=== PATIENT | female | born 1940 | race Caucasian/White ===

== ENCOUNTER 2019-08-20 21:37 | Emergency (ER) | payer OTHER, MEDICARE ==
[2019-08-20 21:45] VITALS: RESP 18; TEMP 99.2
--- NOTE | 2019-08-20 21:56 | ED ---
Fall HPI - General Chief Complaint: Fall Stated Complaint: Fall - Head injury Time Seen by Provider: 08/20/19 21:50 Source: patient, EMS, RN notes reviewed, old records reviewed Mode of arrival: EMS Limitations: no limitations - History of Present Illness Initial Comments: This is an 79-year-old female to the ER status post fall showed a trip and fall with positive LOC prior to arrival. Patient is accepted in transfer secondary to a facility not having a CAT scan. Patient had sustained laceration. Patient states this point she has a mild headache but nothing significant. No nausea or vomiting not on blood thinners. 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 ROS Other: All systems not noted in ROS Statement are negative. Past Medical History Past Medical History: Hypertension, Renal Disease History of Any Multi-Drug Resistant Organisms: None Reported Past Surgical History: Bowel Resection Past Psychological History: No Psychological Hx Reported Smoking Status: Never smoker Past Alcohol Use History: None Reported Past Drug Use History: None Reported General Exam General appearance: alert, in no apparent distress Head exam: Present: normocephalic, normal inspection. Absent: atraumatic (Patient does have bandages to face laceration which is repaired) Eye exam: Present: normal appearance, PERRL, EOMI. Absent: scleral icterus, conjunctival injection, periorbital swelling ENT exam: Present: normal exam, mucous membranes moist Neck exam: Present: normal inspection. Absent: tenderness, meningismus, lymphadenopathy Respiratory exam: Present: normal lung sounds bilaterally. Absent: respiratory distress, wheezes, rales, rhonchi, stridor Cardiovascular Exam: Present: regular rate, normal rhythm, normal heart sounds. Absent: systolic murmur, diastolic murmur, rubs, gallop, clicks GI/Abdominal exam: Present: soft, normal bowel sounds. Absent: distended, tenderness, guarding, rebound, rigid Extremities exam: Present: normal inspection, full ROM, normal capillary refill. Absent: tenderness, pedal edema, joint swelling, calf tenderness Back exam: Present: normal inspection Neurological exam: Present: alert, oriented X3, CN II-XII intact Psychiatric exam: Present: normal affect, normal mood Skin exam: Present: warm, dry, intact, normal color. Absent: rash Course Vital Signs 08/20/19 21:41 Temperature 99.2 F Pulse Rate 76 Respiratory 18 Rate Blood Pressure 165/80 O2 Sat by Pulse 98 Oximetry - Reevaluation(s) Reevaluation #1: 08/20/19 22:03 Medical record transferring record is reviewed including prior lab tests Reevaluation #2: 08/20/19 22:33 Spoke with patient and family regarding findings here in computed tomography scan the transfer for definitive treatment - Consultations Consultation #1: spoke with Britni Bradshaw who is agreeable for transfer. Medical Decision Making - Medical Decision Making 79 female to the ED for evaluation patient closely for evaluation regards to fall patient has positive intraparenchymal hemorrhage. Patient accepted in transfer for CT scan due to the gall, patient will now be transferred for further evaluation management per neurosurgery - Radiology Data Radiology results: report reviewed (CT brain and C-spine and facial bones is negative for traumatic fracture but does have intraparenchymal hemorrhage), image reviewed Disposition Clinical Impression: Fall, Traumatic intraparenchymal hemorrhage Disposition: OTHER INSTITUTION NOT DEFINED Condition: Serious Is patient prescribed a controlled substance at d/c from ED?: No Referrals: Nonstaff,Physician [Primary Care Provider] - 1-2 days - Out of Hospital Transfer - Req. Specs Out of Hospital Transfer - Requested Specifics: Other Emergency Center ([facility]ni [facility]shaw)
[2019-08-20 22:31] LABS: Appearance,Urine Cloudy (Clear); Bacteria,Urine Many /hpf; Bilirubin,Urine Negative (Negative); Blood,Urine Small (Negative); Color,Urine Light Yellow; Glucose,Urine (UA) Negative (Negative); Ketones,Urine Negative (Negative); Leukocyte Esterase,Urine Large (Negative); Nitrite,Urine Negative (Negative); Protein,Urine 1+ (Negative); RBC,Urine 5 /hpf (0-5); Specific Gravity,Urine 1.008 (1.001-1.035); Squamous Epithelial Cell,Urine 1 /hpf (0-4); Urobilinogen,Urine <2.0 mg/dL (<2.0); WBC,Urine >182 /hpf (0-5)
--- NOTE | 2019-08-20 22:35 | CT ---
EXAMINATION TYPE: CT brain sheila rosen DATE OF EXAM: 08/20/2019 COMPARISON: None HISTORY: Fall with head injury. CT DLP: 1120.1 mGycm Automated exposure control for dose reduction was used. There are multiple areas of subarachnoid and parenchymal hemorrhage involving both frontal lobes and also the left temporal lobe. Areas measure up to 12 mm. There is no midline shift. Ventricles have no rmal size. The skull base is intact. Calvarium is intact. Cervical vertebra have normal alignment. Disc spaces are fairly normal. There is minor spurring of th e endplates. Facet joints are intact. There is hypertrophic mild multilevel facet arthropathy. IMPRESSION: Acute parenchymal and subarachnoid hemorrhage involving both frontal lobes and left temporal lobe. No mass effect. Negative CT scan cervical spine. Minor facet arthropathy. Exam was discussed with Dr. Berger at 10:30 PM.
--- NOTE | 2019-08-20 22:43 | CT ---
EXAMINATION TYPE: CT facial bones wo con DATE OF EXAM: 08/20/2019 COMPARISON: None HISTORY: Fall with head injury. CT DLP: 1120.1 mGycm Automated exposure control for dose reduction was used. Multiple axial sections were obtained from the bottom of the mandible to the top of the frontal sinus es without contrast. The mandibular ring is intact. Temporomandibular joints are intact. Zygomatic arches appear normal. S kull base is intact. Maxilla is intact. There is fairly normal aeration of the paranasal sinuses. The re is normal aeration of the mastoid sinuses. Nasal bone is intact. There is no evidence of orbital m ass. The globes are symmetric. I see no evidence of a fracture. There is no evidence of blowout fract ure. IMPRESSION: No evidence of a facial bone fracture. Normal paranasal sinuses.
[2019-08-20] MEDS ORDERED: cefTRIAXone IN SWFI 1,000 MG/10 ML SYRINGE IVP STA (22:49)
[2019-08-20] MEDS ORDERED: MORPHINE SULFATE 4 MG/ML SYRINGE IVP STA (22:49)
[2019-08-20] MEDS ORDERED: ONDANSETRON 4 MG/2 ML VIAL IVP STA (22:49)
[2019-08-20] MEDS ORDERED: ACETAMINOPHEN TAB 500 MG TAB PO STA (23:12)
[2019-08-20 23:45] VITALS: BP 161/72; PULSE 68
== END 2019-08-20 23:43 | disposition other institution (70) ==
LOC: EC 21:37
DX: S06.300A Unspecified focal traumatic brain injury without loss of consciousness, initial encounter (principal); I10 Essential (primary) hypertension; W01.198A Fall on same level from slipping, tripping and stumbling with subsequent striking against other object, initial encounter
CPT/HCPCS: 81001; 87086; 72125; 70486; 70450; 99285; 96374; 96375; J2405; J0696; 87077; 87186

== ENCOUNTER 2020-10-14 13:16 | Inpatient (IN) | payer MEDICARE, OTHER ==
--- NOTE | 2020-10-14 13:52 | ED ---
General Adult HPI - General Chief complaint: Abdominal Pain Stated complaint: ABD pain Time Seen by Provider: 10/14/20 13:29 Source: patient, family, RN notes reviewed, old records reviewed Mode of arrival: wheelchair Limitations: no limitations - History of Present Illness Initial comments: 80-year-old female history of chronic kidney disease presenting for evaluation of abdominal distention, bloating, lower extremity edema. Patient was seen at an outside hospital on June [address] which showed concern for liver cirrhosis and ascites. She has no previous history of liver disease. She denies fever. States her abdomen is distended with a mild amount of pain. This is been present for approximately one week. She does follow with nephrology regarding her chronic kidney disease and has a left upper extremity fistula but is not currently on hemodialysis. - Related Data Allergies Allergy/AdvReac Type Severity Reaction Status Date / Time No Known Allergies Allergy Verified 10/14/20 13:22 Review of Systems ROS Statement: Those systems with pertinent positive or pertinent negative responses have been documented in the HPI. ROS Other: All systems not noted in ROS Statement are negative. Past Medical History Past Medical History: Hypertension, Renal Disease History of Any Multi-Drug Resistant Organisms: None Reported Past Surgical History: Bowel Resection Past Psychological History: No Psychological Hx Reported Smoking Status: Never smoker Past Alcohol Use History: None Reported Past Drug Use History: None Reported General Exam Limitations: no limitations General appearance: alert, in no apparent distress Head exam: Present: atraumatic, normocephalic Eye exam: Present: normal appearance, PERRL ENT exam: Present: normal exam Neck exam: Present: normal inspection Respiratory exam: Present: rales. Absent: respiratory distress Cardiovascular Exam: Present: regular rate, normal rhythm GI/Abdominal exam: Present: distended, tenderness. Absent: guarding, rebound Extremities exam: Present: pedal edema Neurological exam: Present: alert, oriented X3, CN II-XII intact. Absent: motor sensory deficit Psychiatric exam: Present: normal affect, normal mood Skin exam: Present: warm, dry, intact. Absent: cyanosis, diaphoretic Course Vital Signs 10/14/20 10/14/20 13:17 14:22 Temperature 97.6 F Pulse Rate 62 70 Respiratory 18 18 Rate Blood Pressure 148/69 132/70 O2 Sat by Pulse 100 99 Oximetry - Reevaluation(s) Reevaluation #1: 10/14/20 15:[address] [facility] will be obtained Medical Decision Making - Medical Decision Making 80-year-old female presenting with abdominal distention, generalized abdominal pain. Patient was noted to have ascites and cirrhosis on CT performed to 5 days prior at outside hospital. These records will be obtained. She has a mild leukocytosis 11.4, hemoglobin stable at 12.2. She has an INR of 1.2, she is acidotic with chronic kidney disease and elevated creatinine. She has an albumin 2.7. She will be admitted, case has been discussed with Dr. Ding, gastroenterology will be placed on consult. - Lab Data Result diagrams: 10/14/20 14:04 10/14/20 14:04 Lab Results 10/14/20 10/14/20 10/14/20 Range/Units 14:04 14:04 14:04 WBC 11.4 H (3.8-10.6) k/uL RBC 3.79 L (3.80-5.40) m/uL Hgb 12.2 (11.4-16.0) gm/dL Hct 40.5 (34.0-46.0) % MCV 106.8 H (80.0-100.0) fL MCH 32.1 (25.0-35.0) pg MCHC 30.1 L (31.0-37.0) g/dL RDW 15.1 (11.5-15.5) % Plt Count 154 (150-450) k/uL MPV 7.6 Neutrophils % 77 % Lymphocytes % 12 % Monocytes % 9 % Eosinophils % 2 % Basophils % 0 % Neutrophils # 8.7 H (1.3-7.7) k/uL Lymphocytes # 1.3 (1.0-4.8) k/uL Monocytes # 1.0 (0-1.0) k/uL Eosinophils # 0.2 (0-0.7) k/uL Basophils # 0.0 (0-0.2) k/uL Hypochromasia Marked Macrocytosis Moderate PT 12.5 H (9.0-12.0) sec INR 1.2 H (<1.2) APTT 25.1 (22.0-30.0) sec Sodium (137-145) mmol/L Potassium (3.5-5.1) mmol/L Chloride (98-107) mmol/L Carbon Dioxide (22-30) mmol/L Anion Gap mmol/L BUN (7-17) mg/dL Creatinine (0.52-1.04) mg/dL Est GFR (CKD-EPI)AfAm (>60 ml/min/1.73 sqM) Est GFR (CKD-EPI)NonAf (>60 ml/min/1.73 sqM) Glucose (74-99) mg/dL Calcium (8.4-10.2) mg/dL Total Bilirubin (0.2-1.3) mg/dL AST (14-36) U/L ALT (4-34) U/L Alkaline Phosphatase (38-126) U/L Ammonia (<30) umol/L Total Protein (6.3-8.2) g/dL Albumin (3.5-5.0) g/dL Amylase (30-110) U/L Lipase (23-300) U/L Urine Color Yellow Urine Appearance Cloudy H (Clear) Urine pH 6.0 (5.0-8.0) Ur Specific [place] 1.013 (1.001-1.035) Urine Protein 1+ H (Negative) Urine Glucose (UA) Negative (Negative) Urine Ketones Negative (Negative) Urine Blood Trace H (Negative) Urine Nitrite Negative (Negative) Urine Bilirubin Negative (Negative) Urine Urobilinogen 2.0 (<2.0) mg/dL Ur Leukocyte Esterase Large H (Negative) Urine RBC 4 (0-5) /hpf Urine WBC 3 (0-5) /hpf Ur Squamous Epith Cells 7 H (0-4) /hpf Urine Bacteria Occasional H (None) /hpf Urine Mucus Rare H (None) /hpf 10/14/20 10/14/20 Range/Units 14:04 14:04 WBC (3.8-10.6) k/uL RBC (3.80-5.40) m/uL Hgb (11.4-16.0) gm/dL Hct (34.0-46.0) % MCV (80.0-100.0) fL MCH (25.0-35.0) pg MCHC (31.0-37.0) g/dL RDW (11.5-15.5) % Plt Count (150-450) k/uL MPV Neutrophils % % Lymphocytes % % Monocytes % % Eosinophils % % Basophils % % Neutrophils # (1.3-7.7) k/uL Lymphocytes # (1.0-4.8) k/uL Monocytes # (0-1.0) k/uL Eosinophils # (0-0.7) k/uL Basophils # (0-0.2) k/uL Hypochromasia Macrocytosis PT (9.0-12.0) sec INR (<1.2) APTT (22.0-30.0) sec Sodium 137 (137-145) mmol/L Potassium 4.1 (3.5-5.1) mmol/L Chloride 116 H (98-107) mmol/L Carbon Dioxide 12 L (22-30) mmol/L Anion Gap 9 mmol/L BUN 24 H (7-17) mg/dL Creatinine 2.81 H (0.52-1.04) mg/dL Est GFR (CKD-EPI)AfAm 17 (>60 ml/min/1.73 sqM) Est GFR (CKD-EPI)NonAf 15 (>60 ml/min/1.73 sqM) Glucose 113 H (74-99) mg/dL Calcium 7.7 L (8.4-10.2) mg/dL Total Bilirubin 0.5 (0.2-1.3) mg/dL AST 20 (14-36) U/L ALT 11 (4-34) U/L Alkaline Phosphatase 180 H (38-126) U/L Ammonia <9 (<30) umol/L Total Protein 6.3 (6.3-8.2) g/dL Albumin 2.7 L (3.5-5.0) g/dL Amylase 53 (30-110) U/L Lipase 112 (23-300) U/L Urine Color Urine Appearance (Clear) Urine pH (5.0-8.0) Ur Specific [place] (1.001-1.035) Urine Protein (Negative) Urine Glucose (UA) (Negative) Urine Ketones (Negative) Urine Blood (Negative) Urine Nitrite (Negative) Urine Bilirubin (Negative) Urine Urobilinogen (<2.0) mg/dL Ur Leukocyte Esterase (Negative) Urine RBC (0-5) /hpf Urine WBC (0-5) /hpf Ur Squamous Epith Cells (0-4) /hpf Urine Bacteria (None) /hpf Urine Mucus (None) /hpf Disposition Clinical Impression: Abdominal pain, Ascites Disposition: ADMITTED IP TO THIS HOSP Condition: Stable Is patient prescribed a controlled substance at d/c from ED?: No Referrals: Nonstaff,Physician [Primary Care Provider] - 1-2 days Decision to Admit Reason: Admit from EC Decision Date: 10/14/20 Decision Time: 15:30
[2020-10-14 14:37] LABS: Appearance,Urine Cloudy (Clear); Bacteria,Urine Occasional /hpf; Bilirubin,Urine Negative (Negative); Blood,Urine Trace (Negative); Color,Urine Yellow; Glucose,Urine (UA) Negative (Negative); Ketones,Urine Negative (Negative); Leukocyte Esterase,Urine Large (Negative); Mucus,Urine Rare /hpf; Nitrite,Urine Negative (Negative); Protein,Urine 1+ (Negative); RBC,Urine 4 /hpf (0-5); Specific Gravity,Urine 1.013 (1.001-1.035); Squamous Epithelial Cell,Urine 7 /hpf (0-4); WBC,Urine 3 /hpf (0-5)
[2020-10-14 14:38] LABS: Albumin 2.7 g/dL (3.5-5.0); Calcium 7.7 mg/dL (8.4-10.2); Total Bilirubin 0.5 mg/dL (0.2-1.3); Total Protein 6.3 g/dL (6.3-8.2)
[2020-10-14 14:40] LABS: Basophils % (A) 0 %; Eosinophils # (A) 0.2 k/uL (0-0.7); Eosinophils % (A) 2 %; HCT 40.5 % (34.0-46.0); HGB 12.2 gm/dL (11.4-16.0); Hypochromasia Marked; Lymphocytes # (A) 1.3 k/uL (1.0-4.8); Lymphocytes % (A) 12 %; MCH 32.1 pg (25.0-35.0); MCHC 30.1 g/dL (31.0-37.0); MCV 106.8 fL (80.0-100.0); Macrocytosis Moderate; Mean Platelet Volume 7.6; Monocytes % (A) 9 %; Neutrophils # (A) 8.7 k/uL (1.3-7.7); Neutrophils % (A) 77 %; Platelet Count 154 k/uL (150-450); RBC 3.79 m/uL (3.80-5.40); RDW 15.1 % (11.5-15.5); WBC 11.4 k/uL (3.8-10.6)
[2020-10-14 14:42] LABS: INR 1.2 (<1.2); Partial Thromboplastin Time 25.1 sec (22.0-30.0); Prothrombin Time 12.5 sec (9.0-12.0)
[2020-10-14 14:44] LABS: Potassium 4.1 mmol/L (3.5-5.1)
[2020-10-14] MEDS ORDERED: NALOXONE 0.4 MG/ML 1 ML VIAL IV PRN (15:25)
[2020-10-14] MEDS ORDERED: HYDROmorphone 0.5 MG/0.5 ML SYRINGE IVP PRN (15:25)
--- NOTE | 2020-10-14 16:54 | US ---
EXAMINATION TYPE: US gallbladder DATE OF EXAM: 10/14/2020 COMPARISON: NONE CLINICAL HISTORY: Abdominal pain, ascites. EXAM MEASUREMENTS: Liver Length: 16.6 cm Gallbladder Wall: 1.0 cm CBD: 0.7 cm Right Kidney: 10.5 x 3.6 x 4.0 cm Pancreas: Obscured by bowel gas Liver: Nodular contour. Limited visualization. Possible cystic area visualized left lobe measuring 1 .9 x 1.7 x 2.0 cm Gallbladder: Wall is thickened with some possible pericholecystic fluid. Echogenic foci visualized, possible stone Evidence for sonographic Hawley's sign: No CBD: dilated but within normal limits at this patient's age Right Kidney: Cyst visualized measuring 1.8 x 1.7 x 1.5 cm Large amount of ascites visualized in all 4 quadrants IMPRESSION: There are limitations to the exam. There is ascites. Findings consistent with cirrhosis. Abnormal gallbladder wall thickening could be related to ascites, difficult to exclude cholecystitis, probable gallstone. Indeterminate cystic focus noted within the liver.
--- NOTE | 2020-10-14 18:48 | P.HPIM ---
History of Present Illness H&P Date: 10/14/20 Chief Complaint: Worsening abdominal distention This is a 80-year-old female with past medical history noted below significant for stage IIIB chronic kidney disease who presented to the emergency room with worsening abdominal distention and discomfort. Patient said that her problems started several weeks ago and is being getting progressively worse. It is associated with decreased appetite and fullness sensation in her abdomen. She denies any fevers or chills. She said that she was evaluated several weeks ago at an outside hospital and a computed tomography scan of the abdomen was done showing evidence of liver cirrhosis and ascites. Patient denies any known his tory of liver cirrhosis. She was never a heavy drinker of alcohol. She denies any history of chronic hepatitis. She otherwise denies any specific concerns or complaints. She has been treated by her PCP for a UTI. Review of Systems Review of system: 14 points review of systems were obtained and were negative except to what were mentioned in the HPI. 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, cataracts, let arm fistula Past Psychological History: No Psychological Hx Reported Smoking Status: Never smoker Past Alcohol Use History: None Reported Past Drug Use History: None Reported Medications and Allergies Home Medications Medication Instructions Recorded Confirmed Type Allopurinol [Zyloprim] 200 mg PO DAILY 10/14/20 10/14/20 History Calcitriol [Rocaltrol] 0.25 mcg PO MOWEFR 10/14/20 10/14/20 History Carvedilol [Coreg] 12.5 mg PO BID@0800,1200 10/14/20 10/14/20 History Cephalexin [Keflex] 500 mg PO TID 10/14/20 10/14/20 History Cholecalciferol [Vitamin D3 (25 125 mcg PO DAILY 10/14/20 10/14/20 History Mcg = 1000 Iu)] Cyanocobalamin (Vitamin B-12) 2,500 mcg PO DAILY 10/14/20 10/14/20 History [Vitamin B-12] PARoxetine HCL [Paxil] 20 mg PO HS 10/14/20 10/14/20 History Potassium Chloride ER [K-Dur 20] 20 meq PO DAILY 10/14/20 10/14/20 History Sodium Bicarbonate Tab 650 mg PO TID 10/14/20 10/14/20 History Vit C/E/Zn/Coppr/Lutein/Zeaxan 1 cap PO BID 10/14/20 10/14/20 History [Preservision Areds 2 Softgel] Allergies Allergy/AdvReac Type Severity Reaction Status Date / Time No Known Allergies Allergy Verified 10/14/20 16:35 Physical Exam Vitals: Vital Signs Temp Pulse Pulse Resp BP BP Pulse Ox 10/14/20 17:46 97.5 F L 68 16 137/68 99 10/14/20 17:09 98.0 F 68 16 127/69 99 10/14/20 14:22 70 18 132/70 99 10/14/20 13:17 97.6 F 62 18 148/69 100 Intake and Output 10/14/20 10/14/20 10/14/20 06:59 14:59 22:59 Other: Weight 73.482 kg 73.482 kg General: The patient is awake and alert, in no distress Eye: there is normal conjunctiva bilaterally. Neck: The neck is supple, there is no JVD. Cardiovascular: Normal S1-S2, no S3-S4, no murmurs. Respiratory: Lungs clear to auscultation bilaterally Gastrointestinal: Abdomen is distended with evidence of large ascites and fluid shifting Musculoskeletal: There is n+1-2 pedal edema. Neurological:. Speech is normal. Skin: Skin is warm and dry Results CBC & Chem 7: 10/14/20 14:04 10/14/20 14:04 Labs: Abnormal Lab Results - Last 24 Hours (Table) 10/14/20 10/14/20 10/14/20 Range/Units 14:04 14:04 14:04 WBC 11.4 H (3.8-10.6) k/uL RBC 3.79 L (3.80-5.40) m/uL MCV 106.8 H (80.0-100.0) fL MCHC 30.1 L (31.0-37.0) g/dL Neutrophils # 8.7 H (1.3-7.7) k/uL PT 12.5 H (9.0-12.0) sec INR 1.2 H (<1.2) Chloride (98-107) mmol/L Carbon Dioxide (22-30) mmol/L BUN (7-17) mg/dL Creatinine (0.52-1.04) mg/dL Glucose (74-99) mg/dL Calcium (8.4-10.2) mg/dL Alkaline Phosphatase (38-126) U/L Albumin (3.5-5.0) g/dL Urine Appearance Cloudy H (Clear) Urine Protein 1+ H (Negative) Urine Blood Trace H (Negative) Ur Leukocyte Esterase Large H (Negative) Ur Squamous Epith Cells 7 H (0-4) /hpf Urine Bacteria Occasional H (None) /hpf Urine Mucus Rare H (None) /hpf 10/14/20 Range/Units 14:04 WBC (3.8-10.6) k/uL RBC (3.80-5.40) m/uL MCV (80.0-100.0) fL MCHC (31.0-37.0) g/dL Neutrophils # (1.3-7.7) k/uL PT (9.0-12.0) sec INR (<1.2) Chloride 116 H (98-107) mmol/L Carbon Dioxide 12 L (22-30) mmol/L BUN 24 H (7-17) mg/dL Creatinine 2.81 H (0.52-1.04) mg/dL Glucose 113 H (74-99) mg/dL Calcium 7.7 L (8.4-10.2) mg/dL Alkaline Phosphatase 180 H (38-126) U/L Albumin 2.7 L (3.5-5.0) g/dL Urine Appearance (Clear) Urine Protein (Negative) Urine Blood (Negative) Ur Leukocyte Esterase (Negative) Ur Squamous Epith Cells (0-4) /hpf Urine Bacteria (None) /hpf Urine Mucus (None) /hpf Thrombosis Risk Factor Assmnt - Choose All That Apply Each Risk Factor Represents 3 Points: Age 75 years or older Thrombosis Risk Factor Assessment Total Risk Factor Score: 3 Thrombosis Risk Factor Assessment Level: Moderate Risk Assessment and Plan Assessment: 1. Liver cirrhosis, exact etiology unclear. Patient denies significant alcohol use. I would obtain acute viral hepatitis panel. GI consulted for further e valuation. 2. Large ascites, IR consulted for paracentesis in the morning. May require albumin. I'll start patient on diuretics with Lasix 40 mg twice daily and spironolactone 50 mg daily 3. Stage IIIB chronic kidney disease, baseline creatinine unknown to me. We will continue to monitor closely 4. Essential hypertension: Blood pressure within acceptable range. Continue home dose of Coreg 5. DVT prophylaxis with subcu heparin
[2020-10-14] MEDS: PARoxetine 20 MG TAB PO SCH (20:11)
[2020-10-14] MEDS: SODIUM BICARBONATE TAB 650 MG TAB PO SCH (20:11)
[2020-10-14] MEDS ORDERED: MAG HYDROX/AL HYDROX/SIMETH 30 ML CUP PO PRN (22:04)
[2020-10-15 01:26] LABS: Hepatitis A Antibody IgM Non-Reactive (Non-Reactive); Hepatitis B Surface Antigen Non-Reactive (Non-Reactive); Hepatitis C IgG Antibody Non-Reactive (Non-Reactive)
[2020-10-15 07:43] LABS: African American GFR (CKD) 17 (>60 ml/min/1.73 sqM); Anion Gap 12 mmol/L; Blood Urea Nitrogen 24 mg/dL (7-17); Calcium 7.4 mg/dL (8.4-10.2); Chloride 115 mmol/L (98-107); Glucose 94 mg/dL (74-99); Magnesium 1.8 mg/dL (1.6-2.3); Non-African American GFR(CKD) 15 (>60 ml/min/1.73 sqM); Sodium 136 mmol/L (137-145)
[2020-10-15 07:45] LABS: Potassium 3.1 mmol/L (3.5-5.1)
[2020-10-15 07:52] LABS: Carbon Dioxide 9 mmol/L (22-30)
[2020-10-15] MEDS: carvediloL 12.5 MG TAB PO SCH ×2 (08:04→12:54)
[2020-10-15] MEDS: FUROSEMIDE 40 MG TAB PO SCH ×2 (08:04→16:26)
[2020-10-15] MEDS: SPIRONOLACTONE 25 MG TAB PO SCH (08:05)
[2020-10-15] MEDS: SODIUM BICARBONATE TAB 650 MG TAB PO SCH ×5 (08:05→20:31)
[2020-10-15] MEDS ORDERED: POTASSIUM CHLORIDE 20 MEQ in WATER FOR INJECTION 1 100ML.BAG IVPB STA (08:09)
[2020-10-15] MEDS ORDERED: POTASSIUM CHLORIDE ER 20 MEQ TAB.ER PO STA (08:09)
[2020-10-15 09:06] LABS: VBG PH 7.17 (7.31-7.41)
[2020-10-15] MEDS ORDERED: DEXTROSE 5% IN WATER 1,000 ML with SODIUM BICARB (1 MEQ/ML) 50 ML IV SCH (09:30)
[2020-10-15] MEDS: ALBUMIN HUMAN 25% 50 ML in EMPTY BAG 1 BAG IVPB SCH ×2 (12:00→12:21)
--- NOTE | 2020-10-15 12:30 | US ---
Ultrasound-guided paracentesis. DATE OF EXAM: 10/15/2020 CLINICAL HISTORY: Ascites The procedure was discussed with the patient. The risks, complications, benefits, and alternatives we re discussed and any questions were answered. Informed consent was obtained. The patient was placed s upine on the ultrasound table and prepped and draped in the usual sterile fashion. All elements of maximal barrier technique were utilized. Under ultrasound guidance, access into the right lower quadrant was obtained, via the paracentesis catheter system and direct ultrasound guidanc e. Approximately 5 liters of straw-colored fluid was removed. The patient was stable throughout the proc edure and remained stable upon discharge from Department of Radiology. IMPRESSION: Successful paracentesis under ultrasound guidance.
[2020-10-15] MEDS: DEXTROSE 5% IN WATER 1,000 ML with SODIUM BICARB (1 MEQ/ML) 150 ML IV SCH ×2 (12:54→23:56)
--- NOTE | 2020-10-15 14:09 | P.PN ---
Subjective Progress Note Date: 10/15/20 Patient is doing a lot better today. She had paracentesis this morning and is feeling a lot more comfortable. She said that this is a first day that she is able to eat and enjoys her food. Objective - Vital Signs Vital signs: Vital Signs Temp 98.5 F 10/15/20 11:52 Pulse 75 10/15/20 12:37 Resp 16 10/15/20 12:37 BP 103/51 10/15/20 12:37 Pulse Ox 100 10/15/20 11:21 Intake & Output 10/14/20 10/15/20 10/15/20 18:59 06:59 18:59 Intake Total 530 Balance 530 Weight 73.482 kg Intake: Intake, IV Titration 50 Amount cefTRIAXone 1 gm In 50 Sodium Chloride 0.9% 50 ml @ 100 mls/hr IVPB Q24HR [facility] Rx#:[id number] Oral 480 Other: # Voids 2 - Exam General: The patient is awake and alert, in no distress Eye: there is normal conjunctiva bilaterally. Neck: The neck is supple, there is no JVD. Cardiovascular: Normal S1-S2, no S3-S4, no murmurs. Respiratory: Lungs clear to auscultation bilaterally Gastrointestinal: Abdomen is soft, nontender Musculoskeletal: There is +3 pedal edema. Neurological:. Speech is normal. Skin: Skin is warm and dry - Labs CBC & Chem 7: 10/14/20 14:04 10/15/20 06:36 Labs: Abnormal Lab Results - Last 24 Hours (Table) 10/14/20 10/14/20 10/14/20 Range/Units 14:04 14:04 14:04 WBC 11.4 H (3.8-10.6) k/uL RBC 3.79 L (3.80-5.40) m/uL MCV 106.8 H (80.0-100.0) fL MCHC 30.1 L (31.0-37.0) g/dL Neutrophils # 8.7 H (1.3-7.7) k/uL PT 12.5 H (9.0-12.0) sec INR 1.2 H (<1.2) VBG pH (7.31-7.41) VBG pCO2 (37-51) mmHg VBG HCO3 (24-28) mmol/L Sodium (137-145) mmol/L Potassium (3.5-5.1) mmol/L Chloride (98-107) mmol/L Carbon Dioxide (22-30) mmol/L BUN (7-17) mg/dL Creatinine (0.52-1.04) mg/dL Glucose (74-99) mg/dL Calcium (8.4-10.2) mg/dL Alkaline Phosphatase (38-126) U/L Albumin (3.5-5.0) g/dL Urine Appearance Cloudy H (Clear) Urine Protein 1+ H (Negative) Urine Blood Trace H (Negative) Ur Leukocyte Esterase Large H (Negative) Ur Squamous Epith Cells 7 H (0-4) /hpf Urine Bacteria Occasional H (None) /hpf Urine Mucus Rare H (None) /hpf 10/14/20 10/15/20 10/15/20 Range/Units 14:04 06:36 08:45 WBC (3.8-10.6) k/uL RBC (3.80-5.40) m/uL MCV (80.0-100.0) fL MCHC (31.0-37.0) g/dL Neutrophils # (1.3-7.7) k/uL PT (9.0-12.0) sec INR (<1.2) VBG pH 7.17 L* (7.31-7.41) VBG pCO2 33 L (37-51) mmHg VBG HCO3 12 L (24-28) mmol/L Sodium 136 L (137-145) mmol/L Potassium 3.1 L (3.5-5.1) mmol/L Chloride 116 H 115 H (98-107) mmol/L Carbon Dioxide 12 L 9 L* (22-30) mmol/L BUN 24 H 24 H (7-17) mg/dL Creatinine 2.81 H 2.90 H (0.52-1.04) mg/dL Glucose 113 H (74-99) mg/dL Calcium 7.7 L 7.4 L (8.4-10.2) mg/dL Alkaline Phosphatase 180 H (38-126) U/L Albumin 2.7 L (3.5-5.0) g/dL Urine Appearance (Clear) Urine Protein (Negative) Urine Blood (Negative) Ur Leukocyte Esterase (Negative) Ur Squamous Epith Cells (0-4) /hpf Urine Bacteria (None) /hpf Urine Mucus (None) /hpf Assessment and Plan Assessment: 1. Liver cirrhosis, exact etiology unclear. Patient denies significant alcohol use. Viral hepatitis panel negative. GI consulted for further evaluation. 2. Large ascites, status post 5 L paracentesis. Patient will be given albumin today. No evidence of SBP. I started patient on diuretics with Lasix 40 mg twice daily and spironolactone 50 mg daily 3. Stage IIIB chronic kidney disease, baseline creatinine unknown to me. We will continue to monitor closely 4. Acute metabolic acidosis secondary to worsening kidney failure. Patient was started on bicarb drip. Nephrology consulted for further evaluation. 5. Complicated UTI, started on IV ceftriaxone awaiting urine culture. Check bladder scan to assess PVR 6. Essential hypertension: Blood pressure within acceptable range. Continue home dose of Coreg 7. DVT prophylaxis with subcu heparin 8. CODE STATUS: Patient is full code. Discussed with her and her daughter at bedside who is her DURABLE POWER OF PLANNING ASSISTANT
[2020-10-15] MEDS: VIT A,C & E-LUTEIN-MINERALS 1 EACH TAB PO SCH ×2 (14:42→20:31)
[2020-10-15 15:39] LABS: Appearance,BF Clear; Color,BF Yellow
[2020-10-15 15:40] LABS: Nucleated Cells, Body Fluid 138 /uL; RBC, Body Fluid 45 /uL
[2020-10-15 15:42] LABS: Mononuclear WBC,Body Fluid 39 %; Polynuclear WBC,Body Fluid 61 %; Total Cells Counted,Body Fluid 100
[2020-10-15 20:08] LABS: Protein, Total 5.5 g/dL (6.2-8.2)
--- NOTE | 2020-10-15 20:16 | CONS ---
CONSULTATION REASON FOR CONSULTATION: Renal failure. HISTORY OF PRESENT ILLNESS: The patient is an 80-year-old female with chronic kidney disease, NKF stage IV, currently with a left arm AV fistula, who follows with in [place]. The patient was admitted to the hospital with complaints of increased swelling and increased abdominal distention as well as weakness. She was being treated for a urinary tract infection as outpatient. The patient denies any previous history of kidney diseases. She was noted to have significant ascites and is status post paracentesis for about 4 L. During this time patient has had good urine output. Her blood pressure has been on the lower side, with systolic around 100 to 103 mmHg. Patient denies use of any nonsteroidal anti-inflammatory agents prior to admission. Patient admitted to significant diarrhea for 4 to 5 days prior to admission. Her CO2 was only 9, and she is currently maintained on a bicarb drip. PAST MEDICAL HISTORY: Significant for hypertension, CKD stage 4. PAST SURGICAL HISTORY: Hysterectomy, history of intestinal bypass in 1979, cataract surgery, left arm AV fistula. SOCIAL HISTORY: Negative for smoking, drug abuse or alcohol abuse. MEDICATIONS: Medications prior to admission included zyloprim, Rocaltrol, Coreg, Keflex, vitamin B12, Paxil, potassium, sodium bicarb. ALLERGIES: NONE. REVIEW OF SYSTEMS: As per HPI. Other systems negative. PHYSICAL EXAMINATION: Patient is comfortable, awake, not in any acute distress. Alert, oriented x3. Blood pressure is 106/59, heart rate 73 per minute. Patient is afebrile. EXAMINATION OF THE HEART: S1 and S2. EXAMINATION OF LUNGS: Bilateral breath sounds are heard. Decreased breath sounds at bases. ABDOMEN: Soft, non-tender, distended. Examination of lower extremities shows edema 2+ bilaterally. FIELD ARTILLERY SENIOR SERGEANT exam is grossly intact. LABS: Sodium 136, potassium 3.1, chloride 115. CO2 is 9, BUN 24, creatinine 2.9. C difficile toxin is negative. Hemoglobin was 12.2, platelet count 154,000, WBCs 11.4. UA shows 1+ protein, trace blood, leukocyte esterase. WBCs were only 3. ASSESSMENT: 1. Chronic kidney disease, stage 4. Renal function probably close to baseline. Patient has a left arm AV fistula. 2. Severe metabolic acidosis, non gap, associated with diarrhea and some degree of renal acidosis, maintained on sodium bicarb at home. I will switch the IV bicarb to allow a higher dose of sodium bicarb in the IV. 3. Hypokalemia associated with gastrointestinal fluid loss and diarrhea and decreased oral intake. 4. Ascites, status post paracentesis of about 5 liters. GI is on consult. No previous history of liver diseases or ETOH abuse. Awaiting pathology. 5. Bilateral lower extremity edema associated with underlying chronic kidney disease and hypoalbuminemia and chronic liver disease. PLAN: Change IV fluids to D5W with 150 mEq of sodium bicarb. May continue with the oral dose of Lasix for now. Check chest x-ray. Avoid hypotension. Agree with albumin post paracentesis. Continue with the oral sodium bicarb as well. Add parameters for Coreg. Thank you for this consultation. Will continue to follow the patient with you during her hospitalization. MMODL / IJN: [id number] /
[2020-10-15] MEDS: PARoxetine 20 MG TAB PO SCH (20:31)
[2020-10-15 20:37] LABS: % Iron Saturation 22.65 (12.00-45.00)
[2020-10-15 21:48] LABS: Alpha Fetoprotein, Tumor Mkr <2.5 ng/mL (0.0-7.9); Carcinoembryonic Antigen 20.9 ng/mL (0.0-4.9)
[2020-10-16 02:14] LABS: Total Protein, Body Fluid 2230 mg/dL
[2020-10-16 03:18] LABS: Albumin, Fluid Source Peritoneal Fluid; Glucose, BF Source Peritoneal Fluid; Glucose, Body Fluid 95 mg/dL; LDH, Body Fluid Source Peritoneal Fluid
[2020-10-16] MEDS: carvediloL 6.25 MG TAB PO SCH ×2 (08:25→11:10)
[2020-10-16] MEDS: FUROSEMIDE 40 MG TAB PO SCH ×2 (08:27→16:29)
[2020-10-16] MEDS: SODIUM BICARBONATE TAB 650 MG TAB PO SCH ×4 (08:28→20:07)
[2020-10-16] MEDS: SPIRONOLACTONE 25 MG TAB PO SCH (08:28)
[2020-10-16] MEDS: VIT A,C & E-LUTEIN-MINERALS 1 EACH TAB PO SCH ×2 (08:29→20:07)
--- NOTE | 2020-10-16 09:36 | P.CONS ---
History of Present Illness - Reason for Consult Consult date: 10/15/20 Ascites Requesting physician: Talita Ding - Chief Complaint Ascites - History of Present Illness 80-year-old female with medical history significant for hypertension and chronic kidney disease who presented to the hospital for increasing abdominal distention and fluid overload. Patient has been having increasing abdominal distention and swelling of her lower extremities occurring over the past few weeks. She reports associated decreased oral intake secondary to her abdominal distention. Ultrasound of the abdomen performed on presentation significant for findings consistent with cirrhosis with abnormal gallbladder wall thickening which may be related to a ascites with a large amount of ascitic fluid noted in all 4 quadrants of the abdomen. The patient is status post paracentesis with 5 L of ascitic fluid removed. Fluid studies consistent with portal hypertension and cirrhosis. Acute viral hepatitis panel was negative. Patient denies any h istory of underlying liver disease. She has been started on Lasix 40 mg twice daily and Aldactone 50 mg daily. Nephrology service has been consulted to see the patient. Review of Systems REVIEW OF SYSTEMS: CONSTITUTIONAL: Denies any fevers, chills, does report weight gain secondary to fluid overload. CARDIOVASCULAR: Denies any chest pain, palpitations high or low blood pressures RESPIRATORY: Denies any shortness of breath, hemoptysis or cough. GENITOURINARY: No dysuria or hematuria, known history of CKD. MUSCULOSKELETAL: No weakness reported. SKIN: Denies any new rashes or lesions, jaundice or pallor. PSYCHIATRIC: Denies any depression or anxiety. NEUROLOGY: Denies headache, denies any new focal deficits. EARS/NOSE/THROAT: No recent hearing change, congestion, nasal discharge or sore throat. EYES: No pain in eyes, discharge or change in vision. GASTROINTESTINAL: As per HPI. Past Medical History Past Medical History: Hypertension, Renal Disease History of Any Multi-Drug Resistant Organisms: None Reported Past Surgical History: Hysterectomy Additional Past Surgical History / Comment(s): intestinal bypass-1980, cataracts, let arm fistula Past Psychological History: No Psychological Hx Reported Smoking Status: Never smoker Past Alcohol Use History: None Reported Past Drug Use History: None Reported Additional History: Family History: Reviewed with the patient and non contributory to medical presentation. Medications and Allergies Home Medications Medication Instructions Recorded Confirmed Type Allopurinol [Zyloprim] 200 mg PO DAILY 10/14/20 10/14/20 History Calcitriol [Rocaltrol] 0.25 mcg PO MOWEFR 10/14/20 10/14/20 History Carvedilol [Coreg] 12.5 mg PO BID@0800,1200 10/14/20 10/14/20 History Cephalexin [Keflex] 500 mg PO TID 10/14/20 10/14/20 History Cholecalciferol [Vitamin D3 (25 125 mcg PO DAILY 10/14/20 10/14/20 History Mcg = 1000 Iu)] Cyanocobalamin (Vitamin B-12) 2,500 mcg PO DAILY 10/14/20 10/14/20 History [Vitamin B-12] PARoxetine HCL [Paxil] 20 mg PO HS 10/14/20 10/14/20 History Potassium Chloride ER [K-Dur 20] 20 meq PO DAILY 10/14/20 10/14/20 History Sodium Bicarbonate Tab 650 mg PO TID 10/14/20 10/14/20 History Vit C/E/Zn/Coppr/Lutein/Zeaxan 1 cap PO BID 10/14/20 10/14/20 History [Preservision Areds 2 Softgel] Allergies Allergy/AdvReac Type Severity Reaction Status Date / Time No Known Allergies Allergy Verified 10/14/20 16:35 Physical Exam Vitals: Vital Signs Temp Pulse Pulse Resp BP BP Pulse Ox 10/15/20 12:07 77 18 126/66 10/15/20 11:52 98.5 F 69 18 110/65 10/15/20 11:21 72 16 114/52 100 10/15/20 11:15 73 18 114/54 100 10/15/20 11:00 70 16 116/58 100 10/15/20 10:50 72 18 127/61 100 10/15/20 10:37 72 16 120/54 99 10/15/20 04:25 97.2 F L 84 18 121/70 96 10/14/20 20:00 98.6 F 85 18 148/72 98 10/14/20 17:46 97.5 F L 68 16 137/68 99 10/14/20 17:09 98.0 F 68 16 127/69 99 10/14/20 14:22 70 18 132/70 99 10/14/20 13:17 97.6 F 62 18 148/69 100 Intake and Output 02/10/15/20 10/15/20 22:59 06:59 14:59 Intake Total 240 290 Balance 240 290 Intake: Intake, IV Titration 50 Amount cefTRIAXone 1 gm In 50 Sodium Chloride 0.9% 50 ml @ 100 mls/hr IVPB Q24HR [facility] Rx#:[id number] Oral 240 240 Other: # Voids 2 Weight 73.482 kg On physical examination, patient appears comfortable in no apparent distress. HEAD: Normocephalic, atraumatic. EYES: No scleral icterus. No conjunctival injection. MOUTH: No lesions, tongue midline. NECK: Trachea midline, no gross abnormalities. CHEST: Clear to auscultation with no wheezing or rhonchi appreciated. HEART: S1-S2 appreciated. ABDOMEN: Soft, nontender to palpation and distended. Bowel sounds are positive. No organomegaly. No guarding or rigidity. EXTREMITIES: No pedal edema. SKIN: No rashes, no jaundice. NEUROLOGIC: Alert and oriented x3. No focal deficits. Results CBC & Chem 7: 10/14/20 14:04 10/15/20 06:36 Labs: Abnormal Lab Results - Last 24 Hours (Table) 10/14/20 10/14/20 10/14/20 Range/Units 14:04 14:04 14:04 WBC 11.4 H (3.8-10.6) k/uL RBC 3.79 L (3.80-5.40) m/uL MCV 106.8 H (80.0-100.0) fL MCHC 30.1 L (31.0-37.0) g/dL Neutrophils # 8.7 H (1.3-7.7) k/uL PT 12.5 H (9.0-12.0) sec INR 1.2 H (<1.2) VBG pH (7.31-7.41) VBG pCO2 (37-51) mmHg VBG HCO3 (24-28) mmol/L Sodium (137-145) mmol/L Potassium (3.5-5.1) mmol/L Chloride (98-107) mmol/L Carbon Dioxide (22-30) mmol/L BUN (7-17) mg/dL Creatinine (0.52-1.04) mg/dL Glucose (74-99) mg/dL Calcium (8.4-10.2) mg/dL Alkaline Phosphatase (38-126) U/L Albumin (3.5-5.0) g/dL Urine Appearance Cloudy H (Clear) Urine Protein 1+ H (Negative) Urine Blood Trace H (Negative) Ur Leukocyte Esterase Large H (Negative) Ur Squamous Epith Cells 7 H (0-4) /hpf Urine Bacteria Occasional H (None) /hpf Urine Mucus Rare H (None) /hpf 10/14/20 10/15/20 10/15/20 Range/Units 14:04 06:36 08:45 WBC (3.8-10.6) k/uL RBC (3.80-5.40) m/uL MCV (80.0-100.0) fL MCHC (31.0-37.0) g/dL Neutrophils # (1.3-7.7) k/uL PT (9.0-12.0) sec INR (<1.2) VBG pH 7.17 L* (7.31-7.41) VBG pCO2 33 L (37-51) mmHg VBG HCO3 12 L (24-28) mmol/L Sodium 136 L (137-145) mmol/L Potassium 3.1 L (3.5-5.1) mmol/L Chloride 116 H 115 H (98-107) mmol/L Carbon Dioxide 12 L 9 L* (22-30) mmol/L BUN 24 H 24 H (7-17) mg/dL Creatinine 2.81 H 2.90 H (0.52-1.04) mg/dL Glucose 113 H (74-99) mg/dL Calcium 7.7 L 7.4 L (8.4-10.2) mg/dL Alkaline Phosphatase 180 H (38-126) U/L Albumin 2.7 L (3.5-5.0) g/dL Urine Appearance (Clear) Urine Protein (Negative) Urine Blood (Negative) Ur Leukocyte Esterase (Negative) Ur Squamous Epith Cells (0-4) /hpf Urine Bacteria (None) /hpf Urine Mucus (None) /hpf US - abdomen: report reviewed (Ultrasound of the abdomen performed on presentation significant for findings consistent with cirrhosis with abnormal gallbladder wall thickening which may be related to a ascites with a large amount of ascitic fluid noted in all 4 quadrants of the abdomen.) Assessment and Plan (1) Cryptogenic cirrhosis of liver Narrative/Plan: 80-year-old female presenting to the hospital due to concerns over abdominal distention and fluid overload. She has a known history of chronic kidney disease and has previous fistula placement. She denies any known history of liver disease but was recently told of possible cirrhosis on visit to the emergency department. On current presentation the patient has had 5 L of ascitic fluid removed with SAAG of 1.2 and ascitic protein less than 2.5 consistent with portal hypertension and likely cryptogenic cirrhosis from fatty liver disease. Current Visit: Yes Status: Acute Code(s): K74.69 - OTHER CIRRHOSIS OF LIVER SNOMED Code(s): 61169880 (2) Abdominal pain Current Visit: Yes Status: Acute Code(s): R10.9 - UNSPECIFIED ABDOMINAL PAIN SNOMED Code(s): 43341793 (3) Ascites Current Visit: Yes Status: Acute Code(s): R18.8 - OTHER ASCITES SNOMED Code(s): 811703423 Plan: Supportive care Okay for sodium restricted diet, extensive discussion with the patient regarding need for sodium restriction for control of fluid overload Lasix 40 mg twice daily initiated by the primary team and Aldactone 50 mg initiated, nephrology service has been consulted for further management given the patient's underlying chronic kidney disease Continue aggressive electrolyte replacement AFP ordered Albumin given after paracentesis Case discussed with the patient and her daughter at length Thank you for allowing us to participate in the care of the patient we will continue to follow
--- NOTE | 2020-10-16 09:44 | P.PN ---
Subjective Progress Note Date: 10/16/20 Principal diagnosis: New Onset ascites Patient is seen and examined lying in bed. She states abdominal pain and distention have improved status post paracentesis. Liver serologies ordered, CEA with mild elevation of 20.9. AFP <2. Hepatitis panel negative 3 for A, B, and C. Today's labs are still pending. Patient denies abdominal pain, nausea, or vomiting. States she has eating small amounts of food. States she still has decreased appetite. Objective - Vital Signs Vital signs: Vital Signs Temp 97.4 F L 10/16/20 08:44 Pulse 64 10/16/20 08:44 Resp 18 10/16/20 08:44 BP 122/58 10/16/20 08:44 Pulse Ox 99 10/16/20 08:44 Intake & Output 10/15/20 10/16/20 10/16/20 18:59 06:59 18:59 Intake Total 490 Output Total 300 300 Balance 190 -300 Intake: Intake, IV Titration 250 Amount Albumin Human 25% 50 ml 100 In Empty Bag 1 bag @ 200 mls/hr IVPB Q15M [facility] Rx#: [id number] Potassium Chloride 20 meq 100 In Water For Injection 1 100ml.bag @ 50 mls/hr IVPB ONCE [facility] Rx#: [id number] cefTRIAXone 1 gm In 50 Sodium Chloride 0.9% 50 ml @ 100 mls/hr IVPB Q24HR [facility] Rx#:[id number] Oral 240 Output: Urine 300 300 Other: Voiding Method Toilet # Voids 250 # Bowel Movements 1 - Exam General appearance: The patient is alert, oriented, appears in no acute distress. HET: Head is normocephalic and atraumatic. Conjunctiva pink. Sclera anicteric. Neck: Supple without lymphadenopathy. Abdomen: Soft, nontender, nondistended with bowel sounds. No guarding or rigidity. Extremities: Normal skin color and turgor. No pedal edema Skin: No rashes, no jaundice Neurological: No focal deficits. Alert and oriented 3. - Labs CBC & Chem 7: 10/14/20 14:04 10/16/20 04:23 Labs: Abnormal Lab Results - Last 24 Hours (Table) 10/15/20 10/15/20 Range/Units 06:36 06:36 Iron 41 L (50-170) ug/dL TIBC 181 L (228-460) ug/dL Total Protein (PEP) 5.5 L (6.2-8.2) g/dL Carcinoembryonic Ag 20.9 H (0.0-4.9) ng/mL Microbiology - Last 24 Hours (Table) 10/15/20 10:50 Gram Stain - Preliminary Peritoneal Fluid Body Fluid Culture - Preliminary 10/15/20 10:50 Anaerobic Culture - Preliminary Peritoneal Fluid Assessment and Plan (1) Cryptogenic cirrhosis of liver Narrative/Plan: 80-year-old female presenting to the hospital due to concerns over abdominal distention and fluid overload. She has a known history of chronic kidney disease and has previous fistula placement. She denies any known history of liver disease but was recently told of possible cirrhosis on visit to the emergency department. On current presentation the patient has had 5 L of ascitic fluid removed with SAAG of 1.2 and ascitic protein less than 2.5 consistent with portal hypertension and likely cryptogenic cirrhosis from fatty liver disease. Current Visit: Yes Status: Acute Code(s): K74.69 - OTHER CIRRHOSIS OF LIVER SNOMED Code(s): 41241344 (2) Abdominal pain Current Visit: Yes Status: Acute Code(s): R10.9 - UNSPECIFIED ABDOMINAL PAIN SNOMED Code(s): 31390596 (3) Ascites Current Visit: Yes Status: Acute Code(s): R18.8 - OTHER ASCITES SNOMED Code(s): 089665556 Plan: Supportive care Okay for sodium restricted diet, extensive discussion with the patient regarding need for sodium restriction for control of fluid overload Lasix 40 mg twice daily initiated by the primary team and Aldactone 50 mg initiated, nephrology service has been consulted for further management given the patient's underlying chronic kidney disease Continue aggressive electrolyte replacement AFP ordered and WNL Albumin given after paracentesis Case discussed with the patient and her daughter at length Patient may be discharged home from a gastroenterology standpoint, close outpatient follow-up within 1-2 weeks. Thank you for allowing us to participate in the care of the patient we will sign off at this time I agree with the dictator's note, documented as a scribe by Veronica Ghosh.
[2020-10-16 10:49] LABS: African American GFR (CKD) 17.5 (60.0-200.0); Anion Gap 7.3 mmol/L (4.00-12.00); BUN/Creat Ratio 9.64 Ratio (12.00-20.00); Calcium 7.2 mg/dL (8.7-10.3); Carbon Dioxide 17.7 mmol/L (21.6-31.8); Magnesium 1.5 mg/dL (1.5-2.4); Non-African American GFR(CKD) 15.1 (60.0-200.0); Potassium 3.5 mmol/L (3.5-5.5)
[2020-10-16 11:22] LABS: Liver/Kidney Microsome Antibod 1.1 UNITS (<=20)
[2020-10-16] MEDS ORDERED: POTASSIUM CHLORIDE ER 20 MEQ TAB.ER PO STA (12:17)
--- NOTE | 2020-10-16 12:24 | P.PN ---
Subjective Progress Note Date: 10/16/20 Patient is feeling well today. She does not have any complaints this morning. Lower extremity edema is improving. Objective - Vital Signs Vital signs: Vital Signs Temp 97.4 F L 10/16/20 08:44 Pulse 64 10/16/20 10:13 Resp 18 10/16/20 10:13 BP 122/58 10/16/20 08:44 Pulse Ox 99 10/16/20 08:44 Intake & Output 10/15/20 10/16/20 10/16/20 18:59 06:59 18:59 Intake Total 490 Output Total 300 300 Balance 190 -300 Intake: Intake, IV Titration 250 Amount Albumin Human 25% 50 ml 100 In Empty Bag 1 bag @ 200 mls/hr IVPB Q15M [facility] Rx#: [id number] Potassium Chloride 20 meq 100 In Water For Injection 1 100ml.bag @ 50 mls/hr IVPB ONCE [facility] Rx#: [id number] cefTRIAXone 1 gm In 50 Sodium Chloride 0.9% 50 ml @ 100 mls/hr IVPB Q24HR [facility] Rx#:[id number] Oral 240 Output: Urine 300 300 Other: Voiding Method Toilet Toilet # Voids 250 # Bowel Movements 1 - Exam General: The patient is awake and alert, in no distress Eye: there is normal conjunctiva bilaterally. Neck: The neck is supple, there is no JVD. Cardiovascular: Normal S1-S2, no S3-S4, no murmurs. Respiratory: Lungs clear to auscultation bilaterally Gastrointestinal: Abdomen is soft, nontender Musculoskeletal: There is +1 pedal edema. Neurological:. Speech is normal. Skin: Skin is warm and dry - Labs CBC & Chem 7: 10/14/20 14:04 10/16/20 04:23 Labs: Abnormal Lab Results - Last 24 Hours (Table) 10/15/20 10/15/20 10/16/20 Range/Units 06:36 06:36 04:23 Chloride 114 H (96-109) mmol/L Carbon Dioxide 17.7 L (21.6-31.8) mmol/L Creatinine 2.8 H (0.6-1.5) mg/dL Est GFR (CKD-EPI)AfAm 17.5 L (60.0-200.0) Est GFR (CKD-EPI)NonAf 15.1 L (60.0-200.0) BUN/Creatinine Ratio 9.64 L (12.00-20.00) Ratio Glucose 132 H (70-110) mg/dL Calcium 7.2 L (8.7-10.3) mg/dL Iron 41 L (50-170) ug/dL TIBC 181 L (228-460) ug/dL Total Protein (PEP) 5.5 L (6.2-8.2) g/dL Carcinoembryonic Ag 20.9 H (0.0-4.9) ng/mL Microbiology - Last 24 Hours (Table) 10/15/20 10:50 Gram Stain - Preliminary Peritoneal Fluid Body Fluid Culture - Preliminary 10/15/20 10:50 Anaerobic Culture - Preliminary Peritoneal Fluid Assessment and Plan Assessment: This is a 80-year-old female with past medical history noted below who presented to the emergency room with worsening abdominal distention and discomfort. Patient was evaluated in the ER and admitted to the hospital for further management of her medical problems noted below. 1. Liver cirrhosis, exact etiology unclear. May be secondary to GEORGES. Patient denies significant alcohol use. Viral hepatitis panel negative. GI consulted for further evaluation. 2. Large ascites, status post 5 L paracentesis. No evidence of SBP. Patient was given albumin after the procedure. I started patient on diuretics with Lasix 40 mg twice daily and spironolactone 50 mg daily 3. Stage IIIB chronic kidney disease, creatinine appears to be around baseline. She was seen and evaluated by nephrology, appreciate recommendations. 4. Acute metabolic acidosis secondary to worsening kidney failure. Patient was started on bicarb drip for 24 hours. We will discontinue today and continue sodium bicarbonate orally 4 times a day. 5. Complicated UTI, started on IV ceftriaxone awaiting urine culture. Bladder scan showed no significant residuals 6. Essential hypertension: Blood pressure within acceptable range. Home dose of Coreg decreased to avoid hypotension 7. DVT prophylaxis with subcu heparin 8. CODE STATUS: Patient is full code. Discussed with her and her daughter at bedside who is her DURABLE POWER OF HOME SUPERVISOR
[2020-10-16] MEDS: DEXTROSE 5% IN WATER 1,000 ML with SODIUM BICARB (1 MEQ/ML) 150 ML IV SCH (12:37)
[2020-10-16] MEDS: MAGNESIUM SULFATE-D5W PMX 1 GM in DEXTROSE/WATER 1 100ML.BAG IVPB SCH ×2 (13:11→14:47)
[2020-10-16 13:41] LABS: Albumin 2.34 g/dL (3.80-4.90)
--- NOTE | 2020-10-16 13:55 | PN ---
PROGRESS NOTE Patient is seen for followup for chronic kidney disease. She has underlying CKD stage 4. Patient was admitted to the hospital with diarrhea, severe metabolic acidosis and is currently maintained on a bicarb drip. She was found to have ascites and underlying chronic liver disease which is being worked up. PHYSICAL EXAMINATION: On examination today, patient is comfortable. She does not have any diarrhea. Overall she is feeling better. Blood pressure was 122/58, heart rate 64 per minute. She is afebrile. EXAMINATION OF THE HEART: S1, S2. EXAMINATION OF LUNGS: Bilateral breath sounds are heard. Abdomen is soft, nontender. Examination of lower extremities shows edema in the left lower extremity. No edema right lower extremity. MULTINEEDLE SHIRRER exam grossly intact. LABS: Labs show sodium 139, potassium 3.5, chloride 114, CO2 is 17, BUN 27, creatinine 2.8 mg/dL. ASSESSMENT: 1. 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 Currently at baseline. Patient has a left arm AV fistula. 2. Severe metabolic acidosis associated with diarrhea and underlying renal failure, maintained on IV bicarb, currently improved. 3. Ascites, status post paracentesis, being followed by GI for possible underlying chronic liver disease which is being worked up. 4. Generalized debility. PLAN: Continue with the IV bicarb for one more day. Check venous Dopplers of lower extremities as patient has edema mostly in the left leg and she does not have significant edema in the right leg. MMODL / IJN: [id number] /
--- NOTE | 2020-10-16 16:12 | CDI ---
Documentation Clarification Form Date: 10/16/2020 03:50:25 PM From: Tiffanie Angel RN, CCDS Admit Date: 10/14/2020 03:25:00 PM Patient Name: Radha Conn Visit Number: [id number] Discharge Date: ATTENTION: The Clinical Documentation Specialists (CDI) and [facility] Coding Staff appreciate your assistance in clarifying documentation. Please respond to the clarification below the line at the bottom and electronically sign. The CDI & [facility] Coding staff will review the response and follow-up if needed. Please note: Queries are made part of the Legal Health Record. If you have any questions, please contact the author of this message via ITS. Dr. Talita Ding Conflicting documentation has been found in the medical record: 10/14 H/P and subsequent progress notes: stage IIIB chronic kidney disease, baseline creatinine unknown to me. 10/15 Nephrology consult and subsequent progress notes. Chronic kidney disease, stage 4. renal function probably close to baseline Patient has a left arm AV fistula. History/Risk Factors: Renal Disease, hypertension Clinical Indicators:80-year-old female present to ED on 10/14 with complaints of abdominal pain. CT showed concern for liver cirrhosis and ascites. She has chronic kidney disease with left upper extremity fistula but not currently on hemodialysis. 10/14 Vital signs on admission: 148/69 62 18 97.6 10/14 Labs BUN 24, CR 2.81, GFR 15 Treatment: Avoid hypotension Sodium bicarb PO 650 MG PO QID In your opinion, what is the most clinically appropriate diagnosis for this patient? Stage IIIB Chronic Kidney disease Chronic Kidney disease Stage 4 Other explanation of clinical findings Unable to determine (no explanation for clinical findings) (Last Revision: November 2017) MTDD
--- NOTE | 2020-10-16 16:37 | US ---
EXAMINATION TYPE: US venous doppler duplex LE BI DATE OF EXAM: 10/16/2020 1:03 PM COMPARISON: NONE CLINICAL HISTORY: 80-year-old female with leg swelling, no history of DVT. SIDE PERFORMED: Bilateral TECHNIQUE: The lower extremity deep venous system is examined utilizing real time linear array sonog amy with graded compression, doppler sonography and color-flow sonography. FINDINGS: VESSELS IMAGED: Common Femoral Vein Deep Femoral Vein Greater Saphenous Vein * Femoral Vein Popliteal Vein Small Saphenous Vein * Proximal Calf Veins (* superficial vessels) Right Leg: Negative for DVT Left Leg: Negative for DVT IMPRESSION: No evidence for DVT within the bilateral lower extremities imaged from the groin to the upper calves.
[2020-10-16 17:45] LABS: Hepatitis B Core IgM Non-Reactive (Non-Reactive)
[2020-10-16] MEDS: PARoxetine 20 MG TAB PO SCH (20:07)
[2020-10-17 07:41] VITALS: BP 111/67; PULSE 84; RESP 15; TEMP 98
[2020-10-17] MEDS: carvediloL 6.25 MG TAB PO SCH (08:20)
[2020-10-17] MEDS: VIT A,C & E-LUTEIN-MINERALS 1 EACH TAB PO SCH (08:21)
[2020-10-17] MEDS: SPIRONOLACTONE 25 MG TAB PO SCH (08:21)
[2020-10-17] MEDS: FUROSEMIDE 40 MG TAB PO SCH (08:21)
[2020-10-17] MEDS: SODIUM BICARBONATE TAB 650 MG TAB PO SCH (08:22)
[2020-10-17 10:00] LABS: African American GFR (CKD) 16.1 (60.0-200.0); Anion Gap 7.7 mmol/L (4.00-12.00); Calcium 7.7 mg/dL (8.7-10.3); Carbon Dioxide 17.3 mmol/L (21.6-31.8); Magnesium 2.3 mg/dL (1.5-2.4); Non-African American GFR(CKD) 13.9 (60.0-200.0); Potassium 3.5 mmol/L (3.5-5.5)
--- NOTE | 2020-10-17 10:46 | P.DS ---
Providers Date of admission: 10/14/20 15:25 Expected date of discharge: 10/17/20 Attending physician: Talita Ding Consults: 10/15/20 08:35 Consult Physician Routine Consulting Provider: Ju Sharpe Consult Reason/Comments: CKD, ascites Do you want consulting provider notified?: Yes 10/15/20 09:31 Consult Physician Routine Consulting Provider: Ju Sharpe Consult Reason/Comments: Kidney failure with metabolic acidosis Do you want consulting provider notified?: Yes Primary care physician: Physician Nonstaff Hospital Course: This is a 80-year-old female with past medical history noted below who presented to the emergency room with worsening abdominal distention and discomfort. Patient was evaluated in the ER and admitted to the hospital for further management of her medical problems noted below. 1. Liver cirrhosis, exact etiology unclear. May be secondary to GEORGES. Patient denies significant alcohol use. Viral hepatitis panel negative. GI consulted for further evaluation. Follow-up in the office as directed in 2 weeks. 2. Large ascites, status post 5 L paracentesis. No evidence of SBP. Patient was given albumin after the procedure. I started patient on diuretics with Lasix 40 mg twice daily and spironolactone 50 mg daily. Counseled regarding low sodium diet. 3. Stage IV chronic kidney disease, creatinine appears to be around baseline. She was seen and evaluated by nephrology, patient has a left arm fistula. Follow-up with nephrology outpatient as directed. 4. Acute metabolic acidosis secondary to worsening kidney failure. Patient was started on bicarb drip for 24 hours. Acidosis improved. Increase home dose of sodium bicarbonate to 4 times a day. Adjust medications doses for kidney function 5. Complicated UTI, finished IV ceftriaxone course in the hospital.. Bladder scan showed no significant residuals 6. Essential hypertension: Blood pressure within acceptable range. Home dose of Coreg decreased to avoid hypotension Patient will be discharged home. She declined home health care services. Her overall prognosis is guarded. Patient Condition at Discharge: Stable Plan - Discharge Summary New Discharge Prescriptions: New Spironolactone [Aldactone] 50 mg PO DAILY #30 tab carvediloL [Coreg] 6.25 mg PO BID@0800,1200 #60 tab Furosemide [Lasix] 40 mg PO BID@0900,1600 #60 tab Sodium Bicarbonate Tab 650 mg PO QID #120 tab Allopurinol [Zyloprim] 100 mg PO DAILY #30 tab Continue Vit C/E/Zn/Coppr/Lutein/Zeaxan [Preservision Areds 2 Softgel] 1 cap PO BID Cyanocobalamin (Vitamin B-12) [Vitamin B-12] 2,500 mcg PO DAILY PARoxetine HCL [Paxil] 20 mg PO HS Cholecalciferol [Vitamin D3 (25 Mcg = 1000 Iu)] 125 mcg PO DAILY Calcitriol [Rocaltrol] 0.25 mcg PO MOWEFR Discontinued Cephalexin [Keflex] 500 mg PO TID Potassium Chloride ER [K-Dur 20] 20 meq PO DAILY Carvedilol [Coreg] 12.5 mg PO BID@0800,1200 Sodium Bicarbonate Tab 650 mg PO TID Allopurinol [Zyloprim] 200 mg PO DAILY Discharge Medication List Calcitriol [Rocaltrol] 0.25 mcg PO MOWEFR 10/14/20 [History] Cholecalciferol [Vitamin D3 (25 Mcg = 1000 Iu)] 125 mcg PO DAILY 10/14/20 [History] Cyanocobalamin (Vitamin B-12) [Vitamin B-12] 2,500 mcg PO DAILY 10/14/20 [H istory] PARoxetine HCL [Paxil] 20 mg PO HS 10/14/20 [History] Vit C/E/Zn/Coppr/Lutein/Zeaxan [Preservision Areds 2 Softgel] 1 cap PO BID 10/14/20 [History] Allopurinol [Zyloprim] 100 mg PO DAILY #30 tab 10/17/20 [Rx] Furosemide [Lasix] 40 mg PO BID@0900,1600 #60 tab 10/17/20 [Rx] Sodium Bicarbonate Tab 650 mg PO QID #120 tab 10/17/20 [Rx] Spironolactone [Aldactone] 50 mg PO DAILY #30 tab 10/17/20 [Rx] carvediloL [Coreg] 6.25 mg PO BID@0800,1200 #60 tab 10/17/20 [Rx] Follow up Appointment(s)/Referral(s): Ignacia Espino PAC [REFERRING] - 1 Week Kaye Quiroz MD [STAFF PHYSICIAN] - 2 Weeks Patient Instructions/Handouts: Cirrhosis (DC), Chronic Kidney Disease (DC), Ascites (DC) Discharge Disposition: HOME SELF-CARE
--- NOTE | 2020-10-17 15:45 | PN ---
PROGRESS NOTE Patient is seen for followup for chronic kidney disease. This morning she is comfortable. No significant complaints. Overall she states she is feeling better and patient is being discharged. PHYSICAL EXAMINATION: On examination today, blood pressure was 111/67, heart rate 84 per minute. She is afebrile. EXAMINATION OF THE HEART: S1, S2. EXAMINATION OF THE LUNGS: Bilateral breath sounds are heard. Abdomen is soft, nontender. Examination of lower extremities shows edema 2+ bilaterally. OIL AND GAS SUPERINTENDENT exam grossly intact. LABS: Labs show sodium 140, potassium 3.5, BUN 30, creatinine 3.0. CO2 is 17.3. ASSESSMENT: 1. Chronic kidney disease NKF stage 4 currently with left arm AV fistula. No indication for dialysis at this point. 2. Metabolic acidosis, maintained on oral sodium bicarb. 3. Liver cirrhosis, etiology unclear, possibly related to GEORGES. GI on consult. 4. Ascites, status post paracentesis with removal of 5 L, status post albumin. 5. Metabolic acidosis, multifactorial, mostly from renal failure, maintained on oral sodium bicarb and status post bicarb drip. 6. Generalized debility. PLAN: Patient can be discharged. She will follow up as outpatient for CKD in [place]. The patient's daughter states that they are changing physicians to all physicians at [place] including Nephrology. MMODL / IJN: [id number] /
[2020-10-17 15:56] LABS: Ceruloplasmin 20.6 mg/dL (20.0-60.0)
== END 2020-10-17 12:30 | disposition home or self-care (01) | DRG 433 ==
LOC: EC 13:16 → 5NMEDONC 15:25
PROVIDERS: ADMIT Internal Medicine; ATTEND Internal Medicine
PROC: 0W9G3ZZ Drainage of Peritoneal Cavity, Percutaneous Approach (ICD-10-PCS; principal; 2020-10-14)
DX: K74.69 Other cirrhosis of liver (principal); N18.4 Chronic kidney disease, stage 4 (severe); R18.8 Other ascites; E87.2 Acidosis; K76.6 Portal hypertension; N39.0 Urinary tract infection, site not specified; K75.81 Nonalcoholic steatohepatitis (NASH); I12.9 Hypertensive chronic kidney disease with stage 1 through stage 4 chronic kidney disease, or unspecified chronic kidney disease; Z90.710 Acquired absence of both cervix and uterus; E87.6 Hypokalemia; E88.09 Other disorders of plasma-protein metabolism, not elsewhere classified; I95.9 Hypotension, unspecified; I77.0 Arteriovenous fistula, acquired
CPT/HCPCS: 36415; 49083; 76705; 80048; 80053; 80074; 81001; 82042; 82103; 82105; 82140; 82150; 82378; 82390; 82803; 82945; 83516; 83540; 83550; 83615; 83690; 83735; 84157; 84165; 85025; 85610; 85730; 86038; 86376; 87070; 87075; 87205; 87324; 87635; 88108; 88305; 89050; 93970; 99285

== ENCOUNTER 2020-11-08 10:39 | Inpatient (IN) | payer MEDICARE, OTHER ==
[2020-11-08] MEDS ORDERED: SODIUM CHLORIDE 0.9% 1,000 ML IV STA (11:07)
--- NOTE | 2020-11-08 11:23 | ED ---
Nausea/Vomiting/Diarrhea HPI - General Chief complaint: Nausea/Vomiting/Diarrhea Stated complaint: diarrhea Time Seen by Provider: 11/08/20 10:51 Source: patient, family Mode of arrival: wheelchair Limitations: no limitations - History of Present Illness Initial comments: Patient is an 80-year-old female presenting to the emergency Department with complaints of diarrhea but steadily increasing over the past few days. Patient was recently admitted one month ago for a liver failure and ascites. She has been seeing a Dr. Quiroz. Patient's daughter is here with her now is helping with history. Patient states ever since her hospital admission she has been dealing with diarrhea but over the past 3 days she has been feeling weaker, has been incontinent to diarrhea. She has not had an appetite, she feels intermittent nausea but no vomiting. No fevers or chills. She denies any pain anywhere including no chest pain or shortness of breath. No abdominal pain. Patient recently had a tooth pulled 3 days ago and then 2 days ago was started on amoxicillin. Patient feels like the antibiotic made things worse. Patient does have follow-up with Dr. Curran's office and patient has remained stable. Patient has no further complaints at this time. Upon arrival to the ER, her vital signs are stable. - Related Data Home Medications Medication Instructions Recorded Confirmed Calcitriol [Rocaltrol] 0.25 mcg PO MOWEFR 10/14/20 11/08/20 Cholecalciferol [Vitamin D3 (25 125 mcg PO DAILY 10/14/20 11/08/20 Mcg = 1000 Iu)] Cyanocobalamin (Vitamin B-12) 2,500 mcg PO DAILY 10/14/20 11/08/20 [Vitamin B-12] PARoxetine HCL [Paxil] 20 mg PO HS 10/14/20 11/08/20 Vit C/E/Zn/Coppr/Lutein/Zeaxan 1 cap PO BID 10/14/20 11/08/20 [Preservision Areds 2 Softgel] Amoxicillin 500 mg PO Q8H 11/08/20 11/08/20 Furosemide [Lasix] 40 mg PO DAILY 11/08/20 11/08/20 Potassium Chloride [Klor-Con 20] 20 meq PO DAILY 11/08/20 11/08/20 Sodium Bicarbonate Tab 1,300 mg PO QID 11/08/20 11/08/20 Previous Rx's Medication Instructions Recorded Allopurinol [Zyloprim] 100 mg PO DAILY #30 tab 10/17/20 Allergies Allergy/AdvReac Type Severity Reaction Status Date / Time klor-con packet AdvReac "gerard Uncoded 11/08/20 14:15 mouth" Review of Systems ROS Statement: Those systems with pertinent positive or pertinent negative responses have been documented in the HPI. ROS Other: All systems not noted in ROS Statement are negative. 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 Patient is nontoxic and in no acute distress. HEAD: Atraumatic, normocephalic. EYES: Pupils equal round and reactive to light, extraocular movements intact, sclera anicteric, conjunctiva are normal. Eyelids were unremarkable. ENT: TMs normal, nares patent, oropharynx clear without exudates. Moist mucous membranes. NECK: Normal range of motion, supple without lymphadenopathy or JVD. LUNGS: Unlabored respirations. Breath sounds clear to auscultation bilaterally and equal. No wheezes rales or rhonchi. HEART: Regular rate and rhythm without murmurs, rubs or gallops. ABDOMEN: Soft, nontender, normoactive bowel sounds. No guarding, no rebound. No masses appreciated. : Deferred MUSCULOSKELETAL: Normal extremities with adequate strength and normal range of motion, no pitting or edema. No clubbing or cyanosis. NEUROLOGICAL: Patient is alert and oriented x 3. Motor and sensory are also intact. Cranial nerves II through XII grossly intact. Symmetrical smile. Normal speech, unsteady gait, very weak to stand on her own. PSYCH: Normal mood, normal affect. SKIN: Warm, Dry, normal turgor, no rashes or lesions noted. Limitations: no limitations Course Vital Signs 11/08/20 11/08/20 10:40 11:57 Temperature 97.3 F L Pulse Rate 70 94 Respiratory 18 18 Rate Blood Pressure 95/53 105/58 O2 Sat by Pulse 100 100 Oximetry Medical Decision Making - Medical Decision Making Patient is an 80-year-old female here with complaints of weakness, increase in diarrhea over the past few days. Shes had diarrhea for the past month. She was recently started on amoxicillin 3 days ago secondary to recent dental procedure. She denies any pain today. She is slightly hypotensive upon arrival, no other findings on exam. Labs show white count 12.6, hemoglobin stable 11.3. Creatinine seems to be elevated from baseline at 3.30, BUN is 62, GFR is 12. Sodium and potassium are slightly lower, carbon dioxide is low at 14. Troponin is normal. Patient's first EKG shows A. fib, we did repeat this 30 minutes later which showed sinus rhythm. She denies any chest pain today. We did order a urine sample as well as C. diff forever these are still pending. Patient will be admitted for generalized weakness, dehydration, worsening kidney disease, diarrhea, and possible new onset A.Fib. Patient accepted by Dr. Nuñez, with consult to Dr. Sharpe and cardiology. Patient is in agreement with this plan of care. Case discussed with Dr. Salazar. - Lab Data Result diagrams: 11/08/20 11:35 11/08/20 11:35 Lab Results 11/08/20 11/08/20 11/08/20 Range/Units 11:35 11:35 11:35 WBC 12.6 H (3.8-10.6) k/uL RBC 3.40 L (3.80-5.40) m/uL Hgb 11.3 L (11.4-16.0) gm/dL Hct 35.6 (34.0-46.0) % MCV 104.6 H (80.0-100.0) fL MCH 33.3 (25.0-35.0) pg MCHC 31.8 (31.0-37.0) g/dL RDW 13.7 (11.5-15.5) % Plt Count 174 (150-450) k/uL MPV 7.6 Neutrophils % 84 % Lymphocytes % 6 % Monocytes % 8 % Eosinophils % 1 % Basophils % 0 % Neutrophils # 10.6 H (1.3-7.7) k/uL Lymphocytes # 0.7 L (1.0-4.8) k/uL Monocytes # 1.0 (0-1.0) k/uL Eosinophils # 0.1 (0-0.7) k/uL Basophils # 0.0 (0-0.2) k/uL Hypochromasia Moderate Macrocytosis Slight PT 15.7 H (9.0-12.0) sec INR 1.6 H (<1.2) APTT 27.1 (22.0-30.0) sec Sodium 134 L (137-145) mmol/L Potassium 3.2 L (3.5-5.1) mmol/L Chloride 109 H (98-107) mmol/L Carbon Dioxide 14 L (22-30) mmol/L Anion Gap 11 mmol/L BUN 62 H (7-17) mg/dL Creatinine 3.30 H (0.52-1.04) mg/dL Est GFR (CKD-EPI)AfAm 14 (>60 ml/min/1.73 sqM) Est GFR (CKD-EPI)NonAf 12 (>60 ml/min/1.73 sqM) Glucose 114 H (74-99) mg/dL Plasma Lactic Acid Gregory (0.7-2.0) mmol/L Calcium 7.7 L (8.4-10.2) mg/dL Magnesium 1.9 (1.6-2.3) mg/dL Total Bilirubin 0.9 (0.2-1.3) mg/dL AST 18 (14-36) U/L ALT 8 (4-34) U/L Alkaline Phosphatase 201 H (38-126) U/L Troponin I (0.000-0.034) ng/mL Total Protein 6.2 L (6.3-8.2) g/dL Albumin 2.4 L (3.5-5.0) g/dL 11/08/20 11/08/20 Range/Units 11:35 11:35 WBC (3.8-10.6) k/uL RBC (3.80-5.40) m/uL Hgb (11.4-16.0) gm/dL Hct (34.0-46.0) % MCV (80.0-100.0) fL MCH (25.0-35.0) pg MCHC (31.0-37.0) g/dL RDW (11.5-15.5) % Plt Count (150-450) k/uL MPV Neutrophils % % Lymphocytes % % Monocytes % % Eosinophils % % Basophils % % Neutrophils # (1.3-7.7) k/uL Lymphocytes # (1.0-4.8) k/uL Monocytes # (0-1.0) k/uL Eosinophils # (0-0.7) k/uL Basophils # (0-0.2) k/uL Hypochromasia Macrocytosis PT (9.0-12.0) sec INR (<1.2) APTT (22.0-30.0) sec Sodium (137-145) mmol/L Potassium (3.5-5.1) mmol/L Chloride (98-107) mmol/L Carbon Dioxide (22-30) mmol/L Anion Gap mmol/L BUN (7-17) mg/dL Creatinine (0.52-1.04) mg/dL Est GFR (CKD-EPI)AfAm (>60 ml/min/1.73 sqM) Est GFR (CKD-EPI)NonAf (>60 ml/min/1.73 sqM) Glucose (74-99) mg/dL Plasma Lactic Acid Gregory 1.3 (0.7-2.0) mmol/L Calcium (8.4-10.2) mg/dL Magnesium (1.6-2.3) mg/dL Total Bilirubin (0.2-1.3) mg/dL AST (14-36) U/L ALT (4-34) U/L Alkaline Phosphatase (38-126) U/L Troponin I <0.012 (0.000-0.034) ng/mL Total Protein (6.3-8.2) g/dL Albumin (3.5-5.0) g/dL - EKG Data EKG Comments: Initial EKG taken at 1127, shows A. fib, left axis deviation, inferior infarct age undetermined, no signs of any acute process. Ventricular rate 93, QRS duration 114, QT 374. He has no previous to compare to. This was reviewed by Dr. Salazar. Second EKG taken at 1208 shows sinus rhythm with occasional PVCs. Left axis deviation, inferior infarct age undetermined. Again there is no signs of acute ischemia. Ventricular rate 94, DC intervals 206, QT 398. Disposition Clinical Impression: Dehydration, Weakness, CKD (chronic kidney disease), Diarrhea, A-fib Disposition: ADMITTED IP TO THIS HOSP Condition: Stable Referrals: Nonstaff,Physician [Primary Care Provider] - 1-2 days Decision Date: 11/08/20 Decision Time: 14:21
[2020-11-08 12:03] LABS: Basophils % (A) 0 %; Eosinophils # (A) 0.1 k/uL (0-0.7); Eosinophils % (A) 1 %; HCT 35.6 % (34.0-46.0); HGB 11.3 gm/dL (11.4-16.0); Hypochromasia Moderate; Lymphocytes # (A) 0.7 k/uL (1.0-4.8); Lymphocytes % (A) 6 %; MCH 33.3 pg (25.0-35.0); MCHC 31.8 g/dL (31.0-37.0); MCV 104.6 fL (80.0-100.0); Macrocytosis Slight; Mean Platelet Volume 7.6; Monocytes % (A) 8 %; Neutrophils # (A) 10.6 k/uL (1.3-7.7); Neutrophils % (A) 84 %; Platelet Count 174 k/uL (150-450); RDW 13.7 % (11.5-15.5); WBC 12.6 k/uL (3.8-10.6)
[2020-11-08 12:04] LABS: Albumin 2.4 g/dL (3.5-5.0); Calcium 7.7 mg/dL (8.4-10.2); Magnesium 1.9 mg/dL (1.6-2.3); Potassium 3.2 mmol/L (3.5-5.1); Total Bilirubin 0.9 mg/dL (0.2-1.3); Total Protein 6.2 g/dL (6.3-8.2)
[2020-11-08 12:10] LABS: INR 1.6 (<1.2); Partial Thromboplastin Time 27.1 sec (22.0-30.0); Prothrombin Time 15.7 sec (9.0-12.0)
--- NOTE | 2020-11-08 12:15 | XR ---
EXAMINATION TYPE: XR chest 2V DATE OF EXAM: 11/08/2020 COMPARISON: NONE HISTORY: Hypotension and incontinence. TECHNIQUE: Frontal and lateral views of the chest are obtained. FINDINGS: There are small to tiny bilateral pleural effusions on lateral view. No suspicious focal a irspace opacity or pneumothorax. The cardiac silhouette size is within normal limits with atheroscler otic thoracic aorta. Surgical clips left axilla. Osseous structures somewhat demineralized with multi level spurring in the spine. IMPRESSION: Small to tiny bilateral pleural effusions. No acute infiltrate.
[2020-11-08] MEDS ORDERED: NALOXONE 0.4 MG/ML 1 ML VIAL IV PRN (14:01)
[2020-11-08] MEDS ORDERED: ACETAMINOPHEN TAB 325 MG TAB PO PRN (14:11)
[2020-11-08] MEDS ORDERED: ONDANSETRON 4 MG/2 ML VIAL IVP PRN (14:11)
[2020-11-08] MEDS ORDERED: POTASSIUM CHLORIDE ER 20 MEQ TAB.ER PO STA (18:58)
[2020-11-08] MEDS: SODIUM BICARBONATE TAB 650 MG TAB PO SCH ×2 (19:20→21:15)
[2020-11-08] MEDS: PARoxetine 20 MG TAB PO SCH (20:35)
[2020-11-08] MEDS: VIT A,C & E-LUTEIN-MINERALS 1 EACH TAB PO SCH (21:15)
[2020-11-08] MEDS: AMOXICILLIN 500 MG CAP PO SCH ×2 (21:15→21:47)
[2020-11-08] MEDS: SODIUM CHLORIDE 0.9% 1,000 ML IV SCH (21:16)
[2020-11-09] MEDS ORDERED: CYANOCOBALAMIN 500 MCG TAB PO SCH (09:00)
--- NOTE | 2020-11-09 09:18 | P.HPIM ---
History of Present Illness H&P Date: 11/08/20 Chief Complaint: Nausea/vomiting/diarrhea 80-year-old female presenting to the emergency Department with complaints of diarrhea but steadily increasing over the past few days. Patient was recently admitted one month ago for a liver failure and ascites. She has been seeing a Dr. Quiroz. Patient's daughter is here with her now is helping with history. Patient states ever since her hospital admission she has been dealing with diarrhea but over the past 3 days she has been feeling weaker, has been incontinent to diarrhea. She has not had an appetite, she feels intermittent nausea but no vomiting. No fevers or chills. She denies any pain anywhere including no chest pain or shortness of breath. No abdominal pain. Patient recently had a tooth pulled 3 days ago and then 2 days ago was started on amoxicillin. Patient feels like the antibiotic made things worse. Patient does have follow-up with Dr. Curran's office and patient has remained stable. Patient has no further complaints at this time. Upon arrival to the ER, her vital signs are stable. Workup in ED including an EKG revealed A. fib, left axis deviation, inferior infarct age undetermined with ventricular rate of 93; repeat EKG revealed normal sinus rhythm with occasional PVCs Blood work with chemical profile sodium 134, potassium 3.2, BUN of 60 to come a creatinine of 3.30; CBC with white blood count of 12.6 with normal lactic acid level, PT/INR of 15.7/1.6 Patient is admitted to the hospital for acute renal injury/dehydration and paroxysmal atrial fibrillation Review of Systems REVIEW OF SYSTEMS: CONSTITUTIONAL: No fever, no malaise, no fatigue. HEENT: No recent visual problems or hearing problems. Denied any sore throat. CARDIOVASCULAR: No chest pain, orthopnea, PND, no palpitations, no syncope. PULMONARY: No shortness of breath, no cough, no hemoptysis. GASTROINTESTINAL: Positive for nausea/vomiting/diarrhea, no abdominal pain. NEUROLOGICAL: No headaches, no weakness, no numbness. HEMATOLOGICAL: Denies any bleeding or petechiae. GENITOURINARY: Denies any burning micturition, frequency, or urgency. MUSCULOSKELETAL/RHEUMATOLOGICAL: Denies any joint pain, swelling, or any muscle pain. ENDOCRINE: Denies any polyuria or polydipsia. The rest of the 14-point review of systems is negative. 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, cataracts, let arm fistula Past Psychological History: No Psychological Hx Reported Smoking Status: Never smoker Past Alcohol Use History: None Reported Past Drug Use History: None Reported Medications and Allergies Home Medications Medication Instructions Recorded Confirmed Type Calcitriol [Rocaltrol] 0.25 mcg PO MOWEFR 10/14/20 11/08/20 History Cholecalciferol [Vitamin D3 (25 125 mcg PO DAILY 10/14/20 11/08/20 History Mcg = 1000 Iu)] Cyanocobalamin (Vitamin B-12) 2,500 mcg PO DAILY 10/14/20 11/08/20 History [Vitamin B-12] PARoxetine HCL [Paxil] 20 mg PO HS 10/14/20 11/08/20 History Vit C/E/Zn/Coppr/Lutein/Zeaxan 1 cap PO BID 10/14/20 11/08/20 History [Preservision Areds 2 Softgel] Allopurinol [Zyloprim] 100 mg PO DAILY #30 tab 10/17/20 11/08/20 Rx Amoxicillin 500 mg PO Q8H 11/08/20 11/08/20 History Furosemide [Lasix] 40 mg PO DAILY 11/08/20 11/08/20 History Potassium Chloride [Klor-Con 20] 20 meq PO DAILY 11/08/20 11/08/20 History Sodium Bicarbonate Tab 1,300 mg PO QID 11/08/20 11/08/20 History Allergies Allergy/AdvReac Type Severity Reaction Status Date / Time klor-con packet AdvReac "gerard Uncoded 11/08/20 14:15 mouth" Physical Exam Vitals: Vital Signs Temp Pulse Resp BP Pulse Ox 11/08/20 11:57 94 18 105/58 100 11/08/20 10:40 97.3 F L 70 18 95/53 100 Intake and Output 11/08/20 11/08/20 11/08/20 06:59 14:59 22:59 Other: Weight 64.41 kg - Constitutional General appearance: Present: average body habitus, cooperative, no acute distress - EENT Eyes: Present: anicteric sclerae, EOMI, PERRLA, normal appearance ENT: Present: hearing grossly normal, normal oropharynx Ears: bilateral: normal - Neck Neck: Present: normal ROM. Absent: lymphadenopathy, rigidity, thyromegaly Carotids: negative: bruit present Thyroid: bilateral: normal size, negative: enlarged, nodule - Respiratory Respiratory: bilateral: CTA, negative: rales, rhonchi, wheezing - Cardiovascular Rhythm: regular Heart sounds: normal: S1, S2 Abnormal Heart Sounds: Absent: systolic murmur, diastolic murmur - Gastrointestinal General gastrointestinal: Present: normal bowel sounds, soft. Absent: distended, organomegaly, tenderness - Genitourinary Genitourinary Comment(s): deferred - Integumentary Integumentary: Present: normal turgor. Absent: jaundiced, rash, ulcer - Neurologic Neurologic: Present: CNII-XII intact. Absent: focal deficits - Musculoskeletal Musculoskeletal: Present: gait normal, strength equal bilaterally - Psychiatric Psychiatric: Present: A&O x's 3, appropriate affect, intact judgment & insight Results CBC & Chem 7: 11/08/20 11:35 11/08/20 11:35 Labs: Abnormal Lab Results - Last 24 Hours (Table) 11/08/20 11/08/20 11/08/20 Range/Units 11:35 11:35 11:35 WBC 12.6 H (3.8-10.6) k/uL RBC 3.40 L (3.80-5.40) m/uL Hgb 11.3 L (11.4-16.0) gm/dL MCV 104.6 H (80.0-100.0) fL Neutrophils # 10.6 H (1.3-7.7) k/uL Lymphocytes # 0.7 L (1.0-4.8) k/uL PT 15.7 H (9.0-12.0) sec INR 1.6 H (<1.2) Sodium 134 L (137-145) mmol/L Potassium 3.2 L (3.5-5.1) mmol/L Chloride 109 H (98-107) mmol/L Carbon Dioxide 14 L (22-30) mmol/L BUN 62 H (7-17) mg/dL Creatinine 3.30 H (0.52-1.04) mg/dL Glucose 114 H (74-99) mg/dL Calcium 7.7 L (8.4-10.2) mg/dL Alkaline Phosphatase 201 H (38-126) U/L Total Protein 6.2 L (6.3-8.2) g/dL Albumin 2.4 L (3.5-5.0) g/dL Assessment and Plan Assessment: 1. Acute on chronic kidney disease - Patient is started on IV fluids in form of D5 half-normal saline at a rate of 75 mL an hour; we will monitor strict ALLAN's, daily weights, renal function and electrolytes; avoid nephrotoxic agents; continue with sodium bicarbonate 1300 mg by mouth QID - Nephrology is consulted; recommendations are pending 2. Intractable nausea/vomiting/diarrhea; Possibly antibiotic induced - Patient is started on IV fluids; continue to monitor electrolytes and renal function; symptomatic treatment of nausea and vomiting 3. Hypotension/dehydration; secondary to #2; IV fluid hydration as indicated above 4. Leukocytosis; possibly reactive; patient is afebrile with normal lactic acid level; we will monitor CBC and initiates sepsis workup if white blood count continues to trend up 5. Paroxysmal atrial fibrillation; new onset; patient is currently in normal sinus rhythm; cardiology is consulted and await recommendations 6. Vitamin B12 deficiency; continue with oral supplement thousand MCG daily 7. Vitamin D deficiency; vitamin D3 125 MCG daily DVT prophylaxis SCDs CODE STATUS; full code
[2020-11-09 09:43] LABS: Calcium 7.4 mg/dL (8.4-10.2); Potassium 3.2 mmol/L (3.5-5.1)
[2020-11-09] MEDS: CHOLECALCIFEROL 25 MCG (1000 IU) TABLET PO SCH (09:52)
[2020-11-09] MEDS: PARoxetine 20 MG TAB PO SCH (09:52)
[2020-11-09] MEDS: AMOXICILLIN 500 MG CAP PO SCH (09:52)
[2020-11-09] MEDS: VIT A,C & E-LUTEIN-MINERALS 1 EACH TAB PO SCH ×2 (09:53→21:32)
[2020-11-09] MEDS: allopurinoL 100 MG TAB PO SCH (09:53)
[2020-11-09] MEDS: SODIUM BICARBONATE TAB 650 MG TAB PO SCH ×4 (09:53→20:54)
[2020-11-09] MEDS: DEXTROSE 5% IN WATER 1,000 ML with SODIUM BICARB (1 MEQ/ML) 150 ML IV SCH (10:43)
[2020-11-09] MEDS: SODIUM CHLORIDE 0.9% 1,000 ML IV SCH (10:44)
[2020-11-09] MEDS ORDERED: POTASSIUM CHLORIDE ER 20 MEQ TAB.ER PO STA (12:17)
[2020-11-09 12:44] LABS: Appearance,Urine Cloudy (Clear); Bacteria,Urine Many /hpf; Bilirubin,Urine Negative (Negative); Blood,Urine Small (Negative); Color,Urine Yellow; Glucose,Urine (UA) Negative (Negative); Ketones,Urine Negative (Negative); Leukocyte Esterase,Urine Large (Negative); Mucus,Urine Rare /hpf; Nitrite,Urine Negative (Negative); PH, Urine 5.5 (5.0-8.0); Protein,Urine 1+ (Negative); RBC,Urine 28 /hpf (0-5); Squamous Epithelial Cell,Urine 21 /hpf (0-4); Urobilinogen,Urine <2.0 mg/dL (<2.0); WBC,Urine 16 /hpf (0-5)
--- NOTE | 2020-11-09 13:08 | P.CRDCN ---
History of Present Illness Consult date: 11/09/20 History of present illness: HISTORY OF PRESENT ILLNESS: This is a 80-year-old female with a past medical history significant for hypertension, hyperlipidemia, and chronic kidney disease. Patient does not follow with a threat monitoring analyst. We have been asked to see the patient in consultation for atrial fibrillation. Patient examined at the bedside. Patient states she came to the emergency room secondary to diarrhea. Patient denies chest pain or pressure. She denies palpitations. She denies shortness of breath. EKG completed in the emergency room was interpreted as atrophic relation. Multiple EKGs obtained and reviewed this morning with Dr. Cruz. Rhythm appears to be multifocal atrial tachycardia rather than atrial fibrillation. EKG reveals multifocal atrial tachycardia Chest xray small bilateral pleural effusions. Laboratory data: WBC 12.6. Hemoglobin 11.3. Platelet count 174. Sodium 137. Potassium 3.2. BUN 58. Creatinine 3.22. Troponin negative 1. Current home cardiac medications include Lasix 40 mg daily REVIEW OF SYSTEMS: At the time of my exam: CONSTITUTIONAL: Denies fever or chills. HEENT: Denies blurred vision, vision changes, or eye pain. Denies hemoptysis CARDIOVASCULAR: Denies chest pain. Denies orthopnea. Denies PND. Denies palpitations RESPIRATORY: Denies shortness of breath. GASTROINTESTINAL: Denies abdominal pain. Denies nausea or vomiting. HEMATOLOGIC: Denies bleeding disorders. GENITOURINARY: Denies any blood in urine. SKIN: Denies pruitis. Denies rash. PHYSICAL EXAM: VITAL SIGNS: Reviewed. GENERAL: Well-developed in no acute distress. HEENT: Head is normocephalic. Pupils are equal, round. Sclerae anicteric. Mucous membranes of the mouth are moist. Neck supple. No JVD or thyromegaly LUNGS: Respirations even and unlabored. Lungs essentially clear to auscultation bilaterally. HEART: Irregular rate and rhythm. S1 and S2 heard. ABDOMEN: Soft. Nondistended. Nontender. EXTREMITIES: Normal range of motion. No clubbing or cyanosis. Peripheral pulses intact. No lower extremity edema NEUROLOGIC: Awake and alert. Oriented x 3. ASSESSMENT: Nausea, vomiting, diarrhea Multifocal atrial tachycardia or wandering atrial pacemaker, do not suspect atrial fibrillation at this time Hypertension Hyperlipidemia Chronic kidney disease Hypokalemia PLAN: Obtain 2-D echo to assess cardiac structure and function Begin verapamil 40 mg twice a day Replace potassium Continue to monitor monitoring Repeat EKG tomorrow Further recommendations pending patient's course Nurse practitioner note has been reviewed by physician. Signing provider agrees with the documented findings, assessment, and plan of care. 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, cataracts, let arm fistula Past Psychological History: No Psychological Hx Reported Smoking Status: Never smoker Past Alcohol Use History: None Reported Past Drug Use History: None Reported Medications and Allergies Home Medications Medication Instructions Recorded Confirmed Type Calcitriol [Rocaltrol] 0.25 mcg PO MOWEFR 10/14/20 11/08/20 History Cholecalciferol [Vitamin D3 (25 125 mcg PO DAILY 10/14/20 11/08/20 History Mcg = 1000 Iu)] Cyanocobalamin (Vitamin B-12) 2,500 mcg PO DAILY 10/14/20 11/08/20 History [Vitamin B-12] PARoxetine HCL [Paxil] 20 mg PO HS 10/14/20 11/08/20 History Vit C/E/Zn/Coppr/Lutein/Zeaxan 1 cap PO BID 10/14/20 11/08/20 History [Preservision Areds 2 Softgel] Allopurinol [Zyloprim] 100 mg PO DAILY #30 tab 10/17/20 11/08/20 Rx Amoxicillin 500 mg PO Q8H 11/08/20 11/08/20 History Furosemide [Lasix] 40 mg PO DAILY 11/08/20 11/08/20 History Potassium Chloride [Klor-Con 20] 20 meq PO DAILY 11/08/20 11/08/20 History Sodium Bicarbonate Tab 1,300 mg PO QID 11/08/20 11/08/20 History Allergies Allergy/AdvReac Type Severity Reaction Status Date / Time klor-con packet AdvReac "gerard Uncoded 11/08/20 14:15 mouth" Physical Exam Vitals: Vital Signs Temp Pulse Pulse Pulse Resp BP BP 11/09/20 11:00 97.7 F 92 16 115/59 11/09/20 08:10 18 11/09/20 08:00 90 18 114/56 11/09/20 04:34 97.6 F 100 16 124/65 11/09/20 02:14 16 11/08/20 23:45 97.4 F L 103 H 16 106/54 11/08/20 21:25 16 11/08/20 19:23 108 H 16 126/77 Pulse Ox 11/09/20 11:00 98 11/09/20 08:10 11/09/20 08:00 98 11/09/20 04:34 97 11/09/20 02:14 11/08/20 23:45 99 11/08/20 21:25 11/08/20 19:23 100 Intake and Output 11/08/20 11/09/20 11/09/20 22:59 06:59 14:59 Intake Total 222 600 118 Balance 222 600 118 Intake: Intake, IV Titration 600 Amount Sodium Chloride 0.9% 1, 600 000 ml @ 60 mls/hr IV . [id number] [facility] Rx#:[id number] Oral 222 118 Other: Voiding Method Toilet Toilet Toilet # Voids 200 1 # Bowel Movements 1 1 Weight 64.41 kg 65.1 kg Results 11/08/20 11:35 11/09/20 09:10 Comprehensive Metabolic Panel 11/09/20 Range/Units 09:10 Sodium 137 (137-145) mmol/L Potassium 3.2 L (3.5-5.1) mmol/L Chloride 116 H (98-107) mmol/L Carbon Dioxide 12 L (22-30) mmol/L BUN 58 H (7-17) mg/dL Creatinine 3.22 H (0.52-1.04) mg/dL Glucose 109 H (74-99) mg/dL Calcium 7.4 L (8.4-10.2) mg/dL Current Medications Generic Name Dose Route Start Last Admin Trade Name Freq PRN Reason Stop Dose Admin Acetaminophen 650 mg 11/08/20 14:11 Acetaminophen Tab 325 Mg Tab PO Q6HR PRN Mild Pain or Fever > 100.5 Allopurinol 100 mg 11/09/20 09:00 11/09/20 09:53 Allopurinol 100 Mg Tab PO 100 mg DAILY DURAN Administration Amoxicillin 500 mg 11/08/20 22:00 11/09/20 09:52 Amoxicillin 500 Mg Cap PO 500 mg Q8HR DURAN Administration Calcitriol 0.25 mcg 11/11/20 09:00 Calcitriol 0.25 Mcg Cap PO MOWEFR [facility] Cholecalciferol 125 mcg 11/09/20 09:00 11/09/20 09:52 Cholecalciferol 25 Mcg (1000 Iu) Tablet PO 125 mcg DAILY DURAN Administration Cyanocobalamin 1,000 mcg 11/09/20 09:00 11/09/20 09:53 Cyanocobalamin 500 Mcg Tab PO 11/09/20 23:00 1,000 mcg DAILY DURAN Administration Cyanocobalamin 2,500 mcg 11/10/20 09:00 Cyanocobalamin 500 Mcg Tab PO DAILY DURAN Famotidine 20 mg 11/09/20 12:00 Famotidine 20 Mg Tab PO DAILY DURAN Sodium Bicarbonate 150 ml/ 1,150 mls @ 75 mls/hr 11/09/20 08:15 11/09/20 10:43 Dextrose/Water IV 75 mls/hr .[id number] DURAN Administration Multivitamins/Minerals 1 each 11/08/20 21:00 11/09/20 09:53 Vit A,C & S-Huxbfj-Hwphvhzs 1 Each Tab PO 1 each BID DURAN Administration Naloxone HCl 0.2 mg 11/08/20 14:01 Naloxone 0.4 Mg/Ml 1 Ml Vial IV Q2M PRN Opioid Reversal Ondansetron HCl 4 mg 11/08/20 14:11 Ondansetron 4 Mg/2 Ml Vial IVP Q8HR PRN Nausea And Vomiting Paroxetine HCl 20 mg 11/08/20 21:00 11/09/20 09:52 Paroxetine 20 Mg Tab PO 20 mg DAILY DURAN Administration Sodium Bicarbonate 1,300 mg 11/08/20 18:00 11/09/20 09:53 Sodium Bicarbonate Tab 650 Mg Tab PO 1,300 mg QID DURAN Administration Verapamil HCl 40 mg 11/09/20 21:00 Verapamil 40 Mg Tab PO BID DURAN Intake and Output 11/08/20 11/09/20 11/09/20 22:59 06:59 14:59 Intake Total 222 600 118 Balance 222 600 118 Intake: Intake, IV Titration 600 Amount Sodium Chloride 0.9% 1, 600 000 ml @ 60 mls/hr IV . [id number] [facility] Rx#:[id number] Oral 222 118 Other: Voiding Method Toilet Toilet Toilet # Voids 200 1 # Bowel Movements 1 1 Weight 64.41 kg 65.1 kg 11/08/20 11:35 11/09/20 09:10
[2020-11-09] MEDS: FAMOTIDINE 20 MG TAB PO SCH (13:13)
--- NOTE | 2020-11-09 14:52 | CONS ---
CONSULTATION REASON FOR CONSULT: Renal failure. HISTORY OF PRESENT ILLNESS: The patient is an 80-year-old female with history of chronic kidney disease, NKF stage 4-5, with previous creatinine close to 3 mg/dL at baseline. Patient does have a left arm AV fistula. She was admitted to the hospital with complaints of nausea and vomiting. The patient states she was not able to eat much. She denied any fevers or chills. No chest pains or shortness of breath. Serum creatinine this admission was 3.3. She has been quite acidotic with CO2 at about 12-14. Blood pressure is on the lower side with systolic around 106-115. PAST MEDICAL HISTORY: Significant for CKD stage 4 to 5, recent diagnosis of chronic liver disease and ascites, a history of CKD mineral bone disorder, anemia of chronic disease. PAST SURGICAL HISTORY: Intestinal bypass surgery, cataract, left arm AV fistula. SOCIAL HISTORY: Negative for smoking, drug abuse or alcohol abuse. MEDICATIONS: Medications prior to admission included Rocaltrol, vitamin D, Paxil, zyloprim, Lasix, potassium, sodium bicarb. ALLERGIES: Include POTASSIUM TABLETS, KLOR-CON PACKETS. REVIEW OF SYSTEMS: As per HPI. Other systems negative. EXAMINATION: Patient is comfortable, awake, not in any acute distress. Blood pressure this morning was 114/56, heart rate 90 per minute, she is afebrile. Examination of the heart S1, S2. Examination of the lungs, bilateral breath sounds are heard. Decreased breath sounds at bases. Abdomen is soft, nontender. Examination of lower extremities shows no evidence of edema. FRONT END ARCHITECT exam grossly intact. LAB: Show sodium 137, potassium 3.2, chloride 116, CO2 is 12, hemoglobin 11.3 g/dL. ASSESSMENT: 1. Chronic kidney disease stage 5, baseline creatinine around 3 with an element of acute kidney injury, mostly prerenal. Add IV fluids. If the patient does not feel better she may need to start dialysis this admission. 2. Severe metabolic acidosis secondary to diarrhea and renal failure, add IV bicarb. 3. Hypokalemia secondary to decreased oral intake and GI fluid loss, being replaced. 4. 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 PLAN: Continue with oral sodium bicarb. Replace potassium. Add IV bicarb. Continue with Rocaltrol. Repeat labs in a.m. Add Pepcid versus Prevacid and if the patient has not improved over the next 1 or 2 days, she may need to start dialysis this admission. She has a left arm AV fistula which is matured. Thank you for this consultation. We will continue to follow the patient with you during her hospitalization. KSENIA / FRANDY: [id number] /
--- NOTE | 2020-11-09 15:17 | P.PN ---
Subjective Progress Note Date: 11/09/20 Principal diagnosis: Nausea, vomiting, diarrhea Paroxysmal atrial fibrillation Acute on chronic kidney disease 80-year-old female presenting to the emergency Department with complaints of diarrhea but steadily increasing over the past few days. Patient was recently admitted one month ago for a liver failure and ascites. She has been seeing a Dr. Quiroz. Patient's daughter is here with her now is helping with history. Patient states ever since her hospital admission she has been dealing with diarrhea but over the past 3 days she has been feeling weaker, has been incontinent to diarrhea. She has not had an appetite, she feels intermittent nausea but no vomiting. No fevers or chills. She denies any pain anywhere including no chest pain or shortness of breath. No abdominal pain. Patient recently had a tooth pulled 3 days ago and then 2 days ago was started on amox icillin. Patient feels like the antibiotic made things worse. Patient does have follow-up with Dr. Curran's office and patient has remained stable. Patient has no further complaints at this time. Upon arrival to the ER, her vital signs are stable. Workup in ED including an EKG revealed A. fib, left axis deviation, inferior infarct age undetermined with ventricular rate of 93; repeat EKG revealed normal sinus rhythm with occasional PVCs Blood work with chemical profile sodium 134, potassium 3.2, BUN of 60 to come a creatinine of 3.30; CBC with white blood count of 12.6 with normal lactic acid level, PT/INR of 15.7/1.6 Patient is admitted to the hospital for acute renal injury/dehydration and paroxysmal atrial fibrillation 11/09/2020 Patient is seen and evaluated sitting up in chair with daughter at bedside; continues to complain of several episodes of diarrhea; C. diff has been negative Patient has been evaluated by cardiology and EKG/rhythm strips reviewed Labs revealed WBC of 12.6, hemoglobin 11.3 and platelets of 174; B UN/creatinine of 58/3.22; troponin is negative so far Cardiology recommending 2-D echo to assess cardiac structure and function; desmond nt is started on verapamil 40 mg twice a day; we'll supplement potassium; patient will remain on environmental monitoring technician; await further recommendations from cardiology once echocardiogram is completed We will plan to consult GI for persistent diarrhea Objective - Vital Signs Vital signs: Vital Signs Temp 97.6 F 11/09/20 04:34 Pulse 90 11/09/20 08:00 Resp 18 11/09/20 08:00 BP 114/56 11/09/20 08:00 Pulse Ox 98 11/09/20 08:00 Intake & Output 11/08/20 11/09/20 11/09/20 18:59 06:59 18:59 Intake Total 822 118 Balance 822 118 Weight 64.41 kg 65.1 kg Intake: Intake, IV Titration 600 Amount Sodium Chloride 0.9% 1, 600 000 ml @ 60 mls/hr IV . [id number] [facility] Rx#:[id number] Oral 222 118 Other: Voiding Method Toilet # Voids 1 # Bowel Movements 1 - Exam - Constitutional General appearance: Present: average body habitus, cooperative, no acute distress - EENT Eyes: Present: anicteric sclerae, EOMI, PERRLA, normal appearance ENT: Present: hearing grossly normal, normal oropharynx Ears: bilateral: normal - Neck Neck: Present: normal ROM. Absent: lymphadenopathy, rigidity, thyromegaly Carotids: negative: bruit present Thyroid: bilateral: normal size, negative: enlarged, nodule - Respiratory Respiratory: bilateral: CTA, negative: rales, rhonchi, wheezing - Cardiovascular Rhythm: regular Heart sounds: normal: S1, S2 Abnormal Heart Sounds: Absent: systolic murmur, diastolic murmur - Gastrointestinal General gastrointestinal: Present: normal bowel sounds, soft. Absent: distended, organomegaly, tenderness - Genitourinary Genitourinary Comment(s): deferred - Integumentary Integumentary: Present: normal turgor. Absent: jaundiced, rash, ulcer - Neurologic Neurologic: Present: CNII-XII intact. Absent: focal deficits - Musculoskeletal Musculoskeletal: Present: gait normal, strength equal bilaterally - Psychiatric Psychiatric: Present: A&O x's 3, appropriate affect, intact judgment & insight - Labs CBC & Chem 7: 11/08/20 11:35 11/09/20 09:10 Labs: Abnormal Lab Results - Last 24 Hours (Table) 11/08/20 11/08/20 11/08/20 Range/Units 11:35 11:35 11:35 WBC 12.6 H (3.8-10.6) k/uL RBC 3.40 L (3.80-5.40) m/uL Hgb 11.3 L (11.4-16.0) gm/dL MCV 104.6 H (80.0-100.0) fL Neutrophils # 10.6 H (1.3-7.7) k/uL Lymphocytes # 0.7 L (1.0-4.8) k/uL PT 15.7 H (9.0-12.0) sec INR 1.6 H (<1.2) Sodium 134 L (137-145) mmol/L Potassium 3.2 L (3.5-5.1) mmol/L Chloride 109 H (98-107) mmol/L Carbon Dioxide 14 L (22-30) mmol/L BUN 62 H (7-17) mg/dL Creatinine 3.30 H (0.52-1.04) mg/dL Glucose 114 H (74-99) mg/dL Calcium 7.7 L (8.4-10.2) mg/dL Alkaline Phosphatase 201 H (38-126) U/L Total Protein 6.2 L (6.3-8.2) g/dL Albumin 2.4 L (3.5-5.0) g/dL 11/09/20 Range/Units 09:10 WBC (3.8-10.6) k/uL RBC (3.80-5.40) m/uL Hgb (11.4-16.0) gm/dL MCV (80.0-100.0) fL Neutrophils # (1.3-7.7) k/uL Lymphocytes # (1.0-4.8) k/uL PT (9.0-12.0) sec INR (<1.2) Sodium (137-145) mmol/L Potassium 3.2 L (3.5-5.1) mmol/L Chloride 116 H (98-107) mmol/L Carbon Dioxide 12 L (22-30) mmol/L BUN 58 H (7-17) mg/dL Creatinine 3.22 H (0.52-1.04) mg/dL Glucose 109 H (74-99) mg/dL Calcium 7.4 L (8.4-10.2) mg/dL Alkaline Phosphatase (38-126) U/L Total Protein (6.3-8.2) g/dL Albumin (3.5-5.0) g/dL Assessment and Plan Assessment: 1. Acute on chronic kidney disease - Patient is started on IV fluids in form of D5 half-normal saline at a rate of 75 mL an hour; we will monitor strict ALLAN's, daily weights, renal function and electrolytes; avoid nephrotoxic agents; continue with sodium bicarbonate 1300 mg by mouth QID - Nephrology is consulted; recommendations are pending 2. Intractable nausea/vomiting/diarrhea; Possibly antibiotic induced - Patient is started on IV fluids; continue to monitor electrolytes and renal function; symptomatic treatment of nausea and vomiting 3. Hypotension/dehydration; secondary to #2; IV fluid hydration as indicated above 4. Leukocytosis; possibly reactive; patient is afebrile with normal lactic acid level; we will monitor CBC and initiates sepsis workup if white blood count continues to trend up 5. Paroxysmal atrial fibrillation; new onset; patient is currently in normal sinus rhythm; cardiology is consulted and await recommendations 6. Vitamin B12 deficiency; continue with oral supplement thousand MCG daily 7. Vitamin D deficiency; vitamin D3 125 MCG daily DVT prophylaxis SCDs CODE STATUS; full code
[2020-11-09] MEDS ORDERED: AMOXICILLIN 500 MG CAP PO SCH (21:00)
[2020-11-09] MEDS: VERAPAMIL 40 MG TAB PO SCH (21:33)
[2020-11-10] MEDS: DEXTROSE 5% IN WATER 1,000 ML with SODIUM BICARB (1 MEQ/ML) 150 ML IV SCH ×3 (01:30→22:48)
[2020-11-10] MEDS: CHOLECALCIFEROL 25 MCG (1000 IU) TABLET PO SCH (08:31)
[2020-11-10] MEDS: SODIUM BICARBONATE TAB 650 MG TAB PO SCH ×4 (08:31→20:22)
[2020-11-10] MEDS: FAMOTIDINE 20 MG TAB PO SCH (08:31)
[2020-11-10] MEDS: allopurinoL 100 MG TAB PO SCH (08:31)
[2020-11-10] MEDS: PARoxetine 20 MG TAB PO SCH (08:31)
[2020-11-10] MEDS: CYANOCOBALAMIN 500 MCG TAB PO SCH (08:32)
--- NOTE | 2020-11-10 08:32 | ECHOF ---
Referral Reason:LV function MEASUREMENTS -------- HEIGHT: 160.0 cm WEIGHT: 64.9 kg BP: RVIDd: 3.0 cm (< 3.3) IVSd: 1.2 cm (0.6 - 1.1) LVIDd: 3.8 cm (3.9 - 5.3) LVPWd: 1.6 cm (0.6 - 1.1) IVSs: 1.3 cm LVIDs: 3.3 cm LVPWs: 1.2 cm LA Diam: 4.0 cm (2.7 - 3.8) Ao Diam: 3.4 cm (2.0 - 3.7) AV Cusp: 1.6 cm (1.5 - 2.6) FINDINGS -------- Undetermined rhythm. This was a techncally difficult study with suboptimal views, , Definity utilized for enhancement of i mages. Overall left ventricular systolic function is normal with, an EF between 55 - 60 %. The right ventricle is normal in size. The left atrial size is normal. The right atrial size is normal. 1.5MG OF DEFINITY UTLIZED: 2 OR MORE WALL SEGMENTS NOT VISUALIZED. There is mild aortic valve sclerosis. There is no evidence of aortic regurgitation. Mild mitral regurgitation is present. The tricuspid valve was not well visualized. The pulmonic valve was not well visualized. There is no pericardial effusion. CONCLUSIONS -------- 1. This was a techncally difficult study with suboptimal views, , Definity utilized for enhancement o f images. 2. Overall left ventricular systolic function is normal with, an EF between 55 - 60 %. 3. The right ventricle is normal in size. 4. The left atrial size is normal. 5. The right atrial size is normal. 6. 1.5MG OF DEFINITY UTLIZED: 2 OR MORE WALL SEGMENTS NOT VISUALIZED. 7. There is mild aortic valve sclerosis. 8. Mild mitral regurgitation is present. 9. The tricuspid valve was not well visualized. 10. The pulmonic valve was not well visualized. 11. There is no pericardial effusion. SPRING ENCASER: Beth Henderson, BRANDON
[2020-11-10] MEDS: VIT A,C & E-LUTEIN-MINERALS 1 EACH TAB PO SCH ×2 (08:33→20:33)
[2020-11-10] MEDS: VERAPAMIL 40 MG TAB PO SCH ×2 (08:33→20:33)
[2020-11-10] MEDS ORDERED: POTASSIUM CHLORIDE 20 MEQ in WATER FOR INJECTION 1 100ML.BAG IVPB STA (10:12)
--- NOTE | 2020-11-10 12:27 | P.PN ---
Subjective Progress Note Date: 11/10/20 HISTORY OF PRESENT ILLNESS: 11/09/2020 This is a 80-year-old female with a past medical history significant for hypertension, hyperlipidemia, and chronic kidney disease. Patient does not follow with a supervisor rolling room. We have been asked to see the patient in consultation for atrial fibrillation. Patient examined at the bedside. Patient states she came to the emergency room secondary to diarrhea. Patient denies chest pain or pressure. She denies palpitations. She denies shortness of breath. EKG completed in the emergency room was interpreted as atrophic relation. Multiple EKGs obtained and reviewed this morning with Dr. Cruz. Rhythm appears to be multifocal atrial tachycardia rather than atrial fibrillation. EKG reveals multifocal atrial tachycardia Chest xray small bilateral pleural effusions. Laboratory data: WBC 12.6. Hemoglobin 11.3. Platelet count 174. Sodium 137. Potassium 3.2. BUN 58. Creatinine 3.22. Troponin negative 1. Current home cardiac medications include Lasix 40 mg daily 11/10/2020 Repeat EKG this morning now appears to be atrial fibrillation. Ventricular rate is controlled. Patient denies chest pain or pressure. Denies shortness of breath. Denies palpitations. Blood pressure 100/41. She is on room air with oxygen saturations greater than 92%. Echocardiogram completed revealed ejection fraction 55-60% with mild mitral regurgitation. PHYSICAL EXAM: VITAL SIGNS: Reviewed. GENERAL: Well-developed in no acute distress. HEENT: Head is normocephalic. Pupils are equal, round. Sclerae anicteric. Mucous membranes of the mouth are moist. Neck supple. No JVD or thyromegaly LUNGS: Respirations even and unlabored. Lungs essentially clear to auscultation bilaterally. HEART: Irregular rate and rhythm. S1 and S2 heard. ABDOMEN: Soft. Nondistended. Nontender. EXTREMITIES: Normal range of motion. No clubbing or cyanosis. Peripheral pulses intact. No lower extremity edema NEUROLOGIC: Awake and alert. Oriented x 3. ASSESSMENT: Nausea, vomiting, diarrhea New-onset atrial fibrillation Hypertension Hyperlipidemia Chronic kidney disease Hypokalemia PLAN: Begin Eliquis 2.5 mg twice a day Consult case management to verify Eliquis co-pay Continue verapamil 40 mg twice a day Replace potassium Continue to monitor monitoring Further recommendations pending patient's course Nurse practitioner note has been reviewed by physician. Signing provider agrees with the documented findings, assessment, and plan of care. Objective - Vital Signs Vital signs: Vital Signs Temp 98.1 F 11/10/20 08:00 Pulse 82 11/10/20 08:00 Resp 16 11/10/20 08:00 BP 100/41 11/10/20 08:00 Pulse Ox 99 11/10/20 08:00 Intake & Output 11/09/20 11/10/20 11/10/20 18:59 06:59 18:59 Intake Total 1498 240 Output Total 200 Balance 1498 -200 240 Weight 67 kg Intake: Intake, IV Titration 600 Amount Dextrose 5% in Water 1, 600 000 ml @ 75 mls/hr IV . [id number] DURAN with Sodium Bicarb (1 Meq/ml) 150 ml Rx#:[id number] Oral 898 240 Output: Urine 200 Other: Voiding Method Toilet Toilet Toilet # Voids 3 1 0 # Bowel Movements 2 1 0 - Labs CBC & Chem 7: 11/08/20 11:35 11/09/20 09:10 Labs: Abnormal Lab Results - Last 24 Hours (Table) 11/09/20 Range/Units 12:29 Urine Appearance Cloudy H (Clear) Urine Protein 1+ H (Negative) Urine Blood Small H (Negative) Ur Leukocyte Esterase Large H (Negative) Urine RBC 28 H (0-5) /hpf Urine WBC 16 H (0-5) /hpf Urine WBC Clumps Occasional H (None) /hpf Ur Squamous Epith Cells 21 H (0-4) /hpf Urine Bacteria Many H (None) /hpf Urine Mucus Rare H (None) /hpf Microbiology - Last 24 Hours (Table) 11/09/20 12:29 Urine Culture - Preliminary Urine,Voided
--- NOTE | 2020-11-10 12:34 | PN ---
PROGRESS NOTE The patient is seen for followup for CKD stage 4 and acute kidney injury. The patient has been started on bicarb drip. Overall she states she is feeling a bit better. Her acidosis however has not improved much. Her CO2 remains at 12. Patient states she is voiding. No ongoing nausea or vomiting at this point. PHYSICAL EXAMINATION: On examination today, blood pressure was 100/41, heart rate 82 per minute. Patient is afebrile. Examination of the heart S1, S2. Examination of the lungs, bilateral breath sounds are heard. Abdomen is soft, nontender. Examination of lower extremities shows no significant edema. ORGAN T[employer]ER E[employer]RONIC exam is grossly intact. LAB: Show sodium 137, potassium 3.2, chloride 116, CO2 is 12, BUN 58, serum creatinine 3.2. ASSESSMENT: 1. Chronic kidney disease NKF stage 5 with an element of acute kidney injury most likely prerenal, not significantly improved although creatinine is down from 3.3 to 3.2 mg/dL today. 2. Severe metabolic acidosis non gap associated with renal failure, not improving with bicarb drip and I have advised the patient that she likely need to start dialysis this admission, particularly given the intractable acidosis and poor oral intake. 3. Hypokalemia being replaced. 4. Pyuria, rule out urinary tract infection. Urine culture is pending. 5. Nausea and vomiting, somewhat improved, possibly related to uremia. The patient may need to start dialysis this admission. I will discuss with her daughter as well. 6. 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 PLAN: Increase bicarb drip to 100 mL an hour. Continue with oral sodium bicarb. Possible dialysis tomorrow based on the acidosis. The patient has a left arm AV fistula which we can use. I will discuss with her daughter as well. MMODL / IJN: [id number] /
[2020-11-10] MEDS: APIXABAN 2.5 MG TABLET PO SCH ×2 (13:19→20:33)
--- NOTE | 2020-11-10 14:52 | P.PN ---
Subjective Progress Note Date: 11/10/20 Principal diagnosis: Nausea, vomiting, diarrhea Paroxysmal atrial fibrillation Acute on chronic kidney disease 80-year-old female presenting to the emergency Department with complaints of diarrhea but steadily increasing over the past few days. Patient was recently admitted one month ago for a liver failure and ascites. She has been seeing a Dr. Quiroz. Patient's daughter is here with her now is helping with history. Patient states ever since her hospital admission she has been dealing with diarrhea but over the past 3 days she has been feeling weaker, has been incontinent to diarrhea. She has not had an appetite, she feels intermittent nausea but no vomiting. No fevers or chills. She denies any pain anywhere including no chest pain or shortness of breath. No abdominal pain. Patient recently had a tooth pulled 3 days ago and then 2 days ago was started on amox icillin. Patient feels like the antibiotic made things worse. Patient does have follow-up with Dr. Curran's office and patient has remained stable. Patient has no further complaints at this time. Upon arrival to the ER, her vital signs are stable. Workup in ED including an EKG revealed A. fib, left axis deviation, inferior infarct age undetermined with ventricular rate of 93; repeat EKG revealed normal sinus rhythm with occasional PVCs Blood work with chemical profile sodium 134, potassium 3.2, BUN of 60 to come a creatinine of 3.30; CBC with white blood count of 12.6 with normal lactic acid level, PT/INR of 15.7/1.6 Patient is admitted to the hospital for acute renal injury/dehydration and paroxysmal atrial fibrillation 11/09/2020 Patient is seen and evaluated sitting up in chair with daughter at bedside; continues to complain of several episodes of diarrhea; C. diff has been negative Patient has been evaluated by cardiology and EKG/rhythm strips reviewed Labs revealed WBC of 12.6, hemoglobin 11.3 and platelets of 174; B UN/creatinine of 58/3.22; troponin is negative so far Cardiology recommending 2-D echo to assess cardiac structure and function; desmond nt is started on verapamil 40 mg twice a day; we'll supplement potassium; patient will remain on court recording monitor; await further recommendations from cardiology once echocardiogram is completed We will plan to consult GI for persistent diarrhea 11/10/2020 Patient is seen and evaluated with daughter at bedside; complains of burning and redness of time with pain while eating; continues to have episodes of diarrhea; hasn't been seen by GI service Nephrology following for 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 likely prerenal; creatinine slowly trending down at 3.2 this morning; severe metabolic acidosis due to renal failure; patient has been placed on IV bicarbonate in fusion without any improvement in metabolic acidosis; nephrology recommending possible start of dialysis; patient and family will discuss and make a decision Cardiology is on board for MAT versus new onset atrial fibrillation; EKG this morning is more consistent with atrial fibrillation with controlled ventricular rate; echocardiogram reveals an EF of 55-60% with mild mitral regurg; cardiology recommending anticoagulation with Eliquis and patient has been placed on verapamil 40 mg twice a day We will place patient on nystatin swish and swallow for oral thrush Objective - Vital Signs Vital signs: Vital Signs Temp 98.1 F 11/10/20 08:00 Pulse 64 11/10/20 12:00 Resp 16 11/10/20 14:00 BP 111/52 11/10/20 12:00 Pulse Ox 100 11/10/20 12:00 Intake & Output 11/09/20 11/10/20 11/10/20 18:59 06:59 18:59 Intake Total 1498 960 Output Total 200 Balance 1498 -200 960 Weight 67 kg Intake: Intake, IV Titration 600 Amount Dextrose 5% in Water 1, 600 000 ml @ 75 mls/hr IV . [id number] DURAN with Sodium Bicarb (1 Meq/ml) 150 ml Rx#:[id number] Oral 898 960 Output: Urine 200 Other: Voiding Method Toilet Toilet Toilet # Voids 3 1 0 # Bowel Movements 2 1 0 - Exam - Constitutional General appearance: Present: average body habitus, cooperative, no acute distress - EENT Eyes: Present: anicteric sclerae, EOMI, PERRLA, normal appearance ENT: Present: hearing grossly normal, normal oropharynx Ears: bilateral: normal - Neck Neck: Present: normal ROM. Absent: lymphadenopathy, rigidity, thyromegaly Carotids: negative: bruit present Thyroid: bilateral: normal size, negative: enlarged, nodule - Respiratory Respiratory: bilateral: CTA, negative: rales, rhonchi, wheezing - Cardiovascular Rhythm: regular Heart sounds: normal: S1, S2 Abnormal Heart Sounds: Absent: systolic murmur, diastolic murmur - Gastrointestinal General gastrointestinal: Present: normal bowel sounds, soft. Absent: distended, organomegaly, tenderness - Genitourinary Genitourinary Comment(s): deferred - Integumentary Integumentary: Present: normal turgor. Absent: jaundiced, rash, ulcer - Neurologic Neurologic: Present: CNII-XII intact. Absent: focal deficits - Musculoskeletal Musculoskeletal: Present: gait normal, strength equal bilaterally - Psychiatric Psychiatric: Present: A&O x's 3, appropriate affect, intact judgment & insight - Labs CBC & Chem 7: 11/08/20 11:35 11/09/20 09:10 Labs: Microbiology - Last 24 Hours (Table) 11/09/20 12:29 Urine Culture - Preliminary Urine,Voided Assessment and Plan Assessment: 1. Acute on chronic kidney disease - Patient is started on IV fluids in form of D5 half-normal saline at a rate of 75 mL an hour; we will monitor strict ALLAN's, daily weights, renal function and electrolytes; avoid nephrotoxic agents; continue with sodium bicarbonate 1300 mg by mouth QID - Nephrology is consulted; recommendations are pending 2. Intractable nausea/vomiting/diarrhea; Possibly antibiotic induced - Patient is started on IV fluids; continue to monitor electrolytes and renal function; symptomatic treatment of nausea and vomiting 3. Hypotension/dehydration; secondary to #2; IV fluid hydration as indicated above 4. Leukocytosis; possibly reactive; patient is afebrile with normal lactic acid level; we will monitor CBC and initiates sepsis workup if white blood count continues to trend up 5. Paroxysmal atrial fibrillation; new onset; patient is currently in normal sinus rhythm; cardiology is consulted and await recommendations 6. Vitamin B12 deficiency; continue with oral supplement thousand MCG daily 7. Vitamin D deficiency; vitamin D3 125 MCG daily DVT prophylaxis SCDs CODE STATUS; full code
--- NOTE | 2020-11-10 16:16 | CONS ---
CONSULTATION DATE OF SERVICE: 11/10/2020 REASON FOR CONSULTATION: Nausea, vomiting, diarrhea. HISTORY OF PRESENT ILLNESS: The patient is an 80-year-old pleasant white female who was admitted to the hospital when she presented with acute onset of nausea, vomiting, diarrhea for the last 2 days duration. She was recently hospitalized a month ago with new onset ascites secondary to liver cirrhosis and workup revealed cryptogenic cirrhosis of the liver. The patient was sent home on diuretics and was seen on outpatient basis 2 weeks ago. She had some teeth work done and took some antibiotics 5 days ago after that he started developing this abdominal discomfort associated with nausea, vomiting, diarrhea. She went at least 10 times for the last 2 days. She became extremely weak and tired and hence came to the emergency room and subsequently admitted to the hospital for further evaluation. She did have stool for C difficile toxin that was reported as negative. Today, she is feeling better. She still continues to have persistent weakness and fatigue. Nausea and vomiting has resolved. PAST MEDICAL HISTORY: Significant for hypertension, newly diagnosed cirrhosis of the liver, history of anxiety, depression, chronic kidney disease. PAST SURGICAL HISTORY: Hysterectomy, intestinal bypass surgery in , bilateral cataract surgeries, left tongue fistula. MEDICATIONS: Medications at home include Rocaltrol, vitamin D3, Lasix, amoxicillin, Paxil, potassium chloride, sodium bicarbonate, and Eliquis. ALLERGIES: None. SOCIAL HISTORY: No smoking, no alcohol use. FAMILY HISTORY: Unremarkable. REVIEW OF SYSTEMS: CARDIOPULMONARY: No chest pain or shortness of breath. GENITOURINARY: No dysuria or hematuria. MUSCULOSKELETAL: Unremarkable. SKIN: Unremarkable. ENDOCRINE: Unremarkable. PSYCHIATRIC: Unremarkable. NEUROLOGY: Unremarkable. CONSTITUTIONAL: Progressive weakness, fatigue. No fever, chills, night sweats. Weight loss of 5 pounds in the last 5 days. PHYSICAL EXAMINATION: GENERAL: She appears comfortable. No apparent distress. VITAL SIGNS: Stable. Blood pressure 111/52, pulse rate 64, temperature 98.1. HEENT: Examination unremarkable. Conjunctivae are pink. Sclerae anicteric. Oral cavity no lesions. NECK: No JVD or lymph node enlargement. CHEST: Clear to auscultation. HEART: Regular rate and rhythm. ABDOMEN: Soft, it was slightly distended. EXTREMITIES: Mild edema in the left ankle, but no pedal edema noted. NEURO: She is alert and oriented x3. No focal deficits. LABS: WBC 12.6, hemoglobin 11.3, platelets normal. BUN was 62, creatinine 3.39, sodium 134, potassium 3.2, chloride 102, CO2 14. AST, ALT are within normal limits. T bilirubin normal. Alkaline phosphatase 201. C difficile toxin is negative. Coronavirus PCR is negative. IMPRESSION: 1. Acute onset of nausea, vomiting, diarrhea of 2 days duration, most likely antibiotic associated. C difficile toxin has been negative. She is already feeling much better today. The patient took some antibiotics for tooth infection about 5 days ago. 2. Cryptogenic cirrhosis of the liver diagnosed a month ago. 3. Mild ascites. 4. Elevated BUN and creatinine in this lady with history of chronic kidney disease, stage 3. 5. Mild coagulopathy secondary to underlying chronic liver disease. RECOMMENDATIONS: 1. Obtain stool culture and ova parasites. 2. Continue with IV hydration. 3. Small frequent meals. 4. If the stool studies are negative, we will start her on antimotility agents. 5. We will follow with you closely. Thank you. KSENIA / FRANDY: [id number] /
[2020-11-10] MEDS: NYSTATIN 100,000 UNIT/ML SUSP 500,000 UNIT/5 ML CUP PO SCH ×2 (17:10→22:50)
[2020-11-10 23:29] LABS: Hepatitis B Surface AB- Quant 3.9 mIU/mL; Hepatitis B Surface Antibody Non-Reactive (Non-Reactive); Hepatitis B Surface Antigen Non-Reactive (Non-Reactive)
[2020-11-11 07:45] LABS: Calcium 6.8 mg/dL (8.4-10.2); Magnesium 1.6 mg/dL (1.6-2.3)
[2020-11-11 07:57] LABS: Potassium 2.5 mmol/L (3.5-5.1)
[2020-11-11] MEDS ORDERED: Potassium Replacement Protocol 1 EACH MISC MISCELLANE PRN (07:59)
[2020-11-11 08:00] LABS: HCT 33.2 % (34.0-46.0); HGB 10.8 gm/dL (11.4-16.0); Hypochromasia Moderate; MCH 33.6 pg (25.0-35.0); MCHC 32.5 g/dL (31.0-37.0); MCV 103.4 fL (80.0-100.0); Macrocytosis Slight; Mean Platelet Volume 8.4; Platelet Count 162 k/uL (150-450); RBC 3.21 m/uL (3.80-5.40); WBC 15.2 k/uL (3.8-10.6)
[2020-11-11 08:41] LABS: Band Neutrophils % 1 %; Lymphocytes # (M) 1.82 k/uL (1.0-4.8); Monocytes # (M) 1.37 k/uL (0-1.0); Myelocytes # (M) 0.15 k/uL (0); Myelocytes % 1 %; Neutrophils % (M) 76 %; Nucleated Red Blood Cells 0 /100 WBC (0-0); Total Cells Counted 200
[2020-11-11 08:42] LABS: Poikilocytosis (M) Present
[2020-11-11] MEDS: POTASSIUM CHLORIDE ER 20 MEQ TAB.ER PO SCH ×5 (09:01→12:11)
[2020-11-11] MEDS: CYANOCOBALAMIN 500 MCG TAB PO SCH (09:01)
[2020-11-11] MEDS: SODIUM BICARBONATE TAB 650 MG TAB PO SCH ×4 (09:01→21:36)
[2020-11-11] MEDS: APIXABAN 2.5 MG TABLET PO SCH ×2 (09:01→21:36)
[2020-11-11] MEDS: PARoxetine 20 MG TAB PO SCH (09:01)
[2020-11-11] MEDS: CHOLECALCIFEROL 25 MCG (1000 IU) TABLET PO SCH (09:02)
[2020-11-11] MEDS: FAMOTIDINE 20 MG TAB PO SCH (09:02)
[2020-11-11] MEDS: allopurinoL 100 MG TAB PO SCH (09:02)
[2020-11-11] MEDS: VERAPAMIL 40 MG TAB PO SCH (09:03)
[2020-11-11] MEDS: NYSTATIN 100,000 UNIT/ML SUSP 500,000 UNIT/5 ML CUP PO SCH ×4 (09:03→21:37)
[2020-11-11] MEDS: VIT A,C & E-LUTEIN-MINERALS 1 EACH TAB PO SCH ×2 (09:03→21:36)
[2020-11-11] MEDS ORDERED: POTASSIUM CHLORIDE 20 MEQ in WATER FOR INJECTION 1 100ML.BAG IVPB STA (10:30)
--- NOTE | 2020-11-11 11:06 | P.PN ---
Subjective Progress Note Date: 11/11/20 HISTORY OF PRESENT ILLNESS: 11/09/2020 This is a 80-year-old female with a past medical history significant for hypertension, hyperlipidemia, and chronic kidney disease. Patient does not follow with a medical records administrator. We have been asked to see the patient in consultation for atrial fibrillation. Patient examined at the bedside. Patient states she came to the emergency room secondary to diarrhea. Patient denies chest pain or pressure. She denies palpitations. She denies shortness of breath. EKG completed in the emergency room was interpreted as atrophic relation. Multiple EKGs obtained and reviewed this morning with Dr. Cruz. Rhythm appears to be multifocal atrial tachycardia rather than atrial fibrillation. EKG reveals multifocal atrial tachycardia Chest xray small bilateral pleural effusions. Laboratory data: WBC 12.6. Hemoglobin 11.3. Platelet count 174. Sodium 137. Potassium 3.2. BUN 58. Creatinine 3.22. Troponin negative 1. Current home cardiac medications include Lasix 40 mg daily 11/10/2020 Repeat EKG this morning now appears to be atrial fibrillation. Ventricular rate is controlled. Patient denies chest pain or pressure. Denies shortness of breath. Denies palpitations. Blood pressure 100/41. She is on room air with oxygen saturations greater than 92%. Echocardiogram completed revealed ejection fraction 55-60% with mild mitral regurgitation. 11/11/2020 Patient remains in atrial fibrillation with controlled ventricular rates. She w as started on Eliquis yesterday. Patient denies chest pain or pressure. Denies shortness of breath. Blood pressure 112/53. Creatinine 2.89 today, down from 3.22. Potassium 2.5. PHYSICAL EXAM: VITAL SIGNS: Reviewed. GENERAL: Well-developed in no acute distress. HEENT: Head is normocephalic. Pupils are equal, round. Sclerae anicteric. Mucous membranes of the mouth are moist. Neck supple. No JVD or thyromegaly LUNGS: Respirations even and unlabored. Lungs essentially clear to auscultation bilaterally. HEART: Irregular rate and rhythm. S1 and S2 heard. ABDOMEN: Soft. Nondistended. Nontender. EXTREMITIES: Normal range of motion. No clubbing or cyanosis. Peripheral pulse s intact. No lower extremity edema NEUROLOGIC: Awake and alert. Oriented x 3. ASSESSMENT: Nausea, vomiting, diarrhea New-onset atrial fibrillation Hypertension Hyperlipidemia Chronic kidney disease Hypokalemia PLAN: Continue Eliquis 2.5 mg twice a day Case management consulted to verify Eliquis co-pay Change verapamil to SR 120 mg daily Replace potassium Continue to monitor monitoring Further recommendations pending patient's course Nurse practitioner note has been reviewed by physician. Signing provider agrees with the documented findings, assessment, and plan of care. Objective - Vital Signs Vital signs: Vital Signs Temp 97.7 F 11/11/20 04:48 Pulse 70 11/11/20 04:48 Resp 16 11/11/20 04:48 BP 112/53 11/11/20 04:48 Pulse Ox 98 11/11/20 04:48 Intake & Output 11/10/20 11/11/20 11/11/20 18:59 06:59 18:59 Intake Total 1840 2029 240 Output Total 300 Balance 1840 2030 -60 Weight 61.4 kg Intake: Intake, IV Titration 400 1000 Amount Dextrose 5% in Water 1, 1000 000 ml @ 100 mls/hr IV . [id number] DURAN with Sodium Bicarb (1 Meq/ml) 150 ml Rx#:[id number] Potassium Chloride 20 meq 400 In Water For Injection 1 100ml.bag @ 50 mls/hr IVPB ONCE STA Rx#: [id number] Oral 1440 1030 240 Output: Urine 300 Other: Voiding Method Toilet Toilet # Voids 0 350 1 # Bowel Movements 0 1 - Labs CBC & Chem 7: 11/11/20 06:32 11/11/20 06:32 Labs: Abnormal Lab Results - Last 24 Hours (Table) 11/11/20 11/11/20 Range/Units 06:32 06:32 WBC 15.2 H (3.8-10.6) k/uL RBC 3.21 L (3.80-5.40) m/uL Hgb 10.8 L (11.4-16.0) gm/dL Hct 33.2 L (34.0-46.0) % MCV 103.4 H (80.0-100.0) fL Neutrophils # (Manual) 11.70 H (1.3-7.7) k/uL Monocytes # (Manual) 1.37 H (0-1.0) k/uL Myelocytes # (Manual) 0.15 H (0) k/uL Sodium 136 L (137-145) mmol/L Potassium 2.5 L* (3.5-5.1) mmol/L Chloride 108 H (98-107) mmol/L Carbon Dioxide 16 L (22-30) mmol/L BUN 54 H (7-17) mg/dL Creatinine 2.89 H (0.52-1.04) mg/dL Glucose 121 H (74-99) mg/dL Calcium 6.8 L (8.4-10.2) mg/dL Microbiology - Last 24 Hours (Table) 11/10/20 18:12 Stool Culture - Preliminary Stool 11/09/20 12:29 Urine Culture - Preliminary Urine,Voided Gram Neg Bacilli
[2020-11-11] MEDS: DEXTROSE 5% IN WATER 1,000 ML with SODIUM BICARB (1 MEQ/ML) 150 ML, POTASSIUM CHLORIDE ... IV SCH ×6 (12:09→23:01)
[2020-11-11] MEDS: VERAPAMIL SR 120 MG TABLET.ER PO SCH (12:12)
--- NOTE | 2020-11-11 14:10 | P.PN ---
Subjective Progress Note Date: 11/11/20 Principal diagnosis: Nausea, vomiting, diarrhea Patient is seen and examined lying in bed. She states she had 2 loose stools today. She denies any rectal bleeding or melena. Today's hemoglobin stable at 10.8. Stool has been sent down for stool culture with results pending. C. diff is negative as well as lactoferrin. Objective - Vital Signs Vital signs: Vital Signs Temp 97.7 F 11/11/20 04:48 Pulse 70 11/11/20 04:48 Resp 16 11/11/20 04:48 BP 112/53 11/11/20 04:48 Pulse Ox 98 11/11/20 04:48 Intake & Output 11/10/20 11/11/20 11/11/20 18:59 06:59 18:59 Intake Total 1839 2029 240 Output Total 300 Balance 1839 2030 -60 Weight 61.4 kg Intake: Intake, IV Titration 400 1000 Amount Dextrose 5% in Water 1, 1000 000 ml @ 100 mls/hr IV . [id number] DURAN with Sodium Bicarb (1 Meq/ml) 150 ml Rx#:[id number] Potassium Chloride 20 meq 400 In Water For Injection 1 100ml.bag @ 50 mls/hr IVPB ONCE STA Rx#: [id number] Oral 1440 1030 240 Output: Urine 300 Other: Voiding Method Toilet Toilet # Voids 0 350 1 # Bowel Movements 0 1 - Exam General appearance: The patient is alert, oriented, appears in no acute distress. HET: Head is normocephalic and atraumatic. Conjunctiva pink. Sclera anicteric. Neck: Supple without lymphadenopathy. Abdomen: Soft, nontender, nondistended with bowel sounds. No guarding or rigidity. Extremities: Normal skin color and turgor. No pedal edema Skin: No rashes, no jaundice Neurological: No focal deficits. Alert and oriented 3. - Labs CBC & Chem 7: 11/11/20 06:32 11/11/20 06:32 Labs: Abnormal Lab Results - Last 24 Hours (Table) 11/11/20 11/11/20 Range/Units 06:32 06:32 WBC 15.2 H (3.8-10.6) k/uL RBC 3.21 L (3.80-5.40) m/uL Hgb 10.8 L (11.4-16.0) gm/dL Hct 33.2 L (34.0-46.0) % MCV 103.4 H (80.0-100.0) fL Neutrophils # (Manual) 11.70 H (1.3-7.7) k/uL Monocytes # (Manual) 1.37 H (0-1.0) k/uL Myelocytes # (Manual) 0.15 H (0) k/uL Sodium 136 L (137-145) mmol/L Potassium 2.5 L* (3.5-5.1) mmol/L Chloride 108 H (98-107) mmol/L Carbon Dioxide 16 L (22-30) mmol/L BUN 54 H (7-17) mg/dL Creatinine 2.89 H (0.52-1.04) mg/dL Glucose 121 H (74-99) mg/dL Calcium 6.8 L (8.4-10.2) mg/dL Microbiology - Last 24 Hours (Table) 11/10/20 18:12 Stool Culture - Preliminary Stool 11/09/20 12:29 Urine Culture - Preliminary Urine,Voided Gram Neg Bacilli Assessment and Plan (1) Diarrhea Narrative/Plan: This is a pleasant 80-year-old female who had a subacute onset of nausea and d iarrhea. She's had diarrhea for the past 2 days duration most likely antibiotic associated. C. difficile toxin has been negative. She states she has already feeling better with decreased amounts of loose stools. The patient had been on antibiotics for a recent tooth infection. Stool cultures and OVA/Parasites ordered and pending. Current Visit: Yes Status: Acute Code(s): R19.7 - DIARRHEA, UNSPECIFIED SNOMED Code(s): 32330499 (2) CKD (chronic kidney disease) Current Visit: Yes Status: Acute Code(s): N18.9 - CHRONIC KIDNEY DISEASE, UNSPECIFIED SNOMED Code(s): 105092698 (3) Cryptogenic cirrhosis of liver Current Visit: No Status: Acute Code(s): K74.69 - OTHER CIRRHOSIS OF LIVER SNOMED Code(s): 16879808 Plan: 1. Obtain stool culture and Ova/Parasite pending 2. Continue IV hydration 3. Diet as tolerated 4. Stool studies negative, will add antidiarrheal Thank you for this consultation, we will continue to follow Dr. Garcia I agree with the dictator's note, documented as a scribe by Veronica Ghosh.
--- NOTE | 2020-11-11 14:14 | PN ---
PROGRESS NOTE Patient is seen for followup for acute kidney injury on top of chronic kidney disease, severe metabolic acidosis. Patient is maintained on a bicarb drip. Her acidosis is finally improved. She is also maintained on oral sodium bicarb. Appetite is somewhat improved, although oral intake remains poor. The patient remains hypokalemic and her potassium is currently being replaced. I have considered initiating renal replacement therapy on this admission given the persistent metabolic acidosis and poor oral intake. This morning serum creatinine has decreased to 2.89 from 3.2 yesterday and overall patient states she is feeling better. Therefore, we will continue with the IV fluids for now. I tried to get in touch with the daughter yesterday however I have not heard back from her and I will try to connect with her again today. PHYSICAL EXAMINATION: On examination today, blood pressure was 109/51, heart rate 63 per minute. Patient is afebrile. EXAMINATION OF THE HEART: S1, S2. EXAMINATION OF LUNGS: Decreased breath sounds at bases. Abdomen is soft, nontender. Examination of lower extremities shows 1+ edema left lower extremity. No edema right lower extremity. RETAIL DEPARTMENT MANAGER exam grossly intact. LABS: Labs show sodium 136, potassium 2.5, chloride 108, CO2 of 16, BUN 54, creatinine 2.89, hemoglobin 10.8 g/dL. ASSESSMENT: 1. Acute kidney injury prerenal currently improved with IV hydration. 2. Severe metabolic acidosis associated with advanced CKD and some diarrhea as well currently somewhat improved with oral bicarb as well as IV bicarb. 3. Hypokalemia associated with gastrointestinal fluid loss as well as bicarb drip and decreased oral intake, replace aggressively. 4. Chronic kidney disease stage 4 to 5 with baseline creatinine around 3 mg/dL. 5. Generalized debility, decreased oral intake. Consider starting dialysis this admission. 6. Recent diagnosis of chronic liver disease, unclear etiology. PLAN: Replace potassium. Continue with bicarb drip. Will get in touch with the daughter again. Continue to encourage increased oral intake. I will add potassium and maintain his IV fluids as well. MMODL / IJN: [id number] /
--- NOTE | 2020-11-11 22:25 | P.PN ---
Subjective Progress Note Date: 11/11/20 Principal diagnosis: Nausea, vomiting, diarrhea Paroxysmal atrial fibrillation Acute on chronic kidney disease 80-year-old female presenting to the emergency Department with complaints of diarrhea but steadily increasing over the past few days. Patient was recently admitted one month ago for a liver failure and ascites. She has been seeing a Dr. Quiroz. Patient's daughter is here with her now is helping with history. Patient states ever since her hospital admission she has been dealing with diarrhea but over the past 3 days she has been feeling weaker, has been incontinent to diarrhea. She has not had an appetite, she feels intermittent nausea but no vomiting. No fevers or chills. She denies any pain anywhere including no chest pain or shortness of breath. No abdominal pain. Patient recently had a tooth pulled 3 days ago and then 2 days ago was started on amoxicillin. Patient feels like the antibiotic made things worse. Patient does have follow-up with Dr. Curran's office and patient has remained stable. Patient has no further complaints at this time. Upon arrival to the ER, her vital signs are stable. Workup in ED including an EKG revealed A. fib, left axis deviation, inferior infarct age undetermined with ventricular rate of 93; repeat EKG revealed normal sinus rhythm with occasional PVCs Blood work with chemical profile sodium 134, potassium 3.2, BUN of 60 to come a creatinine of 3.30; CBC with white blood count of 12.6 with normal lactic acid level, PT/INR of 15.7/1.6 Patient is admitted to the hospital for acute renal injury/dehydration and paroxysmal atrial fibrillation 11/09/2020 Patient is seen and evaluated sitting up in chair with daughter at bedside; continues to complain of several episodes of diarrhea; C. 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; await further recommendations from cardiology once echocardiogram is completed We will plan to consult GI for persistent diarrhea 11/10/2020 Patient is seen and evaluated with daughter at bedside; complains of burning and redness of time with pain while eating; continues to have episodes of diarrhea; hasn't been seen by GI service Nephrology following for 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 likely prerenal; creatinine slowly trending down at 3.2 this morning; severe metabolic acidosis due to renal failure; patient has been placed on IV bicarbonate infusion without any improvement in metabolic acidosis; nephrology recommending possible start of dialysis; patient and family will discuss and make a decision Cardiology is on board for MAT versus new onset atrial fibrillation; EKG this morning is more consistent with atrial fibrillation with controlled ventricular rate; echocardiogram reveals an EF of 55-60% with mild mitral regurg; cardiology recommending anticoagulation with Eliquis and patient has been placed on omar apamil 40 mg twice a day We will place patient on nystatin swish and swallow for oral thrush 11/11/2020 Patient is currently sitting in the chair. Awake alert and oriented. Denied any complaints of chest pain or shortness of breath. Patient remained on anticoagulation with Eliquis. Atrial fibrillation with controlled heart rate. No complaints of abdominal pain. Otherwise patient is still having diarrhea. Stool cultures showed no growth. Urine culture is growing gram-negative bacilli. Creatinine level improved to 2.89 today. Potassium is 2.5 which is being replaced. Patient has been afebrile. Laboratory data showed WBC 15.2 and hemoglobin 10.8 and MCV 103.4 Patient is currently being continued on D5 water at 100 cc/h. Cardiology, nephrology and GI is on board. Discussed with the patient's daughter at bedside in detail. Current medications reviewed. Objective - Vital Signs Vital signs: Vital Signs Temp 97.4 F L 11/11/20 08:00 Pulse 84 11/11/20 12:00 Resp 16 11/11/20 12:00 BP 107/51 11/11/20 12:00 Pulse Ox 95 11/11/20 12:00 Intake & Output 11/10/20 11/11/20 11/11/20 18:59 06:59 18:59 Intake Total 1839 2029 240 Output Total 300 Balance 1839 2029 -60 Weight 61.4 kg Intake: Intake, IV Titration 400 1000 Amount Dextrose 5% in Water 1, 1000 000 ml @ 100 mls/hr IV . [id number] DURAN with Sodium Bicarb (1 Meq/ml) 150 ml Rx#:[id number] Potassium Chloride 20 meq 400 In Water For Injection 1 100ml.bag @ 50 mls/hr IVPB ONCE STA Rx#: [id number] Oral 1440 1030 240 Output: Urine 300 Other: Voiding Method Toilet Toilet Toilet # Voids 0 350 1 # Bowel Movements 0 1 - Exam - Exam - Constitutional General appearance: Present: average body habitus, cooperative, no acute distress - EENT Eyes: Present: anicteric sclerae, EOMI, PERRLA, normal appearance ENT: Present: hearing grossly normal, normal oropharynx Ears: bilateral: normal - Neck Neck: Present: normal ROM. Absent: lymphadenopathy, rigidity, thyromegaly Carotids: negative: bruit present Thyroid: bilateral: normal size, negative: enlarged, nodule - Respiratory Respiratory: bilateral: CTA, negative: rales, rhonchi, wheezing - Cardiovascular Rhythm: regular Heart sounds: normal: S1, S2 Abnormal Heart Sounds: Absent: systolic murmur, diastolic murmur - Gastrointestinal General gastrointestinal: Present: normal bowel sounds, soft. Absent: distended, organomegaly, tenderness - Genitourinary Genitourinary Comment(s): deferred - Integumentary Integumentary: Present: normal turgor. Absent: jaundiced, rash, ulcer - Neurologic Neurologic: Present: CNII-XII intact. Absent: focal deficits - Musculoskeletal Musculoskeletal: Present: gait normal, strength equal bilaterally - Psychiatric Psychiatric: Present: A&O x's 3, appropriate affect, intact judgment & insight - Labs CBC & Chem 7: 11/11/20 06:32 11/11/20 06:32 Labs: Abnormal Lab Results - Last 24 Hours (Table) 11/11/20 11/11/20 Range/Units 06:32 06:32 WBC 15.2 H (3.8-10.6) k/uL RBC 3.21 L (3.80-5.40) m/uL Hgb 10.8 L (11.4-16.0) gm/dL Hct 33.2 L (34.0-46.0) % MCV 103.4 H (80.0-100.0) fL Neutrophils # (Manual) 11.70 H (1.3-7.7) k/uL Monocytes # (Manual) 1.37 H (0-1.0) k/uL Myelocytes # (Manual) 0.15 H (0) k/uL Sodium 136 L (137-145) mmol/L Potassium 2.5 L* (3.5-5.1) mmol/L Chloride 108 H (98-107) mmol/L Carbon Dioxide 16 L (22-30) mmol/L BUN 54 H (7-17) mg/dL Creatinine 2.89 H (0.52-1.04) mg/dL Glucose 121 H (74-99) mg/dL Calcium 6.8 L (8.4-10.2) mg/dL Microbiology - Last 24 Hours (Table) 11/10/20 18:12 Stool Culture - Preliminary Stool 11/09/20 12:29 Urine Culture - Preliminary Urine,Voided Gram Neg Bacilli Assessment and Plan Assessment: 1. Acute on chronic kidney disease - Patient is started on IV fluids in form of D5 half-normal saline at a rate of 100 mL an hour; we will monitor strict ALLAN's, daily weights, renal function and electrolytes; avoid nephrotoxic agents; continue with sodium bicarbonate 1300 mg by mouth QID - Nephrology is following 2. Gram-negative bacilli urinary tract infection. Follow-up final urine culture report. 2. Intractable nausea/vomiting/diarrhea; Possibly antibiotic induced - Patient is started on IV fluids; continue to monitor electrolytes and renal function; symptomatic treatment of nausea and vomiting Replace potassium due to severe hyperkalemia. 3. Hypotension/dehydration; secondary to #2; IV fluid hydration as indicated above 4. Leukocytosis; possibly reactive; patient is afebrile with normal lactic acid level; we will monitor CBC and initiates sepsis workup if white blood count continues to trend up 5. Paroxysmal atrial fibrillation; new onset; Patient is currently in atrial fibrillation but rate is controlled. Continued on verapamil and anticoagulation with Eliquis. 6. Vitamin B12 deficiency; continue with oral supplement thousand MCG daily 7. Vitamin D deficiency; vitamin D3 125 MCG daily DVT prophylaxis SCDs CODE STATUS; full code Time with Patient: Greater than 30
[2020-11-11] MEDS: CEFEPIME 1 GM in SODIUM CHLORIDE 0.9% 50 ML IVPB SCH (23:24)
[2020-11-12] MEDS: DEXTROSE 5% IN WATER 1,000 ML with SODIUM BICARB (1 MEQ/ML) 150 ML, POTASSIUM CHLORIDE ... IV SCH ×6 (03:58→21:19)
[2020-11-12 08:06] LABS: Calcium 6.7 mg/dL (8.4-10.2); Potassium 2.9 mmol/L (3.5-5.1)
[2020-11-12 08:24] LABS: Basophils % (A) 0 %; Eosinophils # (A) 0.2 k/uL (0-0.7); Eosinophils % (A) 2 %; HCT 33.8 % (34.0-46.0); HGB 10.6 gm/dL (11.4-16.0); Hypochromasia Slight; Lymphocytes # (A) 1.1 k/uL (1.0-4.8); Lymphocytes % (A) 8 %; MCH 32.6 pg (25.0-35.0); MCHC 31.4 g/dL (31.0-37.0); MCV 103.7 fL (80.0-100.0); Macrocytosis Slight; Mean Platelet Volume 8.4; Monocytes # (A) 1.2 k/uL (0-1.0); Monocytes % (A) 9 %; Neutrophils # (A) 10.6 k/uL (1.3-7.7); Neutrophils % (A) 80 %; Platelet Count 160 k/uL (150-450); RBC 3.26 m/uL (3.80-5.40); RDW 14.5 % (11.5-15.5); WBC 13.3 k/uL (3.8-10.6)
[2020-11-12] MEDS: CYANOCOBALAMIN 500 MCG TAB PO SCH (08:39)
[2020-11-12] MEDS: POTASSIUM CHLORIDE ER 20 MEQ TAB.ER PO SCH ×2 (08:39→08:41)
[2020-11-12] MEDS: FAMOTIDINE 20 MG TAB PO SCH (08:39)
[2020-11-12] MEDS: CHOLECALCIFEROL 25 MCG (1000 IU) TABLET PO SCH (08:39)
[2020-11-12] MEDS: SODIUM BICARBONATE TAB 650 MG TAB PO SCH ×4 (08:39→20:42)
[2020-11-12] MEDS: VIT A,C & E-LUTEIN-MINERALS 1 EACH TAB PO SCH ×2 (08:40→20:42)
[2020-11-12] MEDS: APIXABAN 2.5 MG TABLET PO SCH ×2 (08:40→20:42)
[2020-11-12] MEDS: PARoxetine 20 MG TAB PO SCH (08:40)
[2020-11-12] MEDS: VERAPAMIL SR 120 MG TABLET.ER PO SCH (08:40)
[2020-11-12] MEDS: allopurinoL 100 MG TAB PO SCH (08:40)
[2020-11-12] MEDS: NYSTATIN 100,000 UNIT/ML SUSP 500,000 UNIT/5 ML CUP PO SCH ×4 (08:42→20:43)
[2020-11-12] MEDS ORDERED: POTASSIUM CHLORIDE 20 MEQ in WATER FOR INJECTION 1 100ML.BAG IVPB STA (10:53)
--- NOTE | 2020-11-12 11:33 | P.PN ---
Subjective Progress Note Date: 11/12/20 HISTORY OF PRESENT ILLNESS: 11/09/2020 This is a 80-year-old female with a past medical history significant for hypertension, hyperlipidemia, and chronic kidney disease. Patient does not follow with a manager chemistry. We have been asked to see the patient in consultation for atrial fibrillation. Patient examined at the bedside. Patient states she came to the emergency room secondary to diarrhea. Patient denies chest pain or pressure. She denies palpitations. She denies shortness of breath. EKG completed in the emergency room was interpreted as atrophic relation. Multiple EKGs obtained and reviewed this morning with Dr. Cruz. Rhythm appears to be multifocal atrial tachycardia rather than atrial fibrillation. EKG reveals multifocal atrial tachycardia Chest xray small bilateral pleural effusions. Laboratory data: WBC 12.6. Hemoglobin 11.3. Platelet count 174. Sodium 137. Potassium 3.2. BUN 58. Creatinine 3.22. Troponin negative 1. Current home cardiac medications include Lasix 40 mg daily 11/10/2020 Repeat EKG this morning now appears to be atrial fibrillation. Ventricular rate is controlled. Patient denies chest pain or pressure. Denies shortness of breath. Denies palpitations. Blood pressure 100/41. She is on room air with oxygen saturations greater than 92%. Echocardiogram completed revealed ejection fraction 55-60% with mild mitral regurgitation. 11/11/2020 Patient remains in atrial fibrillation with controlled ventricular rates. She w as started on Eliquis yesterday. Patient denies chest pain or pressure. Denies shortness of breath. Blood pressure 112/53. Creatinine 2.89 today, down from 3.22. Potassium 2.5. 11/12/2020 Patient remains in atrial fibrillation with controlled ventricular rates. She remains on Eliquis. Denies chest pain or pressure. Denies shortness of breath. Blood pressure 95/56. PHYSICAL EXAM: VITAL SIGNS: Reviewed. GENERAL: Well-developed in no acute distress. HEENT: Head is normocephalic. Pupils are equal, round. Sclerae anicteric. Mucous membranes of the mouth are moist. Neck supple. No JVD or thyromegaly LUNGS: Respirations even and unlabored. Lungs essentially clear to auscultation bilaterally. HEART: Irregular rate and rhythm. S1 and S2 heard. EXTREMITIES: Normal range of motion. No clubbing or cyanosis. Peripheral pulses intact. No lower extremity edema ASSESSMENT: Nausea, vomiting, diarrhea New-onset atrial fibrillation Hypertension Hyperlipidemia Chronic kidney disease Hypokalemia PLAN: Continue Eliquis 2.5 mg twice a day Continue current dose of verapamil Continue telemetry monitoring Replace potassium. Check magnesium level. Further recommendations pending patient's course Nurse practitioner note has been reviewed by physician. Signing provider agrees with the documented findings, assessment, and plan of care. Objective - Vital Signs Vital signs: Vital Signs Temp 97.6 F 11/12/20 04:00 Pulse 78 11/12/20 08:00 Resp 16 11/12/20 08:00 BP 95/56 11/12/20 08:00 Pulse Ox 100 11/12/20 08:00 Intake & Output 11/11/20 11/12/20 11/12/20 18:59 06:59 18:59 Intake Total 1016 660 Output Total 300 2 Balance 716 660 -2 Weight 69.6 kg Intake: Oral 1016 660 Output: Urine 300 Stool 2 Other: Voiding Method Toilet Toilet Toilet # Voids 1 1 1 # Bowel Movements 2 1 - Labs CBC & Chem 7: 11/12/20 06:25 11/12/20 06:25 Labs: Abnormal Lab Results - Last 24 Hours (Table) 11/12/20 11/12/20 Range/Units 06:25 06:25 WBC 13.3 H (3.8-10.6) k/uL RBC 3.26 L (3.80-5.40) m/uL Hgb 10.6 L (11.4-16.0) gm/dL Hct 33.8 L (34.0-46.0) % MCV 103.7 H (80.0-100.0) fL Neutrophils # 10.6 H (1.3-7.7) k/uL Monocytes # 1.2 H (0-1.0) k/uL Potassium 2.9 L (3.5-5.1) mmol/L Carbon Dioxide 20 L (22-30) mmol/L BUN 52 H (7-17) mg/dL Creatinine 2.83 H (0.52-1.04) mg/dL Glucose 113 H (74-99) mg/dL Calcium 6.7 L (8.4-10.2) mg/dL Microbiology - Last 24 Hours (Table) 11/09/20 12:29 Urine Culture - Final Urine,Voided Enterobacter cloacae Escherichia coli
--- NOTE | 2020-11-12 12:00 | P.PN ---
Subjective Progress Note Date: 11/12/20 Principal diagnosis: Nausea, vomiting, diarrhea She was seen and examined lying in bed. She reports having 2 episodes of loose bowel movements today. Denies any blood in her stool or rectal bleeding. States she has some mild cramping only at time of bowel movement. Stool sample still not collected for ova and parasite. She denies any other abdominal pain, nausea, or vomiting. She is on IV antibiotics. Objective - Vital Signs Vital signs: Vital Signs Temp 97.6 F 11/12/20 04:00 Pulse 78 11/12/20 08:00 Resp 16 11/12/20 08:00 BP 95/56 11/12/20 08:00 Pulse Ox 100 11/12/20 08:00 Intake & Output 11/11/20 11/12/20 11/12/20 18:59 06:59 18:59 Intake Total 1016 660 Output Total 300 Balance 716 660 Weight 69.6 kg Intake: Oral 1016 660 Output: Urine 300 Other: Voiding Method Toilet Toilet # Voids 1 1 # Bowel Movements 2 1 - Exam General appearance: The patient is alert, oriented, appears in no acute distress. HET: Head is normocephalic and atraumatic. Conjunctiva pink. Sclera anicteric. Neck: Supple without lymphadenopathy. Abdomen: Soft, nontender, nondistended with bowel sounds. No guarding or rigidity. Extremities: Normal skin color and turgor. No pedal edema Skin: No rashes, no jaundice Neurological: No focal deficits. Alert and oriented 3. - Labs CBC & Chem 7: 11/12/20 06:25 11/12/20 06:25 Labs: Abnormal Lab Results - Last 24 Hours (Table) 11/12/20 11/12/20 Range/Units 06:25 06:25 WBC 13.3 H (3.8-10.6) k/uL RBC 3.26 L (3.80-5.40) m/uL Hgb 10.6 L (11.4-16.0) gm/dL Hct 33.8 L (34.0-46.0) % MCV 103.7 H (80.0-100.0) fL Neutrophils # 10.6 H (1.3-7.7) k/uL Monocytes # 1.2 H (0-1.0) k/uL Potassium 2.9 L (3.5-5.1) mmol/L Carbon Dioxide 20 L (22-30) mmol/L BUN 52 H (7-17) mg/dL Creatinine 2.83 H (0.52-1.04) mg/dL Glucose 113 H (74-99) mg/dL Calcium 6.7 L (8.4-10.2) mg/dL Microbiology - Last 24 Hours (Table) 11/09/20 12:29 Urine Culture - Final Urine,Voided Enterobacter cloacae Escherichia coli Assessment and Plan (1) Diarrhea Narrative/Plan: This is a pleasant 80-year-old female who had a subacute onset of nausea and diarrhea. She's had diarrhea for the past 2 days duration most likely antibiotic associated. C. difficile toxin has been negative. She states she has already feeling better with decreased amounts of loose stools. The patient had been on antibiotics for a recent tooth infection and currently is on broad- spectrum antibiotics. Stool cultures and OVA/Parasites ordered and pending. Current Visit: Yes Status: Acute Code(s): R19.7 - DIARRHEA, UNSPECIFIED SN OMED Code(s): 79295899 (2) CKD (chronic kidney disease) Current Visit: Yes Status: Acute Code(s): N18.9 - CHRONIC KIDNEY DISEASE, UNSPECIFIED SNOMED Code(s): 517693840 (3) Cryptogenic cirrhosis of liver Current Visit: No Status: Acute Code(s): K74.69 - OTHER CIRRHOSIS OF LIVER SNOMED Code(s): 53122416 Plan: 1. Obtain stool culture and Ova/Parasite 2. Continue IV hydration 3. Diet as tolerated 4. Clostridium difficile negative 5. Start Imodium 2 mg as needed Thank you for this consultation, we will continue to follow Dr. Garcia I agree with the dictator's note, documented as a scribe by Veronica Ghosh.
--- NOTE | 2020-11-12 12:08 | PN ---
PROGRESS NOTE Patient is seen for followup for chronic kidney disease and acute kidney injury. She was admitted with diarrhea, severe metabolic acidosis and hypokalemia currently maintained on IV bicarb. Serum creatinine improved slightly; however, now staying at about 2.8. This morning, patient states she is overall feeling slightly better. She only had 2 bowel movements yesterday and has had just one so far and it was not significantly loose. PHYSICAL EXAMINATION: Blood pressure 95/56, heart rate 78 per minute. She is afebrile. EXAMINATION OF THE HEART: S1, S2. EXAMINATION OF LUNGS: Decreased breath sounds at bases. Abdomen is soft, nontender. Examination of lower extremities shows edema 1+ bilaterally. SUPERINTENDENT STORAGE AREA exam grossly intact. LABS: Labs show sodium of 137, potassium 2.9, chloride 107, BUN 52, creatinine 2.83, hemoglobin of 10.6 g/dL. ASSESSMENT: 1. Acute kidney injury prerenal currently improved with IV hydration. 2. Hypokalemia associated with IV bicarb administration, poor oral intake with history of diarrhea being replaced. 3. Non gap metabolic acidosis associated with renal failure and diarrhea, maintained on bicarb drip and improving. 4. Overall generalized debility. PLAN: I discussed with the patient and at this time given the ongoing generalized weakness and the presence of edema now with IV fluids. I will proceed with dialysis. The patient is agreeable. We will plan for her first treatment tomorrow. Although the renal function has improved slightly, but patient does not feel significantly well there may be a component of subtle uremia and especially with the ongoing metabolic acidosis, she will likely benefit from starting renal replacement therapy. She has now developed some degree of mild volume overload. Therefore, we cannot continue with the IV bicarb for a long time now. I will discuss with her daughter is well. MMODL / IJN: [id number] /
[2020-11-12] MEDS: LOPERAMIDE 2 MG CAP PO PRN ×3 (12:11→15:59)
[2020-11-12] MEDS: CEFEPIME 1 GM in SODIUM CHLORIDE 0.9% 50 ML IVPB SCH (21:20)
[2020-11-13 08:50] LABS: Basophils % (A) 0 %; Eosinophils # (A) 0.2 k/uL (0-0.7); Eosinophils % (A) 1 %; HCT 33.2 % (34.0-46.0); HGB 10.6 gm/dL (11.4-16.0); Hypochromasia Slight; Lymphocytes # (A) 1.2 k/uL (1.0-4.8); Lymphocytes % (A) 9 %; MCH 33.2 pg (25.0-35.0); MCV 103.7 fL (80.0-100.0); Macrocytosis Slight; Mean Platelet Volume 8.1; Monocytes # (A) 1.4 k/uL (0-1.0); Monocytes % (A) 11 %; Neutrophils # (A) 10.3 k/uL (1.3-7.7); Neutrophils % (A) 77 %; Platelet Count 160 k/uL (150-450); RDW 14.2 % (11.5-15.5); WBC 13.4 k/uL (3.8-10.6)
[2020-11-13 09:08] LABS: Calcium 6.8 mg/dL (8.4-10.2); Potassium 4.6 mmol/L (3.5-5.1)
--- NOTE | 2020-11-13 09:48 | P.PN ---
Subjective Progress Note Date: 11/13/20 Principal diagnosis: Nausea, vomiting, diarrhea Patient seen and examined lying in bed. She is getting her first treatment of hemodialysis. She states she had a couple more episodes of diarrhea yesterday evening, however has not had any today. She has Imodium ordered as needed. Denies any nausea, vomiting, or abdominal pain. Objective - Vital Signs Vital signs: Vital Signs Temp 97.5 F L 11/13/20 08:19 Pulse 92 11/13/20 08:19 Resp 15 11/13/20 08:19 BP 119/66 11/13/20 08:19 Pulse Ox 96 11/13/20 08:19 Intake & Output 11/12/20 11/13/20 11/13/20 18:59 06:59 18:59 Intake Total 240 550 Output Total 3 1 Balance 237 549 Intake: IV 500 Dextrose 5% in Water 1, 500 000 ml @ 100 mls/hr IV . [id number] DURAN with Sodium Bicarb (1 Meq/ml) 150 ml with Potassium Chloride 20 meq Rx#:[id number] Intake, IV Titration 50 Amount Cefepime 1 gm In Sodium 50 Chloride 0.9% 50 ml @ 12. 5 mls/hr IVPB DAILY@2200 DURAN Rx#:[id number] Oral 240 Output: Stool 3 1 Other: Voiding Method Toilet Toilet # Voids 1 # Bowel Movements 1 1 - Exam General appearance: The patient is alert, oriented, appears in no acute distress. HET: Head is normocephalic and atraumatic. Conjunctiva pink. Sclera anicteric. Neck: Supple without lymphadenopathy. Abdomen: Soft, nontender, nondistended with bowel sounds. No guarding or rigidity. Extremities: Normal skin color and turgor. No pedal edema Skin: No rashes, no jaundice Neurological: No focal deficits. Alert and oriented 3. - Labs CBC & Chem 7: 11/13/20 07:43 11/13/20 07:43 Labs: Abnormal Lab Results - Last 24 Hours (Table) 11/13/20 11/13/20 Range/Units 07:43 07:43 WBC 13.4 H (3.8-10.6) k/uL RBC 3.20 L (3.80-5.40) m/uL Hgb 10.6 L (11.4-16.0) gm/dL Hct 33.2 L (34.0-46.0) % MCV 103.7 H (80.0-100.0) fL Neutrophils # 10.3 H (1.3-7.7) k/uL Monocytes # 1.4 H (0-1.0) k/uL BUN 52 H (7-17) mg/dL Creatinine 2.82 H (0.52-1.04) mg/dL Glucose 159 H (74-99) mg/dL Calcium 6.8 L (8.4-10.2) mg/dL Microbiology - Last 24 Hours (Table) 11/10/20 18:12 Stool Culture - Preliminary Stool Assessment and Plan (1) Diarrhea Narrative/Plan: This is a pleasant 80-year-old female who had a subacute onset of nausea and diarrhea. She's had diarrhea for the past 2 days duration most likely antibiotic associated. C. difficile toxin has been negative. She states she has already feeling better with decreased amounts of loose stools. The patient had been on antibiotics for a recent tooth infection and currently is on broad- spectrum antibiotics. Stool cultures and OVA/Parasites ordered and pending. Current Visit: Yes Status: Acute Code(s): R19.7 - DIARRHEA, UNSPECIFIED SNOMED Code(s): 06358916 (2) CKD (chronic kidney disease) Current Visit: Yes Status: Acute Code(s): N18.9 - CHRONIC KIDNEY DISEASE, UNSPECIFIED SNOMED Code(s): 759887536 (3) Cryptogenic cirrhosis of liver Current Visit: No Status: Acute Code(s): K74.69 - OTHER CIRRHOSIS OF LIVER SNOMED Code(s): 62222915 Plan: 1. Stool cultures negative 2. Continue IV hydration 3. Diet as tolerated 4. Clostridium difficile negative 5. Continue Imodium 2 mg as needed Thank you for this consultation, we will sign off at this time. Please do not hesitate to call us back if needed. Dr. Garcia I agree with the dictator's note, documented as a scribe by Veronica Ghosh.
[2020-11-13] MEDS: VERAPAMIL SR 120 MG TABLET.ER PO SCH (10:04)
[2020-11-13] MEDS: MIDODRINE 5 MG TAB PO SCH ×2 (10:04→18:05)
[2020-11-13] MEDS: LACTATED RINGERS 1,000 ML IV SCH (10:04)
--- NOTE | 2020-11-13 11:04 | P.PN ---
Subjective Progress Note Date: 11/13/20 HISTORY OF PRESENT ILLNESS: 11/09/2020 This is a 80-year-old female with a past medical history significant for hypertension, hyperlipidemia, and chronic kidney disease. Patient does not follow with a psychiatric orderly. We have been asked to see the patient in consultation for atrial fibrillation. Patient examined at the bedside. Patient states she came to the emergency room secondary to diarrhea. Patient denies chest pain or pressure. She denies palpitations. She denies shortness of breath. EKG completed in the emergency room was interpreted as atrophic relation. Multiple EKGs obtained and reviewed this morning with Dr. Cruz. Rhythm appears to be multifocal atrial tachycardia rather than atrial fibrillation. EKG reveals multifocal atrial tachycardia Chest xray small bilateral pleural effusions. Laboratory data: WBC 12.6. Hemoglobin 11.3. Platelet count 174. Sodium 137. Potassium 3.2. BUN 58. Creatinine 3.22. Troponin negative 1. Current home cardiac medications include Lasix 40 mg daily 11/10/2020 Repeat EKG this morning now appears to be atrial fibrillation. Ventricular rate is controlled. Patient denies chest pain or pressure. Denies shortness of breath. Denies palpitations. Blood pressure 100/41. She is on room air with oxygen saturations greater than 92%. Echocardiogram completed revealed ejection fraction 55-60% with mild mitral regurgitation. 11/11/2020 Patient remains in atrial fibrillation with controlled ventricular rates. She w as started on Eliquis yesterday. Patient denies chest pain or pressure. Denies shortness of breath. Blood pressure 112/53. Creatinine 2.89 today, down from 3.22. Potassium 2.5. 11/12/2020 Patient remains in atrial fibrillation with controlled ventricular rates. She remains on Eliquis. Denies chest pain or pressure. Denies shortness of breath. Blood pressure 95/56. 11/13/2020 Patient examined this morning at the bedside. She denies chest pain or pressure. Denies shortness of breath. She is currently undergoing her first session of hemodialysis. She remains in atrial fibrillation with controlled ventricular rates PHYSICAL EXAM: VITAL SIGNS: Reviewed. GENERAL: Well-developed in no acute distress. HEENT: Head is normocephalic. Pupils are equal, round. Sclerae anicteric. Mucous membranes of the mouth are moist. Neck supple. No JVD or thyromegaly LUNGS: Respirations even and unlabored. Lungs essentially clear to auscultation bilaterally. HEART: Irregular rate and rhythm. S1 and S2 heard. EXTREMITIES: Normal range of motion. No clubbing or cyanosis. Peripheral pulses intact. trace bilateral lower extremity edema ASSESSMENT: Nausea, vomiting, diarrhea New-onset atrial fibrillation Hypertension Hyperlipidemia Chronic kidney disease Hypokalemia, resolved PLAN: Continue Eliquis 2.5 mg twice a day Continue current dose of verapamil Continue telemetry monitoring Patient is stable from a cardiac standpoint We will sign off. Please reconsult if needed Nurse practitioner note has been reviewed by physician. Signing provider agrees with the documented findings, assessment, and plan of care. Objective - Vital Signs Vital signs: Vital Signs Temp 97.5 F L 11/13/20 08:19 Pulse 92 11/13/20 08:19 Resp 15 11/13/20 08:19 BP 119/66 11/13/20 08:19 Pulse Ox 96 11/13/20 08:19 Intake & Output 11/12/20 11/13/20 11/13/20 18:59 06:59 18:59 Intake Total 240 550 Output Total 3 1 1 Balance 237 549 -1 Weight 71.8 kg Intake: IV 500 Dextrose 5% in Water 1, 500 000 ml @ 100 mls/hr IV . [id number] DURAN with Sodium Bicarb (1 Meq/ml) 150 ml with Potassium Chloride 20 meq Rx#:[id number] Intake, IV Titration 50 Amount Cefepime 1 gm In Sodium 50 Chloride 0.9% 50 ml @ 12. 5 mls/hr IVPB DAILY@2200 DURAN Rx#:[id number] Oral 240 Output: Stool 3 1 1 Other: Voiding Method Toilet Toilet Toilet # Voids 1 # Bowel Movements 1 1 - Labs CBC & Chem 7: 11/13/20 07:43 11/13/20 07:43 Labs: Abnormal Lab Results - Last 24 Hours (Table) 11/13/20 11/13/20 Range/Units 07:43 07:43 WBC 13.4 H (3.8-10.6) k/uL RBC 3.20 L (3.80-5.40) m/uL Hgb 10.6 L (11.4-16.0) gm/dL Hct 33.2 L (34.0-46.0) % MCV 103.7 H (80.0-100.0) fL Neutrophils # 10.3 H (1.3-7.7) k/uL Monocytes # 1.4 H (0-1.0) k/uL BUN 52 H (7-17) mg/dL Creatinine 2.82 H (0.52-1.04) mg/dL Glucose 159 H (74-99) mg/dL Calcium 6.8 L (8.4-10.2) mg/dL Microbiology - Last 24 Hours (Table) 11/10/20 18:12 Stool Culture - Preliminary Stool
--- NOTE | 2020-11-13 11:07 | PN ---
PROGRESS NOTE Patient is seen for followup for chronic kidney disease and acute kidney injury. The patient has been started on dialysis. I discussed with her yesterday and she was agreeable. The patient has been maintained on IV fluids. Serum creatinine improved somewhat to about 2.8. However, patient started to have lower extremity edema. Given the generalized debility, persistent acidosis with recurrent admission for severe acidosis, once patient is off of the IV bicarb, it was decided to proceed with renal replacement therapy. The patient is currently seen on dialysis. She is tolerating her treatment well. AV graft is functional. PHYSICAL EXAMINATION: On examination today, blood pressure was 124/66, heart rate 92 per minute. She is afebrile. EXAMINATION OF THE HEART: S1, S2. EXAMINATION OF THE LUNGS: Bilateral breath sounds are heard. Abdomen is soft, nontender. Examination of lower extremities shows edema 1+ bilaterally more in the feet. PLASTIC DOLLS MOLD FILLER exam grossly intact. LABS: Labs show sodium 138, potassium 4.6, BUN 52, creatinine 2.8, hemoglobin 10.6 g/dL. ASSESSMENT: 1. Acute kidney injury, prerenal, somewhat improved with IV hydration. 2. Intractable metabolic acidosis with recurrent admissions for worsening acidosis once patient is off the IV bicarb. 3. Diarrhea, Clostridium difficile toxin is negative, etiology unclear. 4. Recent diagnosis of liver cirrhosis, cryptogenic. 5. Severe hypokalemia associated with gastrointestinal fluid loss, status post replacement. PLAN: Discontinue IV bicarb, change to Ringer lactate. Encourage increased oral intake. Set up for outpatient dialysis. MMODL / IJN: [id number] /
[2020-11-13] MEDS: CYANOCOBALAMIN 500 MCG TAB PO SCH (11:35)
[2020-11-13] MEDS: CHOLECALCIFEROL 25 MCG (1000 IU) TABLET PO SCH (11:35)
[2020-11-13] MEDS: FAMOTIDINE 20 MG TAB PO SCH (11:35)
[2020-11-13] MEDS: SODIUM BICARBONATE TAB 650 MG TAB PO SCH ×4 (11:35→22:29)
[2020-11-13] MEDS: APIXABAN 2.5 MG TABLET PO SCH ×2 (11:36→21:43)
[2020-11-13] MEDS: NYSTATIN 100,000 UNIT/ML SUSP 500,000 UNIT/5 ML CUP PO SCH ×4 (11:36→22:10)
[2020-11-13] MEDS: allopurinoL 100 MG TAB PO SCH (11:36)
[2020-11-13] MEDS: PARoxetine 20 MG TAB PO SCH (11:36)
[2020-11-13] MEDS: VIT A,C & E-LUTEIN-MINERALS 1 EACH TAB PO SCH ×2 (11:38→21:43)
[2020-11-13] MEDS: LOPERAMIDE 2 MG CAP PO PRN ×2 (13:14→23:18)
[2020-11-13 14:15] VITALS: BMI 28.0
[2020-11-13 16:16] LABS: Magnesium 1.7 mg/dL (1.6-2.3); Potassium 3.8 mmol/L (3.5-5.1)
--- NOTE | 2020-11-13 22:23 | P.PN ---
Subjective Progress Note Date: 11/12/20 Principal diagnosis: Nausea, vomiting, diarrhea Paroxysmal atrial fibrillation Acute on chronic kidney disease 80-year-old female presenting to the emergency Department with complaints of diarrhea but steadily increasing over the past few days. Patient was recently admitted one month ago for a liver failure and ascites. She has been seeing a Dr. Quiroz. Patient's daughter is here with her now is helping with history. Patient states ever since her hospital admission she has been dealing with diarrhea but over the past 3 days she has been feeling weaker, has been incontinent to diarrhea. She has not had an appetite, she feels intermittent nausea but no vomiting. No fevers or chills. She denies any pain anywhere including no chest pain or shortness of breath. No abdominal pain. Patient recently had a tooth pulled 3 days ago and then 2 days ago was started on amoxicillin. Patient feels like the antibiotic made things worse. Patient does have follow-up with Dr. Curran's office and patient has remained stable. Patient has no further complaints at this time. Upon arrival to the ER, her vital signs are stable. Workup in ED including an EKG revealed A. fib, left axis deviation, inferior infarct age undetermined with ventricular rate of 93; repeat EKG revealed normal sinus rhythm with occasional PVCs Blood work with chemical profile sodium 134, potassium 3.2, BUN of 60 to come a creatinine of 3.30; CBC with white blood count of 12.6 with normal lactic acid level, PT/INR of 15.7/1.6 Patient is admitted to the hospital for acute renal injury/dehydration and paroxysmal atrial fibrillation 11/09/2020 Patient is seen and evaluated sitting up in chair with daughter at bedside; continues to complain of several episodes of diarrhea; C. 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; await further recommendations from cardiology once echocardiogram is completed We will plan to consult GI for persistent diarrhea 11/10/2020 Patient is seen and evaluated with daughter at bedside; complains of burning and redness of time with pain while eating; continues to have episodes of diarrhea; hasn't been seen by GI service Nephrology following for 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 likely prerenal; creatinine slowly trending down at 3.2 this morning; severe metabolic acidosis due to renal failure; patient has been placed on IV bicarbonate infusion without any improvement in metabolic acidosis; nephrology recommending possible start of dialysis; patient and family will discuss and make a decision Cardiology is on board for MAT versus new onset atrial fibrillation; EKG this morning is more consistent with atrial fibrillation with controlled ventricular rate; echocardiogram reveals an EF of 55-60% with mild mitral regurg; cardiology recommending anticoagulation with Eliquis and patient has been placed on omar apamil 40 mg twice a day We will place patient on nystatin swish and swallow for oral thrush 11/11/2020 Patient is currently sitting in the chair. Awake alert and oriented. Denied any complaints of chest pain or shortness of breath. Patient remained on anticoagulation with Eliquis. Atrial fibrillation with controlled heart rate. No complaints of abdominal pain. Otherwise patient is still having diarrhea. Stool cultures showed no growth. Urine culture is growing gram-negative bacilli. Creatinine level improved to 2.89 today. Potassium is 2.5 which is being replaced. Patient has been afebrile. Laboratory data showed WBC 15.2 and hemoglobin 10.8 and MCV 103.4 Patient is currently being continued on D5 water at 100 cc/h. Cardiology, nephrology and GI is on board. Discussed with the patient's daughter at bedside in detail. 11/12/2020 Patient is currently lying in the bed. States that she feels very weak. Diarrhea is better today.. No complaints of abdominal pain. Tolerating oral diet. Patient remained in atrial fibrillation but rate is controlled. Blood pressure is low at 95/56. Laboratory showed WBC 13.3, hemoglobin 10.6 and platelets 160 Potassium level is 2.9 today BUN 52 and creatinine 2.83 and magnesium 1.6 Nephrology is planning for hemodialysis tomorrow. Current medications reviewed. Objective - Vital Signs Vital signs: Vital Signs Temp 97.6 F 11/12/20 04:00 Pulse 90 11/12/20 16:00 Resp 16 11/12/20 16:00 BP 111/42 11/12/20 16:00 Pulse Ox 99 11/12/20 16:00 Intake & Output 11/11/20 11/12/20 11/12/20 18:59 06:59 18:59 Intake Total 1016 660 Output Total 300 2 Balance 716 660 -2 Weight 69.6 kg Intake: Oral 1016 660 Output: Urine 300 Stool 2 Other: Voiding Method Toilet Toilet Toilet # Voids 1 1 1 # Bowel Movements 2 1 1 - Exam - Exam - Constitutional General appearance: Present: average body habitus, cooperative, no acute distress - EENT Eyes: Present: anicteric sclerae, EOMI, PERRLA, normal appearance ENT: Present: hearing grossly normal, normal oropharynx Ears: bilateral: normal - Neck Neck: Present: normal ROM. Absent: lymphadenopathy, rigidity, thyromegaly Carotids: negative: bruit present Thyroid: bilateral: normal size, negative: enlarged, nodule - Respiratory Respiratory: bilateral: CTA, negative: rales, rhonchi, wheezing - Cardiovascular Rhythm: regular Heart sounds: normal: S1, S2 Abnormal Heart Sounds: Absent: systolic murmur, diastolic murmur - Gastrointestinal General gastrointestinal: Present: normal bowel sounds, soft. Absent: distended, organomegaly, tenderness - Genitourinary Genitourinary Comment(s): deferred - Integumentary Integumentary: Present: normal turgor. Absent: jaundiced, rash, ulcer - Neurologic Neurologic: Present: CNII-XII intact. Absent: focal deficits - Musculoskeletal Musculoskeletal: Present: gait normal, strength equal bilaterally - Psychiatric Psychiatric: Present: A&O x's 3, appropriate affect, intact judgment & insight - Labs CBC & Chem 7: 11/13/20 07:43 11/13/20 15:34 Labs: Abnormal Lab Results - Last 24 Hours (Table) 11/12/20 11/12/20 Range/Units 06:25 06:25 WBC 13.3 H (3.8-10.6) k/uL RBC 3.26 L (3.80-5.40) m/uL Hgb 10.6 L (11.4-16.0) gm/dL Hct 33.8 L (34.0-46.0) % MCV 103.7 H (80.0-100.0) fL Neutrophils # 10.6 H (1.3-7.7) k/uL Monocytes # 1.2 H (0-1.0) k/uL Potassium 2.9 L (3.5-5.1) mmol/L Carbon Dioxide 20 L (22-30) mmol/L BUN 52 H (7-17) mg/dL Creatinine 2.83 H (0.52-1.04) mg/dL Glucose 113 H (74-99) mg/dL Calcium 6.7 L (8.4-10.2) mg/dL Microbiology - Last 24 Hours (Table) 11/09/20 12:29 Urine Culture - Final Urine,Voided Enterobacter cloacae Escherichia coli Assessment and Plan Assessment: 1. Acute on chronic kidney disease-4 - Patient is started on IV fluids . we will monitor strict ALLAN's, daily weights, renal function and electrolytes; avoid nephrotoxic agents; continue with sodium bicarbonate 1300 mg by mouth QID - Nephrology is following 2. Gram-negative bacilli urinary tract infection. Urine culture showed Enterobacter ProCare and E. coli. Antibiotics changed to cefepime. 2. Intractable nausea/vomiting/diarrhea; Possibly antibiotic induced - Patient is started on IV fluids; continue to monitor electrolytes and renal function; symptomatic treatment of nausea and vomiting Replace potassium due to severe hyperkalemia. 3. Hypotension/dehydration; secondary to #2; IV fluid hydration as indicated above 4. Leukocytosis; possibly reactive; patient is afebrile with normal lactic acid level; we will monitor CBC . 5. Paroxysmal atrial fibrillation; new onset; Patient is currently in atrial fibrillation but rate is controlled. Continued on verapamil and anticoagulation with Eliquis. 6. Vitamin B12 deficiency; continue with oral supplement thousand MCG daily 7. Vitamin D deficiency; vitamin D3 125 MCG daily DVT prophylaxis SCDs CODE STATUS; full code Time with Patient: Greater than 30
--- NOTE | 2020-11-13 22:26 | P.PN ---
Subjective Progress Note Date: 11/13/20 Principal diagnosis: Nausea, vomiting, diarrhea Paroxysmal atrial fibrillation Acute on chronic kidney disease 80-year-old female presenting to the emergency Department with complaints of diarrhea but steadily increasing over the past few days. Patient was recently admitted one month ago for a liver failure and ascites. She has been seeing a Dr. Quiroz. Patient's daughter is here with her now is helping with history. Patient states ever since her hospital admission she has been dealing with diarrhea but over the past 3 days she has been feeling weaker, has been incontinent to diarrhea. She has not had an appetite, she feels intermittent nausea but no vomiting. No fevers or chills. She denies any pain anywhere including no chest pain or shortness of breath. No abdominal pain. Patient recently had a tooth pulled 3 days ago and then 2 days ago was started on amoxicillin. Patient feels like the antibiotic made things worse. Patient does have follow-up with Dr. Curran's office and patient has remained stable. Patient has no further complaints at this time. Upon arrival to the ER, her vital signs are stable. Workup in ED including an EKG revealed A. fib, left axis deviation, inferior infarct age undetermined with ventricular rate of 93; repeat EKG revealed normal sinus rhythm with occasional PVCs Blood work with chemical profile sodium 134, potassium 3.2, BUN of 60 to come a creatinine of 3.30; CBC with white blood count of 12.6 with normal lactic acid level, PT/INR of 15.7/1.6 Patient is admitted to the hospital for acute renal injury/dehydration and paroxysmal atrial fibrillation 11/09/2020 Patient is seen and evaluated sitting up in chair with daughter at bedside; continues to complain of several episodes of diarrhea; C. 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 monitor worker; await further recommendations from cardiology once echocardiogram is completed We will plan to consult GI for persistent diarrhea 11/10/2020 Patient is seen and evaluated with daughter at bedside; complains of burning and redness of time with pain while eating; continues to have episodes of diarrhea; hasn't been seen by GI service Nephrology following for 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 likely prerenal; creatinine slowly trending down at 3.2 this morning; severe metabolic acidosis due to renal failure; patient has been placed on IV bicarbonate infusion without any improvement in metabolic acidosis; nephrology recommending possible start of dialysis; patient and family will discuss and make a decision Cardiology is on board for MAT versus new onset atrial fibrillation; EKG this morning is more consistent with atrial fibrillation with controlled ventricular rate; echocardiogram reveals an EF of 55-60% with mild mitral regurg; cardiology recommending anticoagulation with Eliquis and patient has been placed on omar apamil 40 mg twice a day We will place patient on nystatin swish and swallow for oral thrush 11/11/2020 Patient is currently sitting in the chair. Awake alert and oriented. Denied any complaints of chest pain or shortness of breath. Patient remained on anticoagulation with Eliquis. Atrial fibrillation with controlled heart rate. No complaints of abdominal pain. Otherwise patient is still having diarrhea. Stool cultures showed no growth. Urine culture is growing gram-negative bacilli. Creatinine level improved to 2.89 today. Potassium is 2.5 which is being replaced. Patient has been afebrile. Laboratory data showed WBC 15.2 and hemoglobin 10.8 and MCV 103.4 Patient is currently being continued on D5 water at 100 cc/h. Cardiology, nephrology and GI is on board. Discussed with the patient's daughter at bedside in detail. 11/12/2020 Patient is currently lying in the bed. States that she feels very weak. Diarrhea is better today.. No complaints of abdominal pain. Tolerating oral diet. Patient remained in atrial fibrillation but rate is controlled. Blood pressure is low at 95/56. Laboratory showed WBC 13.3, hemoglobin 10.6 and platelets 160 Potassium level is 2.9 today BUN 52 and creatinine 2.83 and magnesium 1.6 Nephrology is planning for hemodialysis tomorrow. 11/13/2020 Patient is currently sitting in a chair. No complaints of chest pain. Shortness of breath is improved. Patient was initiated on hemodialysis today. Blood pressure is stable at 111/60 and pulse ox 97% on room air. Patient continues to have diarrhea. C. difficile was negative. Leukocytosis is about the same at 13.4 and hemoglobin 10.6 potassium level improved to 4.6 and BUN 52 and creatinine 2.82. Patient remains on atrial fibrillation with controlled heart rate. Patient is also on antibiotics with all cefepime for urinary tract infection. Discussed patient's condition with her daughter at bedside in detail. Current medications reviewed. Objective - Vital Signs Vital signs: Vital Signs Temp 98 F 11/13/20 17:04 Pulse 96 11/13/20 17:04 Resp 16 11/13/20 17:04 BP 108/58 11/13/20 17:04 Pulse Ox 98 11/13/20 11:31 Intake & Output 11/12/20 11/13/20 11/13/20 18:59 06:59 18:59 Intake Total 240 550 480 Output Total 3 1 2 Balance 237 549 478 Weight 71.8 kg 71.8 kg Intake: IV 500 Dextrose 5% in Water 1, 500 000 ml @ 100 mls/hr IV . [id number] DURAN with Sodium Bicarb (1 Meq/ml) 150 ml with Potassium Chloride 20 meq Rx#:[id number] Intake, IV Titration 50 Amount Cefepime 1 gm In Sodium 50 Chloride 0.9% 50 ml @ 12. 5 mls/hr IVPB DAILY@2200 DURAN Rx#:[id number] Oral 240 480 Output: Stool 3 1 2 Hemodialysis 0 Other: Voiding Method Toilet Toilet Toilet # Voids 1 2 # Bowel Movements 1 1 2 - Exam - Exam - Constitutional General appearance: Present: average body habitus, cooperative, no acute distress - EENT Eyes: Present: anicteric sclerae, EOMI, PERRLA, normal appearance ENT: Present: hearing grossly normal, normal oropharynx Ears: bilateral: normal - Neck Neck: Present: normal ROM. Absent: lymphadenopathy, rigidity, thyromegaly Carotids: negative: bruit present Thyroid: bilateral: normal size, negative: enlarged, nodule - Respiratory Respiratory: bilateral: CTA, negative: rales, rhonchi, wheezing - Cardiovascular Rhythm: regular Heart sounds: normal: S1, S2 Abnormal Heart Sounds: Absent: systolic murmur, diastolic murmur - Gastrointestinal General gastrointestinal: Present: normal bowel sounds, soft. Absent: distended, organomegaly, tenderness - Genitourinary Genitourinary Comment(s): deferred - Integumentary Integumentary: Present: normal turgor. Absent: jaundiced, rash, ulcer - Neurologic Neurologic: Present: CNII-XII intact. Absent: focal deficits - Musculoskeletal Musculoskeletal: Present: gait normal, strength equal bilaterally - Psychiatric Psychiatric: Present: A&O x's 3, appropriate affect, intact judgment & insight - Labs CBC & Chem 7: 11/13/20 07:43 11/13/20 15:34 Labs: Abnormal Lab Results - Last 24 Hours (Table) 11/13/20 11/13/20 Range/Units 07:43 07:43 WBC 13.4 H (3.8-10.6) k/uL RBC 3.20 L (3.80-5.40) m/uL Hgb 10.6 L (11.4-16.0) gm/dL Hct 33.2 L (34.0-46.0) % MCV 103.7 H (80.0-100.0) fL Neutrophils # 10.3 H (1.3-7.7) k/uL Monocytes # 1.4 H (0-1.0) k/uL BUN 52 H (7-17) mg/dL Creatinine 2.82 H (0.52-1.04) mg/dL Glucose 159 H (74-99) mg/dL Calcium 6.8 L (8.4-10.2) mg/dL Microbiology - Last 24 Hours (Table) 11/10/20 18:12 Stool Culture - Preliminary Stool Assessment and Plan Assessment: 1. Acute on chronic kidney disease-4 - Patient is started on IV fluids . we will monitor strict ALLAN's, daily weights, renal function and electrolytes; avoid nephrotoxic agents; continue with sodium bicarbonate 1300 mg by mouth QID - Nephrology is following. Patient was initiated on hemodialysis on 11/13/2020 2. Gram-negative bacilli urinary tract infection. Urine culture showed Enterobacter ProCare and E. coli. Antibiotics changed to cefepime. 2. Intractable nausea/vomiting/diarrhea; Possibly antibiotic induced - Patient is started on IV fluids; continue to monitor electrolytes and renal function; symptomatic treatment of nausea and vomiting Replace potassium due to severe hyperkalemia. 3. Hypotension/dehydration; secondary to #2; IV fluid hydration as indicated above 4. Leukocytosis; possibly reactive; patient is afebrile with normal lactic acid level; we will monitor CBC . 5. Paroxysmal atrial fibrillation; new onset; Patient is currently in atrial fibrillation but rate is controlled. Continued on verapamil and anticoagulation with Eliquis. 6. Vitamin B12 deficiency; continue with oral supplement thousand MCG daily 7. Vitamin D deficiency; vitamin D3 125 MCG daily DVT prophylaxis SCDs CODE STATUS; full code Time with Patient: Greater than 30
[2020-11-13] MEDS: CEFEPIME 1 GM in SODIUM CHLORIDE 0.9% 50 ML IVPB SCH (22:29)
[2020-11-14] MEDS: MIDODRINE 5 MG TAB PO SCH ×3 (06:34→17:31)
[2020-11-14] MEDS: LACTATED RINGERS 1,000 ML IV SCH (06:34)
[2020-11-14] MEDS: NYSTATIN 100,000 UNIT/ML SUSP 500,000 UNIT/5 ML CUP PO SCH ×4 (09:06→20:52)
[2020-11-14 10:34] LABS: Basophils % (A) 0 %; Eosinophils # (A) 0.1 k/uL (0-0.7); Eosinophils % (A) 1 %; HCT 32.2 % (34.0-46.0); Hypochromasia Moderate; Lymphocytes # (A) 1.2 k/uL (1.0-4.8); Lymphocytes % (A) 10 %; MCH 32.1 pg (25.0-35.0); MCV 103.5 fL (80.0-100.0); Macrocytosis Slight; Mean Platelet Volume 7.9; Monocytes % (A) 8 %; Neutrophils # (A) 10.1 k/uL (1.3-7.7); Neutrophils % (A) 80 %; Platelet Count 160 k/uL (150-450); RBC 3.12 m/uL (3.80-5.40); RDW 14.6 % (11.5-15.5); WBC 12.7 k/uL (3.8-10.6)
[2020-11-14 10:59] LABS: Calcium 7.2 mg/dL (8.4-10.2); Potassium 3.6 mmol/L (3.5-5.1)
[2020-11-14] MEDS: CHOLECALCIFEROL 25 MCG (1000 IU) TABLET PO SCH (12:07)
[2020-11-14] MEDS: FAMOTIDINE 20 MG TAB PO SCH (12:07)
[2020-11-14] MEDS: PARoxetine 20 MG TAB PO SCH (12:07)
[2020-11-14] MEDS: SODIUM BICARBONATE TAB 650 MG TAB PO SCH ×4 (12:07→20:43)
[2020-11-14] MEDS: CYANOCOBALAMIN 500 MCG TAB PO SCH (12:07)
[2020-11-14] MEDS: allopurinoL 100 MG TAB PO SCH (12:08)
[2020-11-14] MEDS: VIT A,C & E-LUTEIN-MINERALS 1 EACH TAB PO SCH ×2 (12:09→20:51)
[2020-11-14] MEDS: APIXABAN 2.5 MG TABLET PO SCH ×2 (12:10→20:43)
[2020-11-14] MEDS: VERAPAMIL SR 120 MG TABLET.ER PO SCH (12:10)
--- NOTE | 2020-11-14 16:28 | PN ---
PROGRESS NOTE The patient is seen for followup for chronic kidney disease. She continues to have diarrhea. Patient was started on dialysis. She is having a second treatment. Overall she does not feel significantly improved. All the tests for diarrhea workup are negative thus far. The patient states she has not been eating much. PHYSICAL EXAMINATION: Blood pressure this morning was 107/58, heart rate 87 per minute. She is afebrile. EXAMINATION OF THE HEART: S1, S2. EXAMINATION OF THE LUNGS: Bilateral breath sounds are heard. Abdomen is soft, nontender. Examination of lower extremities shows edema trace bilaterally. [employer] exam grossly intact. There is distention of the abdomen with ascites noted as well. LABS: Labs show sodium 137, potassium 3.6, chloride 105, CO2 is 24, BUN 31, creatinine 1.83, hemoglobin 10.0 g/dL. ASSESSMENT: 1. Chronic kidney disease stage 4 to 5, started dialysis this admission mostly for persistent/intractable acidosis; however, there was component of acidosis from the diarrhea as well. The patient has also had significant debility and decreased appetite. Therefore, there was concern for possible underlying subtle uremia. This morning patient does not feel much improved after 2 treatments. I will hold off on dialysis tomorrow. 2. Hypokalemia associated with gastrointestinal fluid loss and IV bicarb, currently improved. 3. Chronic liver disease, recent diagnosis cryptogenic liver cirrhosis. 4. Diarrhea, unclear etiology. So far, workup is negative. The patient is being followed by GI. 5. Anemia of chronic disease. 6. Chronic kidney disease mineral bone disorder, maintained on calcitriol. 7. Metabolic acidosis associated with diarrhea as well as chronic kidney disease off of IV bicarb. Maintained on oral sodium bicarb. PLAN: Hold dialysis in a.m. Encourage increased oral intake. Repeat labs in a.m. MMODL / IJN: [id number] /
[2020-11-14] MEDS ORDERED: POTASSIUM CHLORIDE ER 20 MEQ TAB.ER PO SCH (20:00)
[2020-11-15] MEDS: LACTATED RINGERS 1,000 ML IV SCH (06:07)
[2020-11-15] MEDS: MIDODRINE 5 MG TAB PO SCH ×3 (06:46→17:23)
[2020-11-15 10:09] LABS: Calcium 7.4 mg/dL (8.4-10.2); Potassium 4.5 mmol/L (3.5-5.1)
[2020-11-15] MEDS: SODIUM BICARBONATE TAB 650 MG TAB PO SCH ×2 (10:51→14:28)
[2020-11-15] MEDS: NYSTATIN 100,000 UNIT/ML SUSP 500,000 UNIT/5 ML CUP PO SCH ×4 (10:51→20:44)
[2020-11-15] MEDS: CYANOCOBALAMIN 500 MCG TAB PO SCH (10:51)
[2020-11-15] MEDS: FAMOTIDINE 20 MG TAB PO SCH (10:52)
[2020-11-15] MEDS: APIXABAN 2.5 MG TABLET PO SCH ×2 (10:52→20:44)
[2020-11-15] MEDS: allopurinoL 100 MG TAB PO SCH (10:52)
[2020-11-15] MEDS: CHOLECALCIFEROL 25 MCG (1000 IU) TABLET PO SCH (10:52)
[2020-11-15] MEDS: VERAPAMIL SR 120 MG TABLET.ER PO SCH (10:52)
[2020-11-15] MEDS: PARoxetine 20 MG TAB PO SCH (10:52)
[2020-11-15] MEDS: VIT A,C & E-LUTEIN-MINERALS 1 EACH TAB PO SCH ×2 (10:52→20:44)
--- NOTE | 2020-11-15 16:31 | PN ---
PROGRESS NOTE Patient is seen for followup for chronic kidney disease, currently end-stage renal disease started on hemodialysis 3 days ago. Patient was initially admitted to the hospital with diarrhea, nausea and vomiting, decreased oral intake and severe acidosis. She has had previous admissions for similar complaints and improved with IV hydration and IV bicarb. However, once patient is discharged, she did become severely acidotic. Even though she states that she has been compliant with her sodium bicarb tablets. Definitely the diarrhea had contributed to her acidosis. The patient had continued to feel poorly with development of volume overload and therefore she was started on dialysis this admission. She has received 2 treatments and will be scheduled for her third treatment tomorrow. 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 Overall, patient is feeling slightly better. All tests for diarrhea workup are currently negative. Ensure is being held and there is some improvement in the diarrhea. Oral intake is somewhat improved. PHYSICAL EXAMINATION: On examination today, blood pressure is 129/64, heart rate 76 per minute. She is afebrile. EXAMINATION OF THE HEART: S1, S2. EXAMINATION OF THE LUNGS: Bilateral breath sounds are heard. Abdomen is soft, nontender, distended. Ascites noted. Examination of lower extremities shows edema 2+ bilaterally. EMERGENCY MANAGEMENT SYSTEM DIRECTOR exam grossly intact. LABS: Labs show sodium 134, potassium 4.5, chloride 103, CO2 is 24, BUN 34, creatinine 1.89. ASSESSMENT: 1. Chronic kidney disease stage 5, started on dialysis this admission. Patient has had 2 treatments. She will be scheduled for her third treatment tomorrow, although serum creatinine stayed around 3, which was her baseline. Patient has had intractable acidosis and generalized debility with poor oral intake with possibility of underlying subtle uremia and therefore she was started on dialysis this admission. The patient has tolerated 2 treatments quite well. We did not remove much fluid. She will be scheduled for her third treatment tomorrow with UF of about a liter. 2. Metabolic acidosis associated with diarrhea as well as renal failure, improved post initiation of dialysis. 3. Diarrhea workup so far negative. It is not new. Patient has been evaluated by GI previously. The symptoms are somewhat better once the Ensure was held. 4. Recent diagnosis of chronic liver disease, possibly cryptogenic liver cirrhosis. 5. Generalized debility, decreased oral intake. 6. Mild volume overload. PLAN: Hemodialysis in a.m., UF of about about 1 L. Decrease sodium bicarbonate tabs. Replace potassium. Repeat labs in a.m. MMODL / IJN: [id number] /
[2020-11-16] MEDS: MIDODRINE 5 MG TAB PO SCH ×3 (06:42→17:35)
[2020-11-16 08:15] LABS: Calcium 7.4 mg/dL (8.4-10.2); Potassium 4.7 mmol/L (3.5-5.1)
[2020-11-16 08:22] LABS: Basophils # (A) 0.1 k/uL (0-0.2); Basophils % (A) 0 %; Eosinophils # (A) 0.2 k/uL (0-0.7); Eosinophils % (A) 1 %; HGB 10.7 gm/dL (11.4-16.0); Hypochromasia Moderate; Lymphocytes # (A) 1.6 k/uL (1.0-4.8); Lymphocytes % (A) 9 %; MCH 31.9 pg (25.0-35.0); MCHC 30.5 g/dL (31.0-37.0); MCV 104.7 fL (80.0-100.0); Macrocytosis Moderate; Mean Platelet Volume 8.3; Monocytes # (A) 1.5 k/uL (0-1.0); Monocytes % (A) 9 %; Neutrophils # (A) 13.8 k/uL (1.3-7.7); Neutrophils % (A) 80 %; Platelet Count 185 k/uL (150-450); RBC 3.34 m/uL (3.80-5.40); RDW 14.2 % (11.5-15.5); WBC 17.4 k/uL (3.8-10.6)
[2020-11-16] MEDS: CYANOCOBALAMIN 500 MCG TAB PO SCH (09:27)
[2020-11-16] MEDS: allopurinoL 100 MG TAB PO SCH (09:27)
[2020-11-16] MEDS: APIXABAN 2.5 MG TABLET PO SCH ×2 (09:28→20:07)
[2020-11-16] MEDS: SODIUM BICARBONATE TAB 650 MG TAB PO SCH (09:28)
[2020-11-16] MEDS: PARoxetine 20 MG TAB PO SCH (09:28)
[2020-11-16] MEDS: VIT A,C & E-LUTEIN-MINERALS 1 EACH TAB PO SCH ×2 (09:29→20:07)
[2020-11-16] MEDS: FAMOTIDINE 20 MG TAB PO SCH (09:29)
[2020-11-16] MEDS: CHOLECALCIFEROL 25 MCG (1000 IU) TABLET PO SCH (09:29)
[2020-11-16] MEDS: VERAPAMIL SR 120 MG TABLET.ER PO SCH ×3 (09:29→21:08)
[2020-11-16] MEDS: NYSTATIN 100,000 UNIT/ML SUSP 500,000 UNIT/5 ML CUP PO SCH ×4 (09:29→20:06)
--- NOTE | 2020-11-16 09:46 | P.PN ---
Subjective Progress Note Date: 11/16/20 Principal diagnosis: This is a 80-year-old female seen in consultation Acute kidney injury and chronic kidney disease. She was started on dialysis because of severe acidosis last dialysis was 2 days ago. She is supposedly on dialysis schedule today. She has a left upper arm graft. 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 This had gotten worse and now is back to normal actually her bowel movements are much less than her usual. She says her usual is about 8-10 a day. Her appetite is slightly better but still profoundly weak. No nausea vomiting. Recently she has been diagnosed with cirrhosis, cause not clear. Past history is significant for atrial fibrillation, Objective - Vital Signs Vital signs: Vital Signs Temp 97.7 F 11/16/20 08:00 Pulse 71 11/16/20 08:00 Resp 16 11/16/20 08:00 BP 122/58 11/16/20 08:00 Pulse Ox 97 11/16/20 08:00 Intake & Output 11/15/20 11/16/20 11/16/20 18:59 06:59 18:59 Intake Total 220 60 Balance 220 60 Weight 74.1 kg Intake: Oral 220 60 Other: Voiding Method Toilet Toilet Diaper # Voids 2 1 1 # Bowel Movements 1 1 Examination she is awake alert but profoundly weak and somewhat pale HEENT exam no JVP neck is supple no facial asymmetry Lungs are clear auscultation occasional crackles crackle at bases Heart sounds unremarkable for any murmur rub gallop she is in A. fib fi brillation Abdomen soft nontender slightly protuberant Extremity exam was mild edema Neurologically awake alert oriented but profoundly weak - Labs CBC & Chem 7: 11/16/20 06:55 11/16/20 06:55 Labs: Abnormal Lab Results - Last 24 Hours (Table) 11/15/20 11/16/20 11/16/20 Range/Units 09:40 06:55 06:55 WBC 17.4 H (3.8-10.6) k/uL RBC 3.34 L (3.80-5.40) m/uL Hgb 10.7 L (11.4-16.0) gm/dL MCV 104.7 H (80.0-100.0) fL MCHC 30.5 L (31.0-37.0) g/dL Neutrophils # 13.8 H (1.3-7.7) k/uL Monocytes # 1.5 H (0-1.0) k/uL Sodium 134 L 132 L (137-145) mmol/L BUN 34 H 41 H (7-17) mg/dL Creatinine 1.89 H 2.18 H (0.52-1.04) mg/dL Calcium 7.4 L 7.4 L (8.4-10.2) mg/dL Assessment and Plan Assessment: Impression 1. Severe acidosis secondary to diarrhea and chronic kidney disease, started on dialysis with resolution of acidosis. Bicarb is 26 2. Chronic kidney disease, stage IV- V, GFR is 12- 15 mL per minute secondary to nephrosclerosis Baseline creatinine 2.8, 3. 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 4. Profound weakness. Hemoglobin is 10.7. 5. Liver cirrhosis cryptogenic, no ascites clinically. 6. History of atrial fibrillation, ejection fraction is 55-60% on echocardiogram this admission Recommendation 1. Will dialyze today for 3 hours with ultrafiltration of about 1 L if tolerated. 2. We'll change the verapamil dosage to at night so that she can be dialyzed without hypotension if possible. 3. Maintain Midrin for right now
[2020-11-16] MEDS: CEFEPIME 1 GM in SODIUM CHLORIDE 0.9% 50 ML IVPB SCH ×2 (12:30→22:43)
--- NOTE | 2020-11-16 17:55 | US ---
EXAMINATION TYPE: US abdomen limited DATE OF EXAM: 11/16/2020 COMPARISON: NONE CLINICAL HISTORY: Ascites. TECHNIQUE/FINDINGS: All four quadrants are scanned and contain small amount of free fluid. Some of th e pockets are honeycombed. IMPRESSION: Small volume partially loculated ascites.
[2020-11-16] MEDS ORDERED: FUROSEMIDE 10 MG/ML 2 ML VIAL IV ONE (18:23)
--- NOTE | 2020-11-16 18:51 | XR ---
EXAMINATION TYPE: XR chest 1V portable DATE OF EXAM: 11/16/2020 COMPARISON: 11/08/2020. HISTORY: Shortness of breath. TECHNIQUE: Single frontal view of the chest is obtained. FINDINGS: There is moderate pulmonary edema with associated hazy opacities and small right pleural e ffusion. No pneumothorax. The cardiac silhouette size is enlarged. The osseous structures are inta ct. IMPRESSION: CHF with small right pleural effusion.
--- NOTE | 2020-11-16 22:00 | P.PN ---
Subjective Progress Note Date: 11/14/20 Principal diagnosis: Nausea, vomiting, diarrhea Paroxysmal atrial fibrillation Acute on chronic kidney disease 80-year-old female presenting to the emergency Department with complaints of diarrhea but steadily increasing over the past few days. Patient was recently admitted one month ago for a liver failure and ascites. She has been seeing a Dr. Quiroz. Patient's daughter is here with her now is helping with history. Patient states ever since her hospital admission she has been dealing with diarrhea but over the past 3 days she has been feeling weaker, has been incontinent to diarrhea. She has not had an appetite, she feels intermittent nausea but no vomiting. No fevers or chills. She denies any pain anywhere including no chest pain or shortness of breath. No abdominal pain. Patient recently had a tooth pulled 3 days ago and then 2 days ago was started on amoxicillin. Patient feels like the antibiotic made things worse. Patient does have follow-up with Dr. Curran's office and patient has remained stable. Patient has no further complaints at this time. Upon arrival to the ER, her vital signs are stable. Workup in ED including an EKG revealed A. fib, left axis deviation, inferior infarct age undetermined with ventricular rate of 93; repeat EKG revealed normal sinus rhythm with occasional PVCs Blood work with chemical profile sodium 134, potassium 3.2, BUN of 60 to come a creatinine of 3.30; CBC with white blood count of 12.6 with normal lactic acid level, PT/INR of 15.7/1.6 Patient is admitted to the hospital for acute renal injury/dehydration and paroxysmal atrial fibrillation 11/09/2020 Patient is seen and evaluated sitting up in chair with daughter at bedside; continues to complain of several episodes of diarrhea; C. 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; await further recommendations from cardiology once echocardiogram is completed We will plan to consult GI for persistent diarrhea 11/10/2020 Patient is seen and evaluated with daughter at bedside; complains of burning and redness of time with pain while eating; continues to have episodes of diarrhea; hasn't been seen by GI service Nephrology following for 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 likely prerenal; creatinine slowly trending down at 3.2 this morning; severe metabolic acidosis due to renal failure; patient has been placed on IV bicarbonate infusion without any improvement in metabolic acidosis; nephrology recommending possible start of dialysis; patient and family will discuss and make a decision Cardiology is on board for MAT versus new onset atrial fibrillation; EKG this morning is more consistent with atrial fibrillation with controlled ventricular rate; echocardiogram reveals an EF of 55-60% with mild mitral regurg; cardiology recommending anticoagulation with Eliquis and patient has been placed on omar apamil 40 mg twice a day We will place patient on nystatin swish and swallow for oral thrush 11/11/2020 Patient is currently sitting in the chair. Awake alert and oriented. Denied any complaints of chest pain or shortness of breath. Patient remained on anticoagulation with Eliquis. Atrial fibrillation with controlled heart rate. No complaints of abdominal pain. Otherwise patient is still having diarrhea. Stool cultures showed no growth. Urine culture is growing gram-negative bacilli. Creatinine level improved to 2.89 today. Potassium is 2.5 which is being replaced. Patient has been afebrile. Laboratory data showed WBC 15.2 and hemoglobin 10.8 and MCV 103.4 Patient is currently being continued on D5 water at 100 cc/h. Cardiology, nephrology and GI is on board. Discussed with the patient's daughter at bedside in detail. 11/12/2020 Patient is currently lying in the bed. States that she feels very weak. Diarrhea is better today.. No complaints of abdominal pain. Tolerating oral diet. Patient remained in atrial fibrillation but rate is controlled. Blood pressure is low at 95/56. Laboratory showed WBC 13.3, hemoglobin 10.6 and platelets 160 Potassium level is 2.9 today BUN 52 and creatinine 2.83 and magnesium 1.6 Nephrology is planning for hemodialysis tomorrow. 11/13/2020 Patient is currently sitting in a chair. No complaints of chest pain. Shortness of breath is improved. Patient was initiated on hemodialysis today. Blood pressure is stable at 111/60 and pulse ox 97% on room air. Patient continues to have diarrhea. C. difficile was negative. Leukocytosis is about the same at 13.4 and hemoglobin 10.6 potassium level improved to 4.6 and BUN 52 and creatinine 2.82. Patient remains on atrial fibrillation with controlled heart rate. Patient is also on antibiotics with all cefepime for urinary tract infection. Discussed patient's condition with her daughter at bedside in detail. 11/14/2020 Patient is currently sitting in the chair. Denies any complaints of chest pain. Shortness of breath is stable. Patient did have hemodialysis. Complains of nausea and not eating well. Patient is complaining of diarrhea which is improving now. Cultures have been negative. Patient has been afebrile. Patient remains on anticoagulation and atrial fibrillation rate is controlled. No complaints of abdominal pain. No dizziness or lightheadedness. Discussed with her daughter at bedside in detail. Current medications reviewed. Objective - Vital Signs Vital signs: Vital Signs Temp 98.0 F 11/14/20 16:00 Pulse 58 L 11/14/20 16:00 Resp 16 11/14/20 16:00 BP 115/64 11/14/20 16:00 Pulse Ox 98 11/14/20 16:00 Intake & Output 11/13/20 11/14/20 11/14/20 18:59 06:59 18:59 Intake Total 480 240 240 Output Total 2 2 1 Balance 478 238 239 Weight 71.8 kg 71.8 kg Intake: Oral 480 240 240 Output: Stool 2 2 1 Hemodialysis 0 Other: Voiding Method Diaper Diaper Diaper # Voids 2 1 # Bowel Movements 2 2 1 - Exam - Exam - Constitutional General appearance: Present: average body habitus, cooperative, no acute distress - EENT Eyes: Present: anicteric sclerae, EOMI, PERRLA, normal appearance ENT: Present: hearing grossly normal, normal oropharynx Ears: bilateral: normal - Neck Neck: Present: normal ROM. Absent: lymphadenopathy, rigidity, thyromegaly Carotids: negative: bruit present Thyroid: bilateral: normal size, negative: enlarged, nodule - Respiratory Respiratory: bilateral: CTA, negative: rales, rhonchi, wheezing - Cardiovascular Rhythm: regular Heart sounds: normal: S1, S2 Abnormal Heart Sounds: Absent: systolic murmur, diastolic murmur - Gastrointestinal General gastrointestinal: Present: normal bowel sounds, soft. Absent: distended, organomegaly, tenderness - Genitourinary Genitourinary Comment(s): deferred - Integumentary Integumentary: Present: normal turgor. Absent: jaundiced, rash, ulcer - Neurologic Neurologic: Present: CNII-XII intact. Absent: focal deficits - Musculoskeletal Musculoskeletal: Present: gait normal, strength equal bilaterally - Psychiatric Psychiatric: Present: A&O x's 3, appropriate affect, intact judgment & insight - Labs CBC & Chem 7: 11/16/20 06:55 11/16/20 06:55 Labs: Abnormal Lab Results - Last 24 Hours (Table) 11/14/20 11/14/20 Range/Units 10:00 10:00 WBC 12.7 H (3.8-10.6) k/uL RBC 3.12 L (3.80-5.40) m/uL Hgb 10.0 L (11.4-16.0) gm/dL Hct 32.2 L (34.0-46.0) % MCV 103.5 H (80.0-100.0) fL Neutrophils # 10.1 H (1.3-7.7) k/uL BUN 31 H (7-17) mg/dL Creatinine 1.83 H (0.52-1.04) mg/dL Glucose 101 H (74-99) mg/dL Calcium 7.2 L (8.4-10.2) mg/dL Microbiology - Last 24 Hours (Table) 11/10/20 18:12 Stool Culture - Final Stool Assessment and Plan Assessment: 1. Acute on chronic kidney disease-4 - Patient is started on IV fluids . we will monitor strict ALLAN's, daily weights, renal function and electrolytes; avoid nephrotoxic agents; continue with sodium bicarbonate 1300 mg by mouth QID - Nephrology is following. Patient was initiated on hemodialysis on 11/13/2020 2. Gram-negative bacilli urinary tract infection. Urine culture showed Enterobacter ProCare and E. coli. Antibiotics changed to cefepime. 2. Intractable nausea/vomiting/diarrhea; Possibly antibiotic induced - Patient is started on IV fluids; continue to monitor electrolytes and renal function; symptomatic treatment of nausea and vomiting Replace potassium due to severe hyperkalemia. 3. Hypotension/dehydration; secondary to #2; IV fluid hydration as indicated above 4. Leukocytosis; possibly reactive; patient is afebrile with normal lactic acid level; we will monitor CBC . 5. Paroxysmal atrial fibrillation; new onset; Patient is currently in atrial fibrillation but rate is controlled. Continued on verapamil and anticoagulation with Eliquis. 6. Vitamin B12 deficiency; continue with oral supplement thousand MCG daily 7. Vitamin D deficiency; vitamin D3 125 MCG daily DVT prophylaxis SCDs CODE STATUS; full code Time with Patient: Greater than 30
--- NOTE | 2020-11-16 22:06 | P.PN ---
Subjective Progress Note Date: 11/15/20 Principal diagnosis: Nausea, vomiting, diarrhea Paroxysmal atrial fibrillation Acute on chronic kidney disease 80-year-old female presenting to the emergency Department with complaints of diarrhea but steadily increasing over the past few days. Patient was recently admitted one month ago for a liver failure and ascites. She has been seeing a Dr. Quiroz. Patient's daughter is here with her now is helping with history. Patient states ever since her hospital admission she has been dealing with diarrhea but over the past 3 days she has been feeling weaker, has been incontinent to diarrhea. She has not had an appetite, she feels intermittent nausea but no vomiting. No fevers or chills. She denies any pain anywhere including no chest pain or shortness of breath. No abdominal pain. Patient recently had a tooth pulled 3 days ago and then 2 days ago was started on amoxicillin. Patient feels like the antibiotic made things worse. Patient does have follow-up with Dr. Curran's office and patient has remained stable. Patient has no further complaints at this time. Upon arrival to the ER, her vital signs are stable. Workup in ED including an EKG revealed A. fib, left axis deviation, inferior infarct age undetermined with ventricular rate of 93; repeat EKG revealed normal sinus rhythm with occasional PVCs Blood work with chemical profile sodium 134, potassium 3.2, BUN of 60 to come a creatinine of 3.30; CBC with white blood count of 12.6 with normal lactic acid level, PT/INR of 15.7/1.6 Patient is admitted to the hospital for acute renal injury/dehydration and paroxysmal atrial fibrillation 11/09/2020 Patient is seen and evaluated sitting up in chair with daughter at bedside; continues to complain of several episodes of diarrhea; C. 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; await further recommendations from cardiology once echocardiogram is completed We will plan to consult GI for persistent diarrhea 11/10/2020 Patient is seen and evaluated with daughter at bedside; complains of burning and redness of time with pain while eating; continues to have episodes of diarrhea; hasn't been seen by GI service Nephrology following for 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 likely prerenal; creatinine slowly trending down at 3.2 this morning; severe metabolic acidosis due to renal failure; patient has been placed on IV bicarbonate infusion without any improvement in metabolic acidosis; nephrology recommending possible start of dialysis; patient and family will discuss and make a decision Cardiology is on board for MAT versus new onset atrial fibrillation; EKG this morning is more consistent with atrial fibrillation with controlled ventricular rate; echocardiogram reveals an EF of 55-60% with mild mitral regurg; cardiology recommending anticoagulation with Eliquis and patient has been placed on omar apamil 40 mg twice a day We will place patient on nystatin swish and swallow for oral thrush 11/11/2020 Patient is currently sitting in the chair. Awake alert and oriented. Denied any complaints of chest pain or shortness of breath. Patient remained on anticoagulation with Eliquis. Atrial fibrillation with controlled heart rate. No complaints of abdominal pain. Otherwise patient is still having diarrhea. Stool cultures showed no growth. Urine culture is growing gram-negative bacilli. Creatinine level improved to 2.89 today. Potassium is 2.5 which is being replaced. Patient has been afebrile. Laboratory data showed WBC 15.2 and hemoglobin 10.8 and MCV 103.4 Patient is currently being continued on D5 water at 100 cc/h. Cardiology, nephrology and GI is on board. Discussed with the patient's daughter at bedside in detail. 11/12/2020 Patient is currently lying in the bed. States that she feels very weak. Diarrhea is better today.. No complaints of abdominal pain. Tolerating oral diet. Patient remained in atrial fibrillation but rate is controlled. Blood pressure is low at 95/56. Laboratory showed WBC 13.3, hemoglobin 10.6 and platelets 160 Potassium level is 2.9 today BUN 52 and creatinine 2.83 and magnesium 1.6 Nephrology is planning for hemodialysis tomorrow. 11/13/2020 Patient is currently sitting in a chair. No complaints of chest pain. Shortness of breath is improved. Patient was initiated on hemodialysis today. Blood pressure is stable at 111/60 and pulse ox 97% on room air. Patient continues to have diarrhea. C. difficile was negative. Leukocytosis is about the same at 13.4 and hemoglobin 10.6 potassium level improved to 4.6 and BUN 52 and creatinine 2.82. Patient remains on atrial fibrillation with controlled heart rate. Patient is also on antibiotics with all cefepime for urinary tract infection. Discussed patient's condition with her daughter at bedside in detail. 11/14/2020 Patient is currently sitting in the chair. Denies any complaints of chest pain. Shortness of breath is stable. Patient did have hemodialysis. Complains of nausea and not eating well. Patient is complaining of diarrhea which is improving now. Cultures have been negative. Patient has been afebrile. Patient remains on anticoagulation and atrial fibrillation rate is controlled. No complaints of abdominal pain. No dizziness or lightheadedness. Discussed with her daughter at bedside in detail. 11/15/2020 Patient is currently resting in the bed. No complaints of chest pain. Patient states that her diarrhea is better and she did not have any bowel movement since morning. No complaints of abdominal pain. No dysuria. Patient has been afebrile. Laboratory data showed WBC 12.67, hemoglobin 10.0, BUN 34 and creatinine 1.89 and calcium level is 7.4 Renal function remains stable. Next hemodialysis is tomorrow. Nephrology is on board. Current medications reviewed. Objective - Vital Signs Vital signs: Vital Signs Temp 97.0 F L 11/15/20 19:57 Pulse 78 11/15/20 20:00 Resp 16 11/15/20 20:00 BP 118/61 11/15/20 19:57 Pulse Ox 97 11/15/20 19:57 Intake & Output 11/15/20 11/15/20 11/16/20 06:59 18:59 06:59 Intake Total 400 220 Balance 400 220 Weight 72.3 kg Intake: Intake, IV Titration 400 Amount Lactated Ringers 1,000 ml 400 @ 50 mls/hr IV .[facility] Rx#:[id number] Oral 220 Other: Voiding Method Diaper Toilet Toilet # Voids 1 2 1 - Exam - Exam - Constitutional General appearance: Present: average body habitus, cooperative, no acute distress - EENT Eyes: Present: anicteric sclerae, EOMI, PERRLA, normal appearance ENT: Present: hearing grossly normal, normal oropharynx Ears: bilateral: normal - Neck Neck: Present: normal ROM. Absent: lymphadenopathy, rigidity, thyromegaly Carotids: negative: bruit present Thyroid: bilateral: normal size, negative: enlarged, nodule - Respiratory Respiratory: bilateral: CTA, negative: rales, rhonchi, wheezing - Cardiovascular Rhythm: regular Heart sounds: normal: S1, S2 Abnormal Heart Sounds: Absent: systolic murmur, diastolic murmur - Gastrointestinal General gastrointestinal: Present: normal bowel sounds, soft. Absent: distended, organomegaly, tenderness - Genitourinary Genitourinary Comment(s): deferred - Integumentary Integumentary: Present: normal turgor. Absent: jaundiced, rash, ulcer - Neurologic Neurologic: Present: CNII-XII intact. Absent: focal deficits - Musculoskeletal Musculoskeletal: Present: gait normal, strength equal bilaterally - Psychiatric Psychiatric: Present: A&O x's 3, appropriate affect, intact judgment & insight - Labs CBC & Chem 7: 11/16/20 06:55 11/16/20 06:55 Labs: Abnormal Lab Results - Last 24 Hours (Table) 11/15/20 Range/Units 09:40 Sodium 134 L (137-145) mmol/L BUN 34 H (7-17) mg/dL Creatinine 1.89 H (0.52-1.04) mg/dL Calcium 7.4 L (8.4-10.2) mg/dL Assessment and Plan Assessment: 1. Acute on chronic kidney disease-4 - Patient is started on IV fluids . we will monitor strict ALLAN's, daily weights, renal function and electrolytes; avoid nephrotoxic agents; continue with sodium bicarbonate 1300 mg by mouth QID - Nephrology is following. Patient was initiated on hemodialysis on 11/13/2020 - 2. Gram-negative bacilli urinary tract infection. Urine culture showed Enterobacter ProCare and E. coli. Antibiotics changed to cefepime. 2. Intractable nausea/vomiting/diarrhea; Possibly antibiotic induced - Patient is started on IV fluids; continue to monitor electrolytes and renal function; symptomatic treatment of nausea and vomiting Replace potassium due to severe hyperkalemia. 3. Hypotension/dehydration; secondary to #2; IV fluid hydration as indicated above 4. Leukocytosis; possibly reactive; patient is afebrile with normal lactic acid level; we will monitor CBC . 5. Paroxysmal atrial fibrillation; new onset; Patient is currently in atrial fibrillation but rate is controlled. Continued on verapamil and anticoagulation with Eliquis. 6. Vitamin B12 deficiency; continue with oral supplement thousand MCG daily 7. Vitamin D deficiency; vitamin D3 125 MCG daily DVT prophylaxis SCDs CODE STATUS; full code Time with Patient: Greater than 30
--- NOTE | 2020-11-16 22:07 | P.PN ---
Subjective Progress Note Date: 11/16/20 Principal diagnosis: Nausea, vomiting, diarrhea Paroxysmal atrial fibrillation Acute on chronic kidney disease 80-year-old female presenting to the emergency Department with complaints of diarrhea but steadily increasing over the past few days. Patient was recently admitted one month ago for a liver failure and ascites. She has been seeing a Dr. Quiroz. Patient's daughter is here with her now is helping with history. Patient states ever since her hospital admission she has been dealing with diarrhea but over the past 3 days she has been feeling weaker, has been incontinent to diarrhea. She has not had an appetite, she feels intermittent nausea but no vomiting. No fevers or chills. She denies any pain anywhere including no chest pain or shortness of breath. No abdominal pain. Patient recently had a tooth pulled 3 days ago and then 2 days ago was started on amoxicillin. Patient feels like the antibiotic made things worse. Patient does have follow-up with Dr. Curran's office and patient has remained stable. Patient has no further complaints at this time. Upon arrival to the ER, her vital signs are stable. Workup in ED including an EKG revealed A. fib, left axis deviation, inferior infarct age undetermined with ventricular rate of 93; repeat EKG revealed normal sinus rhythm with occasional PVCs Blood work with chemical profile sodium 134, potassium 3.2, BUN of 60 to come a creatinine of 3.30; CBC with white blood count of 12.6 with normal lactic acid level, PT/INR of 15.7/1.6 Patient is admitted to the hospital for acute renal injury/dehydration and paroxysmal atrial fibrillation 11/09/2020 Patient is seen and evaluated sitting up in chair with daughter at bedside; continues to complain of several episodes of diarrhea; C. 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 bus monitor; await further recommendations from cardiology once echocardiogram is completed We will plan to consult GI for persistent diarrhea 11/10/2020 Patient is seen and evaluated with daughter at bedside; complains of burning and redness of time with pain while eating; continues to have episodes of diarrhea; hasn't been seen by GI service Nephrology following for 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 likely prerenal; creatinine slowly trending down at 3.2 this morning; severe metabolic acidosis due to renal failure; patient has been placed on IV bicarbonate infusion without any improvement in metabolic acidosis; nephrology recommending possible start of dialysis; patient and family will discuss and make a decision Cardiology is on board for MAT versus new onset atrial fibrillation; EKG this morning is more consistent with atrial fibrillation with controlled ventricular rate; echocardiogram reveals an EF of 55-60% with mild mitral regurg; cardiology recommending anticoagulation with Eliquis and patient has been placed on omar apamil 40 mg twice a day We will place patient on nystatin swish and swallow for oral thrush 11/11/2020 Patient is currently sitting in the chair. Awake alert and oriented. Denied any complaints of chest pain or shortness of breath. Patient remained on anticoagulation with Eliquis. Atrial fibrillation with controlled heart rate. No complaints of abdominal pain. Otherwise patient is still having diarrhea. Stool cultures showed no growth. Urine culture is growing gram-negative bacilli. Creatinine level improved to 2.89 today. Potassium is 2.5 which is being replaced. Patient has been afebrile. Laboratory data showed WBC 15.2 and hemoglobin 10.8 and MCV 103.4 Patient is currently being continued on D5 water at 100 cc/h. Cardiology, nephrology and GI is on board. Discussed with the patient's daughter at bedside in detail. 11/12/2020 Patient is currently lying in the bed. States that she feels very weak. Diarrhea is better today.. No complaints of abdominal pain. Tolerating oral diet. Patient remained in atrial fibrillation but rate is controlled. Blood pressure is low at 95/56. Laboratory showed WBC 13.3, hemoglobin 10.6 and platelets 160 Potassium level is 2.9 today BUN 52 and creatinine 2.83 and magnesium 1.6 Nephrology is planning for hemodialysis tomorrow. 11/13/2020 Patient is currently sitting in a chair. No complaints of chest pain. Shortness of breath is improved. Patient was initiated on hemodialysis today. Blood pressure is stable at 111/60 and pulse ox 97% on room air. Patient continues to have diarrhea. C. difficile was negative. Leukocytosis is about the same at 13.4 and hemoglobin 10.6 potassium level improved to 4.6 and BUN 52 and creatinine 2.82. Patient remains on atrial fibrillation with controlled heart rate. Patient is also on antibiotics with all cefepime for urinary tract infection. Discussed patient's condition with her daughter at bedside in detail. 11/14/2020 Patient is currently sitting in the chair. Denies any complaints of chest pain. Shortness of breath is stable. Patient did have hemodialysis. Complains of nausea and not eating well. Patient is complaining of diarrhea which is improving now. Cultures have been negative. Patient has been afebrile. Patient remains on anticoagulation and atrial fibrillation rate is controlled. No complaints of abdominal pain. No dizziness or lightheadedness. Discussed with her daughter at bedside in detail. 11/15/2020 Patient is currently resting in the bed. No complaints of chest pain. Patient states that her diarrhea is better and she did not have any bowel movement since morning. No complaints of abdominal pain. No dysuria. Patient has been afebrile. Laboratory data showed WBC 12.67, hemoglobin 10.0, BUN 34 and creatinine 1.89 and calcium level is 7.4 Renal function remains stable. Next hemodialysis is tomorrow. Nephrology is on board. 11/16/2020 Patient is currently sitting in the state. Complains of weight gain and abdominal distention. Discussed with her daughter at bedside. Ultrasound of the abdomen was ordered to rule out Ascitis. Patient did have paracentesis previously due to liver cirrhosis. Patient does have coarse breath sounds and crackles on lung exam. Patient did have hemodialysis today. Complains of nauseated and does have decreased oral intake. Patient did have bowel movement today. Currently afebrile. Denied any dysuria or hematuria. Laboratory data showed WBC 17.4 hemoglobin 10.7 and platelets 185 Sodium 132 potassium 4.7 chloride 100 BUN 41 and creatinine 2.18 and calcium 7.4. Patient is being continued on antibiotics for urinary tract infection. Continue with Eliquis and rate is controlled. Chest x-ray showed CHF with right pleural effusion. Patient was given IV Lasix today. Current medications reviewed. Objective - Vital Signs Vital signs: Vital Signs Temp 97.8 F 11/16/20 12:00 Pulse 83 11/16/20 15:33 Resp 18 11/16/20 15:33 BP 103/58 11/16/20 17:35 Pulse Ox 96 11/16/20 15:33 Intake & Output 11/15/20 11/16/20 11/16/20 18:59 06:59 18:59 Intake Total 220 1060 Output Total 2 Balance 220 1058 Weight 74.1 kg Intake: Oral 220 60 Hemodialysis 1000 Output: Stool 2 Other: Voiding Method Toilet Toilet Toilet Diaper Diaper # Voids 2 1 1 # Bowel Movements 1 1 - Exam - Exam - Constitutional General appearance: Present: average body habitus, cooperative, no acute distress - EENT Eyes: Present: anicteric sclerae, EOMI, PERRLA, normal appearance ENT: Present: hearing grossly normal, normal oropharynx Ears: bilateral: normal - Neck Neck: Present: normal ROM. Absent: lymphadenopathy, rigidity, thyromegaly Carotids: negative: bruit present Thyroid: bilateral: normal size, negative: enlarged, nodule - Respiratory Respiratory: bilateral: +crackles, negative: rales, rhonchi, wheezing - Cardiovascular Rhythm: regular Heart sounds: normal: S1, S2 Abnormal Heart Sounds: Absent: systolic murmur, diastolic murmur - Gastrointestinal General gastrointestinal: Present: normal bowel sounds, soft. Absent: distended, organomegaly, tenderness - Genitourinary Genitourinary Comment(s): deferred - Integumentary Integumentary: Present: normal turgor. Absent: jaundiced, rash, ulcer - Neurologic Neurologic: Present: CNII-XII intact. Absent: focal deficits - Musculoskeletal Musculoskeletal: Present: gait normal, strength equal bilaterally - Psychiatric Psychiatric: Present: A&O x's 3, appropriate affect, intact judgment & insight - Labs CBC & Chem 7: 11/16/20 06:55 11/16/20 06:55 Labs: Abnormal Lab Results - Last 24 Hours (Table) 11/16/20 11/16/20 Range/Units 06:55 06:55 WBC 17.4 H (3.8-10.6) k/uL RBC 3.34 L (3.80-5.40) m/uL Hgb 10.7 L (11.4-16.0) gm/dL MCV 104.7 H (80.0-100.0) fL MCHC 30.5 L (31.0-37.0) g/dL Neutrophils # 13.8 H (1.3-7.7) k/uL Monocytes # 1.5 H (0-1.0) k/uL Sodium 132 L (137-145) mmol/L BUN 41 H (7-17) mg/dL Creatinine 2.18 H (0.52-1.04) mg/dL Calcium 7.4 L (8.4-10.2) mg/dL Assessment and Plan Assessment: 1. Acute on chronic kidney disease-4 - IV fluids on hold . we will monitor strict ALLAN's, daily weights, renal function and electrolytes; avoid nephrotoxic agents; continue with sodium bicarbonate 1300 mg by mouth QID - Nephrology is following. Patient was initiated on hemodialysis on 11/13/2020 - HD today 2. Gram-negative bacilli urinary tract infection. Urine culture showed Enterobacter ProCare and E. coli. Antibiotics changed to cefepime. 2. Intractable nausea/vomiting/diarrhea; Possibly antibiotic induced - Patient is started on IV fluids; continue to monitor electrolytes and renal function; symptomatic treatment of nausea and vomiting Replace potassium due to severe hyperkalemia. 3. Hypotension/dehydration; secondary to #2; IV fluid hydration as indicated above 4. Leukocytosis; possibly reactive; patient is afebrile with normal lactic acid level; we will monitor CBC . 5. Paroxysmal atrial fibrillation; new onset; Patient is currently in atrial fibrillation but rate is controlled. Continued on verapamil and anticoagulation with Eliquis. 6. Vitamin B12 deficiency; continue with oral supplement thousand MCG daily 7. Vitamin D deficiency; vitamin D3 125 MCG daily DVT prophylaxis SCDs CODE STATUS; full code Time with Patient: Greater than 30
[2020-11-17] MEDS: MIDODRINE 5 MG TAB PO SCH ×3 (06:27→17:42)
[2020-11-17] MEDS: allopurinoL 100 MG TAB PO SCH (08:00)
[2020-11-17] MEDS: APIXABAN 2.5 MG TABLET PO SCH ×2 (08:00→19:59)
[2020-11-17] MEDS: PARoxetine 20 MG TAB PO SCH (08:00)
[2020-11-17] MEDS: VIT A,C & E-LUTEIN-MINERALS 1 EACH TAB PO SCH ×2 (08:00→19:58)
[2020-11-17] MEDS: SODIUM BICARBONATE TAB 650 MG TAB PO SCH (08:01)
[2020-11-17] MEDS: CHOLECALCIFEROL 25 MCG (1000 IU) TABLET PO SCH (08:01)
[2020-11-17] MEDS: NYSTATIN 100,000 UNIT/ML SUSP 500,000 UNIT/5 ML CUP PO SCH ×4 (08:01→19:58)
[2020-11-17] MEDS: FAMOTIDINE 20 MG TAB PO SCH (08:01)
[2020-11-17 09:56] LABS: Calcium 7.3 mg/dL (8.4-10.2); Potassium 3.6 mmol/L (3.5-5.1)
[2020-11-17] MEDS ORDERED: FUROSEMIDE 10 MG/ML 10 ML VIAL IV STA (10:20)
--- NOTE | 2020-11-17 10:27 | P.PN ---
Subjective Progress Note Date: 11/17/20 Principal diagnosis: This is a 80-year-old female seen in consultation with Acute kidney injury and chronic kidney disease. She was started on dialysis because of severe acidosis last dialysis was 2 days ago. She had dialysis yesterday. She has a left upper arm graft. Her acidosis is improved her urine output is minimal. This morning she is somewhat worse with somnolence and performed weakness. The only change is safe if I'm which was reintroduced after 2 or 3 days being off of it. She has a UTI with E. coli and Enterobacter cloacae. Her vital signs are stable Her appetite is very poor. Her bowel movements are 102 only. 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 This had gotten worse and She says her usual is about 8-10 a day. Recently she has been diagnosed with cirrhosis, cause not clear. Past history is significant for atrial fibrillation, Objective - Vital Signs Vital signs: Vital Signs Temp 97.9 F 11/17/20 07:50 Pulse 86 11/17/20 07:50 Resp 18 11/17/20 07:50 BP 126/66 11/17/20 07:50 Pulse Ox 93 L 11/17/20 07:50 Intake & Output 11/16/20 11/17/20 11/17/20 18:59 06:59 18:59 Intake Total 1060 Output Total 2 Balance 1058 Weight 74 kg Intake: Oral 60 Hemodialysis 1000 Output: Stool 2 Other: Voiding Method Toilet Toilet Diaper Diaper # Voids 1 1 # Bowel Movements 1 1 On examination she is somnolent but arousable and and unable to tell us why she is feeling so bad. HEENT exam no JVP neck is supple no facial asymmetry Lungs are clear to auscultation fair air entry bilaterally Heart sounds unremarkable for any murmur rub gallop Abdomen soft nontender Extremity exam shows mild edema Neurologically somnolent but arousable and profoundly weak - Labs CBC & Chem 7: 11/16/20 06:55 11/17/20 08:36 Labs: Abnormal Lab Results - Last 24 Hours (Table) 11/17/20 Range/Units 08:36 BUN 28 H (7-17) mg/dL Creatinine 1.85 H (0.52-1.04) mg/dL Calcium 7.3 L (8.4-10.2) mg/dL Assessment and Plan Assessment: Impression 1. Severe acidosis secondary to diarrhea and chronic kidney disease, started on dialysis with resolution of acidosis. Bicarb is 26 on by mouth bicarbonate 2. Chronic kidney disease, stage IV- V, GFR is 12- 15 mL per minute secondary to nephrosclerosis Baseline creatinine 2.8, 3. 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 4. Profound weakness. Hemoglobin is 10.7. 5. Liver cirrhosis cryptogenic, no ascites clinically. 6. History of atrial fibrillation, ejection fraction is 55-60% on echocardiogram this admission 7. A chest x-ray shows new findings of either congestive heart failure and/or pneumonia combined with fluid on mostly right but small amount of the right as well Recommendation 1. We'll try 100 mg of Lasix to see if she can be diuresed. She was dialyzed yesterday 2. Continue the verapamil because of the atrial fibrillation she has had. 3. Discussed with primary physician regarding changing the second time to levofloxacin because of the possibly that the antibiotic may be causing her m ental status changes 4. Dialysis tomorrow for 3 hours, and we'll try to take off 2 L of fluid if she tolerates
[2020-11-17 10:29] LABS: HCT 33.5 % (34.0-46.0); HGB 10.3 gm/dL (11.4-16.0); Hypochromasia Moderate; MCH 31.9 pg (25.0-35.0); MCHC 30.6 g/dL (31.0-37.0); MCV 104.3 fL (80.0-100.0); Macrocytosis Slight; Platelet Count 178 k/uL (150-450); RBC 3.21 m/uL (3.80-5.40); RDW 14.3 % (11.5-15.5)
[2020-11-17] MEDS ORDERED: LEVOFLOXACIN 500 MG TAB PO ONE (10:45)
[2020-11-17] MEDS ORDERED: ALPRAZolam 0.25 MG TAB PO PRN (12:39)
[2020-11-17] MEDS ORDERED: ALPRAZolam 0.5 MG TAB PO PRN (12:39)
[2020-11-17] MEDS ORDERED: NITROGLYCERIN SL TABS 0.4 MG TAB SUBLINGUAL PRN (12:39)
[2020-11-17 12:43] LABS: Eosinophils # (M) 0.36 k/uL (0-0.7); Lymphocytes # (M) 0.72 k/uL (1.0-4.8); Monocytes # (M) 1.44 k/uL (0-1.0); Neutrophils # (M) 15.48 k/uL (1.3-7.7); Neutrophils % (M) 86 %; Nucleated Red Blood Cells 0 /100 WBC (0-0); Total Cells Counted 100
[2020-11-17] MEDS ORDERED: POTASSIUM CHLORIDE ER 20 MEQ TAB.ER PO SCH (13:00)
[2020-11-17] MEDS: VERAPAMIL SR 120 MG TABLET.ER PO SCH (19:58)
[2020-11-18] MEDS ORDERED: SODIUM CHLORIDE 0.9% 1,000 ML in EMPTY BAG 1 BAG IV ONE
--- NOTE | 2020-11-18 00:26 | P.PN ---
Subjective Progress Note Date: 11/17/20 Principal diagnosis: Nausea, vomiting, diarrhea Paroxysmal atrial fibrillation Acute on chronic kidney disease 80-year-old female presenting to the emergency Department with complaints of diarrhea but steadily increasing over the past few days. Patient was recently admitted one month ago for a liver failure and ascites. She has been seeing a Dr. Quiroz. Patient's daughter is here with her now is helping with history. Patient states ever since her hospital admission she has been dealing with diarrhea but over the past 3 days she has been feeling weaker, has been incontinent to diarrhea. She has not had an appetite, she feels intermittent nausea but no vomiting. No fevers or chills. She denies any pain anywhere including no chest pain or shortness of breath. No abdominal pain. Patient recently had a tooth pulled 3 days ago and then 2 days ago was started on amoxicillin. Patient feels like the antibiotic made things worse. Patient does have follow-up with Dr. Curran's office and patient has remained stable. Patient has no further complaints at this time. Upon arrival to the ER, her vital signs are stable. Workup in ED including an EKG revealed A. fib, left axis deviation, inferior infarct age undetermined with ventricular rate of 93; repeat EKG revealed normal sinus rhythm with occasional PVCs Blood work with chemical profile sodium 134, potassium 3.2, BUN of 60 to come a creatinine of 3.30; CBC with white blood count of 12.6 with normal lactic acid level, PT/INR of 15.7/1.6 Patient is admitted to the hospital for acute renal injury/dehydration and paroxysmal atrial fibrillation 11/09/2020 Patient is seen and evaluated sitting up in chair with daughter at bedside; continues to complain of several episodes of diarrhea; C. 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 classroom monitor; await further recommendations from cardiology once echocardiogram is completed We will plan to consult GI for persistent diarrhea 11/10/2020 Patient is seen and evaluated with daughter at bedside; complains of burning and redness of time with pain while eating; continues to have episodes of diarrhea; hasn't been seen by GI service Nephrology following for 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 likely prerenal; creatinine slowly trending down at 3.2 this morning; severe metabolic acidosis due to renal failure; patient has been placed on IV bicarbonate infusion without any improvement in metabolic acidosis; nephrology recommending possible start of dialysis; patient and family will discuss and make a decision Cardiology is on board for MAT versus new onset atrial fibrillation; EKG this morning is more consistent with atrial fibrillation with controlled ventricular rate; echocardiogram reveals an EF of 55-60% with mild mitral regurg; cardiology recommending anticoagulation with Eliquis and patient has been placed on omar apamil 40 mg twice a day We will place patient on nystatin swish and swallow for oral thrush 11/11/2020 Patient is currently sitting in the chair. Awake alert and oriented. Denied any complaints of chest pain or shortness of breath. Patient remained on anticoagulation with Eliquis. Atrial fibrillation with controlled heart rate. No complaints of abdominal pain. Otherwise patient is still having diarrhea. Stool cultures showed no growth. Urine culture is growing gram-negative bacilli. Creatinine level improved to 2.89 today. Potassium is 2.5 which is being replaced. Patient has been afebrile. Laboratory data showed WBC 15.2 and hemoglobin 10.8 and MCV 103.4 Patient is currently being continued on D5 water at 100 cc/h. Cardiology, nephrology and GI is on board. Discussed with the patient's daughter at bedside in detail. 11/12/2020 Patient is currently lying in the bed. States that she feels very weak. Diarrhea is better today.. No complaints of abdominal pain. Tolerating oral diet. Patient remained in atrial fibrillation but rate is controlled. Blood pressure is low at 95/56. Laboratory showed WBC 13.3, hemoglobin 10.6 and platelets 160 Potassium level is 2.9 today BUN 52 and creatinine 2.83 and magnesium 1.6 Nephrology is planning for hemodialysis tomorrow. 11/13/2020 Patient is currently sitting in a chair. No complaints of chest pain. Shortness of breath is improved. Patient was initiated on hemodialysis today. Blood pressure is stable at 111/60 and pulse ox 97% on room air. Patient continues to have diarrhea. C. difficile was negative. Leukocytosis is about the same at 13.4 and hemoglobin 10.6 potassium level improved to 4.6 and BUN 52 and creatinine 2.82. Patient remains on atrial fibrillation with controlled heart rate. Patient is also on antibiotics with all cefepime for urinary tract infection. Discussed patient's condition with her daughter at bedside in detail. 11/14/2020 Patient is currently sitting in the chair. Denies any complaints of chest pain. Shortness of breath is stable. Patient did have hemodialysis. Complains of nausea and not eating well. Patient is complaining of diarrhea which is improving now. Cultures have been negative. Patient has been afebrile. Patient remains on anticoagulation and atrial fibrillation rate is controlled. No complaints of abdominal pain. No dizziness or lightheadedness. Discussed with her daughter at bedside in detail. 11/15/2020 Patient is currently resting in the bed. No complaints of chest pain. Patient states that her diarrhea is better and she did not have any bowel movement since morning. No complaints of abdominal pain. No dysuria. Patient has been afebrile. Laboratory data showed WBC 12.67, hemoglobin 10.0, BUN 34 and creatinine 1.89 and calcium level is 7.4 Renal function remains stable. Next hemodialysis is tomorrow. Nephrology is on board. 11/16/2020 Patient is currently sitting in the state. Complains of weight gain and abdominal distention. Discussed with her daughter at bedside. Ultrasound of the abdomen was ordered to rule out Ascitis. Patient did have paracentesis previously due to liver cirrhosis. Patient does have coarse breath sounds and crackles on lung exam. Patient did have hemodialysis today. Complains of nauseated and does have decreased oral intake. Patient did have bowel movement today. Currently afebrile. Denied any dysuria or hematuria. Laboratory data showed WBC 17.4 hemoglobin 10.7 and platelets 185 Sodium 132 potassium 4.7 chloride 100 BUN 41 and creatinine 2.18 and calcium 7.4. Patient is being continued on antibiotics for urinary tract infection. Continue with Eliquis and rate is controlled. Chest x-ray showed CHF with right pleural effusion. Patient was given IV Lasix today. 11/17/2020 Patient is currently sitting in the chair comfortably. Patient was confused this morning and is more awake now. Patient is also complaining generalized weakness and loss of appetite. On antibiotics for E. coli and Enterobacter cloacae urinary tract infection. Cefepime will be changed to Levaquin due to possible encephalopathy. Patient remained in atrial fibrillation but rate is controlled. Patient was started on dialysis during this admission last dialysis was yesterday. Patient was given a dose of Lasix and also today. Diarrhea is better and patient has more formed stool now. However patient is afebrile. Laboratory data showed WBC 18.0, hemoglobin 10.3 and platelets 178 Sodium 137 potassium 3.6 chloride 106 BUN 28 and creatinine 1.85Ultrasound of the abdomen showed small ascites. Nephrology is following.Discussed with her son at bedside in detail. Current medications reviewed. Objective - Vital Signs Vital signs: Vital Signs Temp 97.6 F 11/17/20 16:00 Pulse 71 11/17/20 16:00 Resp 16 11/17/20 16:00 BP 116/62 11/17/20 16:00 Pulse Ox 98 11/17/20 16:00 Intake & Output 11/16/20 11/17/20 11/17/20 18:59 06:59 18:59 Intake Total 1060 80 Output Total 2 1 Balance 1058 79 Weight 74 kg Intake: Oral 60 80 Hemodialysis 1000 Output: Stool 2 1 Other: Voiding Method Toilet Toilet Toilet Diaper Diaper Diaper # Voids 1 1 # Bowel Movements 1 1 2 - Exam - Exam - Constitutional General appearance: Present: average body habitus, cooperative, no acute distress - EENT Eyes: Present: anicteric sclerae, EOMI, PERRLA, normal appearance ENT: Present: hearing grossly normal, normal oropharynx Ears: bilateral: normal - Neck Neck: Present: normal ROM. Absent: lymphadenopathy, rigidity, thyromegaly Carotids: negative: bruit present Thyroid: bilateral: normal size, negative: enlarged, nodule - Respiratory Respiratory: bilateral: +crackles, negative: rales, rhonchi, wheezing - Cardiovascular Rhythm: regular Heart sounds: normal: S1, S2 Abnormal Heart Sounds: Absent: systolic murmur, diastolic murmur - Gastrointestinal General gastrointestinal: Present: normal bowel sounds, soft. Absent: distended, organomegaly, tenderness - Genitourinary Genitourinary Comment(s): deferred - Integumentary Integumentary: Present: normal turgor. Absent: jaundiced, rash, ulcer - Neurologic Neurologic: Present: CNII-XII intact. Absent: focal deficits - Musculoskeletal Musculoskeletal: Present: gait normal, strength equal bilaterally - Psychiatric Psychiatric: Present: A&O x's 3, appropriate affect, intact judgment & insight - Labs CBC & Chem 7: 11/17/20 08:36 11/17/20 08:36 Labs: Abnormal Lab Results - Last 24 Hours (Table) 11/17/20 11/17/20 Range/Units 08:36 08:36 WBC 18.0 H (3.8-10.6) k/uL RBC 3.21 L (3.80-5.40) m/uL Hgb 10.3 L (11.4-16.0) gm/dL Hct 33.5 L (34.0-46.0) % MCV 104.3 H (80.0-100.0) fL MCHC 30.6 L (31.0-37.0) g/dL Neutrophils # (Manual) 15.48 H (1.3-7.7) k/uL Lymphocytes # (Manual) 0.72 L (1.0-4.8) k/uL Monocytes # (Manual) 1.44 H (0-1.0) k/uL BUN 28 H (7-17) mg/dL Creatinine 1.85 H (0.52-1.04) mg/dL Calcium 7.3 L (8.4-10.2) mg/dL Assessment and Plan Assessment: 1. Acute on chronic kidney disease-4. New onset hemodialysis. - IV fluids on hold . we will monitor strict ALLAN's, daily weights, renal function and electrolytes; avoid nephrotoxic agents; continue with sodium b icarbonate 1300 mg by mouth QID - Nephrology is following. Patient was initiated on hemodialysis on 11/13/2020 - HD tomorrow. Patient was given IV Lasix for diuresis. Chest x-ray showed CHF. 2. Gram-negative bacilli urinary tract infection. Urine culture showed Enterobacter ProCare and E. coli. Antibiotics changed to cefepime...Levoquin. Patient is having worsening leukocytosis with possible underlying pneumonia suspected on chest x-ray. Continue with current antibiotics. 2. Intractable nausea/vomiting/diarrhea; Possibly antibiotic induced - Patient is started on IV fluids; continue to monitor electrolytes and renal function; symptomatic treatment of nausea and vomiting Replace potassium due to severe hyperkalemia. 3. Hypotension/dehydration; secondary to #2; IV fluid hydration as indicated above 4. Recently diagnosed liver cirrhosis. Etiology unknown. There is post paracentesis recently. Does have small ascites on ultrasound now. 5. Paroxysmal atrial fibrillation; new onset; Patient is currently in atrial fibrillation but rate is controlled. Continued on verapamil and anticoagulation with Eliquis. 6. Vitamin B12 deficiency; continue with oral supplement thousand MCG daily 7. Vitamin D deficiency; vitamin D3 125 MCG daily DVT prophylaxis SCDs CODE STATUS; full code Time with Patient: Greater than 30
[2020-11-18] MEDS ORDERED: ATORVASTATIN 80 MG TAB PO ONE (06:00)
[2020-11-18] MEDS ORDERED: ASPIRIN 325 MG TAB PO ONE (06:00)
[2020-11-18] MEDS: MIDODRINE 5 MG TAB PO SCH ×2 (06:45→14:31)
[2020-11-18] MEDS ORDERED: HEPARIN SODIUM,PORCINE 10,000 UNIT in SODIUM CHLORIDE 0.9% 1,000 ML IRRIGATION PRN (07:00)
[2020-11-18] MEDS ORDERED: HEPARIN SODIUM,PORCINE 2,500 UNIT in SODIUM CHLORIDE 0.9% 250 ML IRRIGATION PRN (07:00)
[2020-11-18 08:12] LABS: Basophils # (A) 0.1 k/uL (0-0.2); Basophils % (A) 0 %; Eosinophils # (A) 0.2 k/uL (0-0.7); Eosinophils % (A) 1 %; HCT 35.3 % (34.0-46.0); HGB 10.8 gm/dL (11.4-16.0); Hypochromasia Marked; Lymphocytes # (A) 1.7 k/uL (1.0-4.8); Lymphocytes % (A) 10 %; MCH 32.3 pg (25.0-35.0); MCHC 30.7 g/dL (31.0-37.0); MCV 105.5 fL (80.0-100.0); Macrocytosis Moderate; Mean Platelet Volume 7.9; Monocytes # (A) 1.2 k/uL (0-1.0); Monocytes % (A) 7 %; Neutrophils # (A) 14.1 k/uL (1.3-7.7); Neutrophils % (A) 80 %; Platelet Count 176 k/uL (150-450); RBC 3.35 m/uL (3.80-5.40); RDW 14.5 % (11.5-15.5); WBC 17.6 k/uL (3.8-10.6)
[2020-11-18 08:16] LABS: Calcium 7.5 mg/dL (8.4-10.2); Potassium 4.5 mmol/L (3.5-5.1)
[2020-11-18] MEDS: APIXABAN 2.5 MG TABLET PO SCH (09:42)
[2020-11-18] MEDS: PARoxetine 20 MG TAB PO SCH (09:42)
[2020-11-18] MEDS: CHOLECALCIFEROL 25 MCG (1000 IU) TABLET PO SCH (09:42)
[2020-11-18] MEDS: CYANOCOBALAMIN 500 MCG TAB PO SCH (09:42)
[2020-11-18] MEDS: VIT A,C & E-LUTEIN-MINERALS 1 EACH TAB PO SCH (09:42)
[2020-11-18] MEDS: allopurinoL 100 MG TAB PO SCH (09:42)
[2020-11-18] MEDS: FAMOTIDINE 20 MG TAB PO SCH (09:42)
[2020-11-18] MEDS: SODIUM BICARBONATE TAB 650 MG TAB PO SCH (09:43)
[2020-11-18] MEDS: NYSTATIN 100,000 UNIT/ML SUSP 500,000 UNIT/5 ML CUP PO SCH ×3 (09:43→11:30)
[2020-11-18] MEDS ORDERED: LEVOFLOXACIN 250 MG TAB PO SCH (10:00)
[2020-11-18 10:28] VITALS: TEMP 97.8
[2020-11-18 11:33] VITALS: BP 121/54; PULSE 69; RESP 20
--- NOTE | 2020-11-18 11:34 | P.DS ---
Providers Date of admission: 11/08/20 14:29 Attending physician: Bibi Nuñez MD Consults: 11/08/20 14:15 Consult Physician Urgent Consulting Provider: Ju Sharpe Consult Reason/Comments: CKD Do you want consulting provider notified?: Yes Primary care physician: Physician Nonstaff Hospital Course: 80-year-old female presenting to the emergency Department with complaints of diarrhea but steadily increasing over the past few days. Patient was recently admitted one month ago for a liver failure and ascites. She has been seeing a Dr. Quiroz. Patient's daughter is here with her now is helping with history. Patient states ever since her hospital admission she has been dealing with diarrhea but over the past 3 days she has been feeling weaker, has been incontinent to diarrhea. She has not had an appetite, she feels intermittent nausea but no vomiting. No fevers or chills. She denies any pain anywhere including no chest pain or shortness of breath. No abdominal pain. Patient recently had a tooth pulled 3 days ago and then 2 days ago was started on amoxicillin. Patient feels like the antibiotic made things worse. Patient does have follow-up with Dr. Curran's office and patient has remained stable. Patient has no further complaints at this time. Upon arrival to the ER, her vital signs are stable. Workup in ED including an EKG revealed A. fib, left axis deviation, inferior infarct age undetermined with ventricular rate of 93; repeat EKG revealed normal sinus rhythm with occasional PVCs Blood work with chemical profile sodium 134, potassium 3.2, BUN of 60 to come a creatinine of 3.30; CBC with white blood count of 12.6 with normal lactic acid level, PT/INR of 15.7/1.6 Patient is admitted to the hospital for acute renal injury/dehydration and paroxysmal atrial fibrillation 11/09/2020 Patient is seen and evaluated sitting up in chair with daughter at bedside; continues to complain of several episodes of diarrhea; C. 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 cardiac exercise physiologist; await further recommendations from cardiology once echocardiogram is completed We will plan to consult GI for persistent diarrhea 11/10/2020 Patient is seen and evaluated with daughter at bedside; complains of burning and redness of time with pain while eating; continues to have episodes of diarrhea; hasn't been seen by GI service Nephrology following for 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 likely prerenal; creatinine slowly trending down at 3.2 this morning; severe metabolic acidosis due to renal failure; patient has been placed on IV bicarbonate infusion without any improvement in metabolic acidosis; nephrology recommending possible start of dialysis; patient and family will discuss and make a decision Cardiology is on board for MAT versus new onset atrial fibrillation; EKG this morning is more consistent with atrial fibrillation with controlled ventricular rate; echocardiogram reveals an EF of 55-60% with mild mitral regurg; cardiology recommending anticoagulation with Eliquis and patient has been placed on verapamil 40 mg twice a day We will place patient on nystatin swish and swallow for oral thrush 11/11/2020 Patient is currently sitting in the chair. Awake alert and oriented. Denied any complaints of chest pain or shortness of breath. Patient remained on anticoagulation with Eliquis. Atrial fibrillation with controlled heart rate. No complaints of abdominal pain. Otherwise patient is still having diarrhea. Stool cultures showed no growth. Urine culture is growing gram-negative bacilli. Creatinine level improved to 2.89 today. Potassium is 2.5 which is being replaced. Patient has been afebrile. Laboratory data showed WBC 15.2 and hemoglobin 10.8 and MCV 103.4 Patient is currently being continued on D5 water at 100 cc/h. Cardiology, nephrology and GI is on board. Discussed with the patient's daughter at bedside in detail. 11/12/2020 Patient is currently lying in the bed. States that she feels very weak. Diarrhea is better today.. No complaints of abdominal pain. Tolerating oral diet. Patient remained in atrial fibrillation but rate is controlled. Blood pressure is low at 95/56. Laboratory showed WBC 13.3, hemoglobin 10.6 and platelets 160 Potassium level is 2.9 today BUN 52 and creatinine 2.83 and magnesium 1.6 Nephrology is planning for hemodialysis tomorrow. 11/13/2020 Patient is currently sitting in a chair. No complaints of chest pain. Shortness of breath is improved. Patient was initiated on hemodialysis today. Blood pressure is stable at 111/60 and pulse ox 97% on room air. Patient continues to have diarrhea. C. difficile was negative. Leukocytosis is about the same at 13.4 and hemoglobin 10.6 potassium level improved to 4.6 and BUN 52 and creatinine 2.82. Patient remains on atrial fibrillation with controlled heart rate. Patient is also on antibiotics with all cefepime for urinary tract infection. Discussed patient's condition with her daughter at bedside in detail. 11/14/2020 Patient is currently sitting in the chair. Denies any complaints of chest pain. Shortness of breath is stable. Patient did have hemodialysis. Complains of nausea and not eating well. Patient is complaining of diarrhea which is improving now. Cultures have been negative. Patient has been afebrile. Patient remains on anticoagulation and atrial fibrillation rate is controlled. No complaints of abdominal pain. No dizziness or lightheadedness. Discussed with her daughter at bedside in detail. 11/15/2020 Patient is currently resting in the bed. No complaints of chest pain. Patient states that her diarrhea is better and she did not have any bowel movement since morning. No complaints of abdominal pain. No dysuria. Patient has been afebrile. Laboratory data showed WBC 12.67, hemoglobin 10.0, BUN 34 and creatinine 1.89 and calcium level is 7.4 Renal function remains stable. Next hemodialysis is tomorrow. Nephrology is on board. 11/16/2020 Patient is currently sitting in the state. Complains of weight gain and abdominal distention. Discussed with her daughter at bedside. Ultrasound of the abdomen was ordered to rule out Ascitis. Patient did have paracentesis previously due to liver cirrhosis. Patient does have coarse breath sounds and crackles on lung exam. Patient did have hemodialysis today. Complains of nauseated and does have decreased oral intake. Patient did have bowel movement today. Currently afebrile. Denied any dysuria or hematuria. Laboratory data showed WBC 17.4 hemoglobin 10.7 and platelets 185 Sodium 132 potassium 4.7 chloride 100 BUN 41 and creatinine 2.18 and calcium 7.4. Patient is being continued on antibiotics for urinary tract infection. Continue with Eliquis and rate is controlled. Chest x-ray showed CHF with right pleural effusion. Patient was given IV Lasix today. 11/17/2020 Patient is currently sitting in the chair comfortably. Patient was confused this morning and is more awake now. Patient is also complaining generalized weakness and loss of appetite. On antibiotics for E. coli and Enterobacter cloacae urinary tract infection. Cefepime will be changed to Levaquin due to possible encephalopathy. Patient remained in atrial fibrillation but rate is controlled. Patient was started on dialysis during this admission last dialysis was yesterday. Patient was given a dose of Lasix and also today. Diarrhea is better and patient has more formed stool now. However patient is afebrile. Laboratory data showed WBC 18.0, hemoglobin 10.3 and platelets 178 Sodium 137 potassium 3.6 chloride 106 BUN 28 and creatinine 1.85Ultrasound of the abdomen showed small ascites. Nephrology is following.Discussed with her son at bedside in detail. 11/18/2020 Patient the is clinically doing well compared to yesterday patient is still oxygen which we will try to wean off today. Patient was cleared for discharge from nephrology perspective and patient was initiated on hemodialysis because of which patient is having some generalized tiredness and weakness her lungs sound clear PHYSICAL EXAMINATION: GENERAL: The patient is alert and oriented x3, not in any acute distress. Thin built elderly woman HEENT: Pupils are round and equally reacting to light. EOMI. No scleral icterus. No conjunctival pallor. Normocephalic, atraumatic. No pharyngeal erythema. No thyromegaly. CARDIOVASCULAR: S1 and S2 present. No murmurs, rubs, or gallops. PULMONARY: Chest is clear to auscultation, no wheezing or crackles. ABDOMEN: Soft, nontender, nondistended, normoactive bowel sounds. No palpable organomegaly. MUSCULOSKELETAL: No joint swelling or deformity. EXTREMITIES: No cyanosis, clubbing, or pedal edema. NEUROLOGICAL: Gross neurological examination did not reveal any focal deficits. SKIN: No rashes. Assessment and Plan Assessment: 1. Acute on chronic kidney disease-5. Patient was initiated on hemodialysis here and will be discharged today 2. Gram-negative bacilli urinary tract infection. Urine culture showed Enterobacter ProCare and E. coli. Patient will be discharged on levofloxacin for 2 more days completing antibiotic therapy patient E. coli and Enterobacter pansensitive 2. Intractable nausea/vomiting/diarrhea; Possibly antibiotic induced, improved 3. Hypotension: Improved now 4. Recently diagnosed liver cirrhosis. Etiology unknown. There is post paracentesis recently. Does have small ascites on ultrasound now. 5. Paroxysmal atrial fibrillation; new onset; Patient is currently in atrial fibrillation but rate is controlled. Continued on verapamil and anticoagulation with Eliquis. 6. Vitamin B12 deficiency; continue with oral supplement thousand MCG daily 7. Vitamin D deficiency; vitamin D3 125 MCG daily CODE STATUS; full code Patient Condition at Discharge: Stable Plan - Discharge Summary Discharge Rx Participant: No New Discharge Prescriptions: New Apixaban [Eliquis] 2.5 mg PO BID #60 tab Levofloxacin [Levaquin] 250 mg PO Q24H #2 tab Nystatin 100,000 Unit/ml Susp [Mycostatin Oral Susp] 500,000 unit PO QID #250 ml Sodium Bicarbonate Tab 650 mg PO DAILY tab Verapamil Sr [Isoptin Sr] 120 mg PO HS #30 tablet.er Continue Vit C/E/Zn/Coppr/Lutein/Zeaxan [Preservision Areds 2 Softgel] 1 cap PO BID Cyanocobalamin (Vitamin B-12) [Vitamin B-12] 2,500 mcg PO DAILY PARoxetine HCL [Paxil] 20 mg PO HS Cholecalciferol [Vitamin D3 (25 Mcg = 1000 Iu)] 125 mcg PO DAILY Calcitriol [Rocaltrol] 0.25 mcg PO MOWEFR Allopurinol [Zyloprim] 100 mg PO DAILY #30 tab Potassium Chloride [Klor-Con 20] 20 meq PO DAILY Furosemide [Lasix] 40 mg PO DAILY Discontinued Amoxicillin 500 mg PO Q8H Sodium Bicarbonate Tab 1,300 mg PO QID Discharge Medication List Calcitriol [Rocaltrol] 0.25 mcg PO MOWEFR 10/14/20 [History] Cholecalciferol [Vitamin D3 (25 Mcg = 1000 Iu)] 125 mcg PO DAILY 10/14/20 [History] Cyanocobalamin (Vitamin B-12) [Vitamin B-12] 2,500 mcg PO DAILY 10/14/20 [History] PARoxetine HCL [Paxil] 20 mg PO HS 10/14/20 [History] Vit C/E/Zn/Coppr/Lutein/Zeaxan [Preservision Areds 2 Softgel] 1 cap PO BID 10/14/20 [History] Allopurinol [Zyloprim] 100 mg PO DAILY #30 tab 10/17/20 [Rx] Furosemide [Lasix] 40 mg PO DAILY 11/08/20 [History] Potassium Chloride [Klor-Con 20] 20 meq PO DAILY 11/08/20 [History] Apixaban [Eliquis] 2.5 mg PO BID #60 tab 11/10/20 [Rx] Levofloxacin [Levaquin] 250 mg PO Q24H #2 tab 11/18/20 [Rx] Nystatin 100,000 Unit/ml Susp [Mycostatin Oral Susp] 500,000 unit PO QID #250 ml 11/18/20 [Rx] Sodium Bicarbonate Tab 650 mg PO DAILY tab 11/18/20 [Rx] Verapamil Sr [Isoptin Sr] 120 mg PO HS #30 tablet.er 11/18/20 [Rx] Follow up Appointment(s)/Referral(s): Ju Sharpe MD [STAFF PHYSICIAN] - 1 Week Aakash Palma MD [REFERRING] - 1 Week Activity/Diet/Wound Care/Special Instructions: Hemodialysis will be at [place] [id number] ([phone]), Chair time - Wednesday, , Wednesday - report at noon on Sunday 11/19 Eliquis filled at [facility] with free coupon
--- NOTE | 2020-11-18 13:48 | PN ---
PROGRESS NOTE Patient is seen for followup for chronic kidney disease, currently end-stage renal disease. The patient was started on dialysis this admission. She will be maintained on a Wednesday, , Wednesday schedule as outpatient. We will dialyze her today as she is volume overloaded. Overall, patient states her diarrhea is slightly better. PHYSICAL EXAMINATION: Blood pressure is 117/63, heart rate 77 per minute. She is afebrile. EXAMINATION OF THE HEART: S1, S2. EXAMINATION OF THE LUNGS: Bilateral breath sounds are heard. Abdomen is soft, nontender. Examination of lower extremities shows edema 2+ bilaterally. SUPPORT SPECIALIST exam grossly intact. LABS: Labs show sodium of 139, potassium 4.5, chloride 106, BUN 33, creatinine 2.4, hemoglobin 10.8 g/dL. ASSESSMENT: 1. Chronic kidney disease, currently started on dialysis this admission mostly for intractable acidosis, possible uremia. 2. Diarrhea. Workup currently negative, somewhat improved since Ensure is on hold. The patient has a history of intestinal bypass surgery and has chronic diarrhea as well. 3. Severe metabolic acidosis. 4. Volume overload. 5. Generalized debility. PLAN: Hemodialysis today following which if patient is discharged, she will follow up as outpatient for dialysis tomorrow. I will also discontinue the sodium chloride tabs since her acidosis is improved with dialysis. MMODL / IJN: [id number] /
--- NOTE | 2020-11-20 09:05 | CDI ---
Chronic diastolic CHF Documentation Clarification Form Date: 11/20/2020 09:03:00 AM From: Mira Salas CCS Admit Date: 11/08/2020 02:29:00 PM Patient Name: Radha Conn Visit Number: [id number] Discharge Date: 11/18/2020 05:56:00 PM ATTENTION: The Clinical Documentation Specialists (CDI) and [facility] Coding Staff appreciate your assistance in clarifying documentation. Please respond to the clarification below the line at the bottom and electronically sign. The CDI & [facility] Coding staff will review the response and follow-up if needed. Please note: Queries are made part of the Legal Health Record. If you have any questions, please contact the author of this message via ITS. Dr. Bibi Nuñez CHF is documented in the PNs 11/16-11/17, DS. PN 11/15 documents: The patient had continued to feel poorly with development of volume overload and therefore she was started on dialysis this admission History/Risk Factors: HTN, ESRD, AFIB, Cirrhosis, Ascites Clinical Indicators: Volume Overload, Pleural Effusion BNP: None Echocardiogram Results: Overall left ventricular systolic function is normal with, an EF between 55 - 60 %. The right ventricle is normal in size. The left atrial size is normal. The right atrial size is normal. Chest X Ray: CHF with small right pleural effusion. Treatment: Dialysis, Lasix IV In your professional opinion, can you please clarify the acuity and type of CHF if known? Systolic Heart Failure: Acute Chronic Acute on Chronic Diastolic Heart Failure: Acute Chronic Acute on Chronic Systolic & Diastolic Heart Failure: Acute Chronic Acute on Chronic Heart Failure Unable to Determine Other, please specify MTDD
== END 2020-11-18 17:56 | disposition home or self-care (01) | DRG 683 ==
LOC: EC 10:39 → 4SSUR 14:29 → OBSVTOIN 14:29 → 4SSUR 19:22 → 3SCARD 20:04
PROVIDERS: ADMIT Internal Medicine; ATTEND Internal Medicine
PROC: 5A1D70Z Performance of Urinary Filtration, Intermittent, Less than 6 Hours Per Day (ICD-10-PCS; principal; 2020-11-13)
DX: N17.9 Acute kidney failure, unspecified (principal); E87.2 Acidosis; I13.2 Hypertensive heart and chronic kidney disease with heart failure and with stage 5 chronic kidney disease, or end stage renal disease; R18.8 Other ascites; D68.9 Coagulation defect, unspecified; B37.0 Candidal stomatitis; I47.1 Supraventricular tachycardia; I50.32 Chronic diastolic (congestive) heart failure; N39.0 Urinary tract infection, site not specified; E83.9 Disorder of mineral metabolism, unspecified; D63.1 Anemia in chronic kidney disease; K74.69 Other cirrhosis of liver; I95.9 Hypotension, unspecified; N18.6 End stage renal disease; I48.0 Paroxysmal atrial fibrillation; Z20.822 Contact with and (suspected) exposure to COVID-19; E86.0 Dehydration; E53.8 Deficiency of other specified B group vitamins; E78.5 Hyperlipidemia, unspecified; E87.6 Hypokalemia; F32.9 Major depressive disorder, single episode, unspecified; R11.2 Nausea with vomiting, unspecified; I49.3 Ventricular premature depolarization; I34.0 Nonrheumatic mitral (valve) insufficiency; R53.81 Other malaise; B96.89 Other specified bacterial agents as the cause of diseases classified elsewhere; F41.9 Anxiety disorder, unspecified; K52.9 Noninfective gastroenteritis and colitis, unspecified; T36.0X5A Adverse effect of penicillins, initial encounter; B96.20 Unspecified Escherichia coli [E. coli] as the cause of diseases classified elsewhere; I25.2 Old myocardial infarction; Z71.3 Dietary counseling and surveillance; Z79.899 Other long term (current) drug therapy; Z98.890 Other specified postprocedural states; Z90.710 Acquired absence of both cervix and uterus; Z98.84 Bariatric surgery status; Z98.42 Cataract extraction status, left eye; Z98.41 Cataract extraction status, right eye; Z95.828 Presence of other vascular implants and grafts; Z88.8 Allergy status to other drugs, medicaments and biological substances
CPT/HCPCS: 36415; 71045; 71046; 76705; 80048; 80053; 81001; 83605; 83630; 83735; 84132; 84443; 84484; 85025; 85610; 85730; 86704; 86706; 87045; 87046; 87077; 87086; 87186; 87324; 87340; 87635; 90935; 93005; 93306; 96360; 99285

== ENCOUNTER 2020-11-29 22:15 | Inpatient (IN) | payer MEDICARE, OTHER ==
--- NOTE | 2020-11-29 23:00 | ED ---
Abdominal Pain HPI - General Chief Complaint: Abdominal Pain Stated Complaint: ABD pain Time Seen by Provider: 11/29/20 22:21 Source: patient, EMS Mode of arrival: EMS Limitations: no limitations - History of Present Illness Initial Comments: This patient is an 80-year-old woman with history of previous diagnosis of cirrhosis, chronic renal failure on hemodialysis, and ascites. She complains of abdominal pain since earlier today. She is not able to characterize the pain well. She indicates that it is diffuse throughout the abdomen. The patient has also had a couple of bowel movements with small amount of dark blood today. At time of initial history and physical, patient declines analgesic. MD Complaint: abdominal pain -: hour(s) Location: diffuse Radiation: none Migration to: no migration Severity: moderate Quality: other (Unable to characterize) Consistency: constant Improves With: nothing Worsens With: other (Outpatient) Associated Symptoms: diarrhea, melena - Related Data Home Medications Medication Instructions Recorded Confirmed Cholecalciferol [Vitamin D3 (25 125 mcg PO DAILY 10/14/20 11/30/20 Mcg = 1000 Iu)] Cyanocobalamin (Vitamin B-12) 2,500 mcg PO DAILY 10/14/20 11/30/20 [Vitamin B-12] PARoxetine HCL [Paxil] 20 mg PO HS 10/14/20 11/30/20 Vit C/E/Zn/Coppr/Lutein/Zeaxan 1 cap PO BID 10/14/20 11/30/20 [Preservision Areds 2 Softgel] calcitrioL [Rocaltrol] 0.25 mcg PO MOWEFR 10/14/20 11/30/20 Furosemide [Lasix] 40 mg PO DAILY 11/08/20 11/30/20 Potassium Chloride [Klor-Con 20] 20 meq PO DAILY 11/08/20 11/30/20 Lidocaine-Prilocaine Cream [Emla 1 applic TOPICAL DAILY PRN 11/30/20 11/30/20 Cream 2.5%/2.5%] Midodrine HCl [ProAmatine] 10 mg PO DIRECTED 11/30/20 11/30/20 metroNIDAZOLE [Flagyl] 500 mg PO BID 11/30/20 11/30/20 Previous Rx's Medication Instructions Recorded Allopurinol [Zyloprim] 100 mg PO DAILY #30 tab 10/17/20 Apixaban [Eliquis] 2.5 mg PO BID #60 tab 11/10/20 Nystatin 100,000 Unit/ml Susp 500,000 unit PO QID #250 ml 11/18/20 [Mycostatin Oral Susp] Sodium Bicarbonate Tab 650 mg PO DAILY tab 11/18/20 Verapamil Sr [Isoptin Sr] 120 mg PO HS #30 tablet.er 11/18/20 Allergies Allergy/AdvReac Type Severity Reaction Status Date / Time amoxicillin AdvReac thrush Verified 11/30/20 07:46 klor-con packet AdvReac "gerard Uncoded 11/30/20 07:46 mouth" Review of Systems ROS Statement: Those systems with pertinent positive or pertinent negative responses have been documented in the HPI. ROS Other: All systems not noted in ROS Statement are negative. Constitutional: Denies: fever, chills Respiratory: Denies: cough, dyspnea Cardiovascular: Denies: chest pain, palpitations Gastrointestinal: Reports: abdominal pain, diarrhea, melena. 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 Absent: scleral icterus, conjunctival injection ENT exam: Present: mucous membranes dry Respiratory exam: Present: normal lung sounds bilaterally. Absent: respiratory distress, wheezes, rales, rhonchi, stridor Cardiovascular Exam: Present: regular rate, normal rhythm, normal heart sounds. Absent: systolic murmur, diastolic murmur, rubs, gallop GI/Abdominal exam: Present: soft, distended, tenderness, guarding. Absent: rebound, rigid, mass, hernia Extremities exam: Present: normal inspection, normal capillary refill. Absent: pedal edema, calf tenderness Back exam: Present: normal inspection. Absent: CVA tenderness (R), CVA tenderness (L) Neurological exam: Present: alert Skin exam: Present: warm, dry, intact, normal color. Absent: rash Course Vital Signs 11/29/20 11/29/20 11/30/20 22:19 23:49 01:10 Temperature 98.8 F Pulse Rate 74 56 L 50 L Respiratory 18 18 16 Rate Blood Pressure 95/58 100/48 100/45 O2 Sat by Pulse 100 100 100 Oximetry 11/30/20 11/30/20 05:34 12:42 Temperature 97.8 F Pulse Rate 60 100 Respiratory 16 18 Rate Blood Pressure 99/54 106/63 O2 Sat by Pulse 100 98 Oximetry Procedures - Sepsis Sepsis Focused Exam #1 Sepsis Focused Exam Date: 11/30/20 Sepsis Focused Exam Time: 04:00 Capillary Refill: < 2 Seconds: Fingers Peripheral Pulses: Normal: Radial (L) Skin Color: Mottled Respiratory Exam: normal lung sounds Cardiovascular Exam: regular rate, bradycardia Medical Decision Making - Medical Decision Making Patient is a 80-year-old woman with abdominal pain and mental status change. Given the patient's tenderness and the ascites on exam concern of spontaneous bacterial peritonitis. Antibiotics started. She'll be admitted with surgical consultation to rule out surgical condition as well. Discussed with family that there is extremely guarded prognosis. - Lab Data Result diagrams: 12/01/20 09:42 12/01/20 11:05 Lab Results 11/29/20 11/29/20 11/29/20 Range/Units 23:41 23:41 23:41 WBC 16.8 H (3.8-10.6) k/uL RBC 3.78 L (3.80-5.40) m/uL Hgb 12.1 (11.4-16.0) gm/dL Hct 40.9 (34.0-46.0) % MCV 108.2 H (80.0-100.0) fL MCH 31.9 (25.0-35.0) pg MCHC 29.5 L (31.0-37.0) g/dL RDW 16.3 H (11.5-15.5) % Plt Count 174 (150-450) k/uL MPV 9.2 Neutrophils % 83 % Lymphocytes % 6 % Monocytes % 10 % Eosinophils % 0 % Basophils % 0 % Neutrophils # 13.9 H (1.3-7.7) k/uL Lymphocytes # 1.0 (1.0-4.8) k/uL Monocytes # 1.7 H (0-1.0) k/uL Eosinophils # 0.0 (0-0.7) k/uL Basophils # 0.0 (0-0.2) k/uL Hypochromasia Marked Anisocytosis Slight Macrocytosis Marked A D-Dimer 7.05 H (<0.60) mg/L FEU Sample Site ABG pH (7.35-7.45) ABG pCO2 (35-45) mmHg ABG pO2 (83-108) mmHg ABG HCO3 (21-25) mmol/L ABG Total CO2 (19-24) mmol/L ABG O2 Saturation (94-97) % ABG Base Excess mmol/L Los Test FiO2 % Sodium 137 (137-145) mmol/L Potassium 2.9 L (3.5-5.1) mmol/L Chloride 99 (98-107) mmol/L Carbon Dioxide 27 (22-30) mmol/L Anion Gap 11 mmol/L BUN 28 H (7-17) mg/dL Creatinine 3.47 H (0.52-1.04) mg/dL Est GFR (CKD-EPI)AfAm 13 (>60 ml/min/1.73 sqM) Est GFR (CKD-EPI)NonAf 12 (>60 ml/min/1.73 sqM) Glucose 109 H (74-99) mg/dL POC Glucose (mg/dL) (75-99) mg/dL POC Glu Spinning Frame Fixer ID Lactic Ac Sepsis Rflx Plasma Lactic Acid Gregory (0.7-2.0) mmol/L Calcium 7.6 L (8.4-10.2) mg/dL Magnesium (1.6-2.3) mg/dL Total Bilirubin 0.8 (0.2-1.3) mg/dL AST 22 (14-36) U/L ALT 10 (4-34) U/L Alkaline Phosphatase 126 (38-126) U/L Troponin I (0.000-0.034) ng/mL Total Protein 6.1 L (6.3-8.2) g/dL Albumin 2.2 L (3.5-5.0) g/dL Globulin g/dL Albumin/Globulin Ratio Amylase <30 L (30-110) U/L Lipase 66 (23-300) U/L Coronavirus (PCR) (Not Detectd) 11/29/20 11/30/20 11/30/20 Range/Units 23:41 00:25 00:32 WBC (3.8-10.6) k/uL RBC (3.80-5.40) m/uL Hgb (11.4-16.0) gm/dL Hct (34.0-46.0) % MCV (80.0-100.0) fL MCH (25.0-35.0) pg MCHC (31.0-37.0) g/dL RDW (11.5-15.5) % Plt Count (150-450) k/uL MPV Neutrophils % % Lymphocytes % % Monocytes % % Eosinophils % % Basophils % % Neutrophils # (1.3-7.7) k/uL Lymphocytes # (1.0-4.8) k/uL Monocytes # (0-1.0) k/uL Eosinophils # (0-0.7) k/uL Basophils # (0-0.2) k/uL Hypochromasia Anisocytosis Macrocytosis D-Dimer (<0.60) mg/L FEU Sample Site ABG pH (7.35-7.45) ABG pCO2 (35-45) mmHg ABG pO2 (83-108) mmHg ABG HCO3 (21-25) mmol/L ABG Total CO2 (19-24) mmol/L ABG O2 Saturation (94-97) % ABG Base Excess mmol/L Los Test FiO2 % Sodium (137-145) mmol/L Potassium (3.5-5.1) mmol/L Chloride (98-107) mmol/L Carbon Dioxide (22-30) mmol/L Anion Gap mmol/L BUN (7-17) mg/dL Creatinine (0.52-1.04) mg/dL Est GFR (CKD-EPI)AfAm (>60 ml/min/1.73 sqM) Est GFR (CKD-EPI)NonAf (>60 ml/min/1.73 sqM) Glucose (74-99) mg/dL POC Glucose (mg/dL) (75-99) mg/dL POC Glu Spinning Frame Fixer ID Lactic Ac Sepsis Rflx Y Plasma Lactic Acid Gregory 5.7 H* (0.7-2.0) mmol/L Calcium (8.4-10.2) mg/dL Magnesium (1.6-2.3) mg/dL Total Bilirubin (0.2-1.3) mg/dL AST (14-36) U/L ALT (4-34) U/L Alkaline Phosphatase (38-126) U/L Troponin I 0.014 (0.000-0.034) ng/mL Total Protein (6.3-8.2) g/dL Albumin (3.5-5.0) g/dL Globulin g/dL Albumin/Globulin Ratio Amylase (30-110) U/L Lipase (23-300) U/L Coronavirus (PCR) (Not Detectd) 11/30/20 11/30/20 11/30/20 Range/Units 01:20 03:23 03:59 WBC (3.8-10.6) k/uL RBC (3.80-5.40) m/uL Hgb (11.4-16.0) gm/dL Hct (34.0-46.0) % MCV (80.0-100.0) fL MCH (25.0-35.0) pg MCHC (31.0-37.0) g/dL RDW (11.5-15.5) % Plt Count (150-450) k/uL MPV Neutrophils % % Lymphocytes % % Monocytes % % Eosinophils % % Basophils % % Neutrophils # (1.3-7.7) k/uL Lymphocytes # (1.0-4.8) k/uL Monocytes # (0-1.0) k/uL Eosinophils # (0-0.7) k/uL Basophils # (0-0.2) k/uL Hypochromasia Anisocytosis Macrocytosis D-Dimer (<0.60) mg/L FEU Sample Site ABG pH (7.35-7.45) ABG pCO2 (35-45) mmHg ABG pO2 (83-108) mmHg ABG HCO3 (21-25) mmol/L ABG Total CO2 (19-24) mmol/L ABG O2 Saturation (94-97) % ABG Base Excess mmol/L Los Test FiO2 % Sodium (137-145) mmol/L Potassium (3.5-5.1) mmol/L Chloride (98-107) mmol/L Carbon Dioxide (22-30) mmol/L Anion Gap mmol/L BUN (7-17) mg/dL Creatinine (0.52-1.04) mg/dL Est GFR (CKD-EPI)AfAm (>60 ml/min/1.73 sqM) Est GFR (CKD-EPI)NonAf (>60 ml/min/1.73 sqM) Glucose (74-99) mg/dL POC Glucose (mg/dL) (75-99) mg/dL POC Glu Spinning Frame Fixer ID Lactic Ac Sepsis Rflx Y Plasma Lactic Acid Gregory 3.9 H* (0.7-2.0) mmol/L Calcium (8.4-10.2) mg/dL Magnesium (1.6-2.3) mg/dL Total Bilirubin (0.2-1.3) mg/dL AST (14-36) U/L ALT (4-34) U/L Alkaline Phosphatase (38-126) U/L Troponin I (0.000-0.034) ng/mL Total Protein (6.3-8.2) g/dL Albumin (3.5-5.0) g/dL Globulin g/dL Albumin/Globulin Ratio Amylase (30-110) U/L Lipase (23-300) U/L Coronavirus (PCR) Not Detected (Not Detectd) 11/30/20 11/30/20 11/30/20 Range/Units 06:20 07:43 10:28 WBC (3.8-10.6) k/uL RBC (3.80-5.40) m/uL Hgb (11.4-16.0) gm/dL Hct (34.0-46.0) % MCV (80.0-100.0) fL MCH (25.0-35.0) pg MCHC (31.0-37.0) g/dL RDW (11.5-15.5) % Plt Count (150-450) k/uL MPV Neutrophils % % Lymphocytes % % Monocytes % % Eosinophils % % Basophils % % Neutrophils # (1.3-7.7) k/uL Lymphocytes # (1.0-4.8) k/uL Monocytes # (0-1.0) k/uL Eosinophils # (0-0.7) k/uL Basophils # (0-0.2) k/uL Hypochromasia Anisocytosis Macrocytosis D-Dimer (<0.60) mg/L FEU Sample Site ABG pH (7.35-7.45) ABG pCO2 (35-45) mmHg ABG pO2 (83-108) mmHg ABG HCO3 (21-25) mmol/L ABG Total CO2 (19-24) mmol/L ABG O2 Saturation (94-97) % ABG Base Excess mmol/L Los Test FiO2 % Sodium 137 (137-145) mmol/L Potassium 3.2 L (3.5-5.1) mmol/L Chloride 103 (98-107) mmol/L Carbon Dioxide 24 (22-30) mmol/L Anion Gap 10 mmol/L BUN 31 H (7-17) mg/dL Creatinine 3.62 H (0.52-1.04) mg/dL Est GFR (CKD-EPI)AfAm 13 (>60 ml/min/1.73 sqM) Est GFR (CKD-EPI)NonAf 11 (>60 ml/min/1.73 sqM) Glucose 92 (74-99) mg/dL POC Glucose (mg/dL) (75-99) mg/dL POC Glu Spinning Frame Fixer ID Lactic Ac Sepsis Rflx Y Plasma Lactic Acid Gregory 3.5 H* (0.7-2.0) mmol/L Calcium 7.1 L (8.4-10.2) mg/dL Magnesium 1.8 (1.6-2.3) mg/dL Total Bilirubin (0.2-1.3) mg/dL AST (14-36) U/L ALT (4-34) U/L Alkaline Phosphatase (38-126) U/L Troponin I (0.000-0.034) ng/mL Total Protein (6.3-8.2) g/dL Albumin (3.5-5.0) g/dL Globulin g/dL Albumin/Globulin Ratio Amylase (30-110) U/L Lipase (23-300) U/L Coronavirus (PCR) (Not Detectd) 11/30/20 11/30/20 11/30/20 Range/Units 10:28 11:22 13:51 WBC (3.8-10.6) k/uL RBC (3.80-5.40) m/uL Hgb (11.4-16.0) gm/dL Hct (34.0-46.0) % MCV (80.0-100.0) fL MCH (25.0-35.0) pg MCHC (31.0-37.0) g/dL RDW (11.5-15.5) % Plt Count (150-450) k/uL MPV Neutrophils % % Lymphocytes % % Monocytes % % Eosinophils % % Basophils % % Neutrophils # (1.3-7.7) k/uL Lymphocytes # (1.0-4.8) k/uL Monocytes # (0-1.0) k/uL Eosinophils # (0-0.7) k/uL Basophils # (0-0.2) k/uL Hypochromasia Anisocytosis Macrocytosis D-Dimer (<0.60) mg/L FEU Sample Site ABG pH (7.35-7.45) ABG pCO2 (35-45) mmHg ABG pO2 (83-108) mmHg ABG HCO3 (21-25) mmol/L ABG Total CO2 (19-24) mmol/L ABG O2 Saturation (94-97) % ABG Base Excess mmol/L Los Test FiO2 % Sodium (137-145) mmol/L Potassium (3.5-5.1) mmol/L Chloride (98-107) mmol/L Carbon Dioxide (22-30) mmol/L Anion Gap mmol/L BUN (7-17) mg/dL Creatinine (0.52-1.04) mg/dL Est GFR (CKD-EPI)AfAm (>60 ml/min/1.73 sqM) Est GFR (CKD-EPI)NonAf (>60 ml/min/1.73 sqM) Glucose (74-99) mg/dL POC Glucose (mg/dL) (75-99) mg/dL POC Glu Spinning Frame Fixer ID Lactic Ac Sepsis Rflx Y Plasma Lactic Acid Gregory 2.9 H* 3.1 H* (0.7-2.0) mmol/L Calcium (8.4-10.2) mg/dL Magnesium (1.6-2.3) mg/dL Total Bilirubin (0.2-1.3) mg/dL AST (14-36) U/L ALT (4-34) U/L Alkaline Phosphatase (38-126) U/L Troponin I (0.000-0.034) ng/mL Total Protein (6.3-8.2) g/dL Albumin (3.5-5.0) g/dL Globulin g/dL Albumin/Globulin Ratio Amylase (30-110) U/L Lipase (23-300) U/L Coronavirus (PCR) (Not Detectd) 11/30/20 11/30/20 12/01/20 Range/Units 14:10 18:16 06:56 WBC (3.8-10.6) k/uL RBC (3.80-5.40) m/uL Hgb (11.4-16.0) gm/dL Hct (34.0-46.0) % MCV (80.0-100.0) fL MCH (25.0-35.0) pg MCHC (31.0-37.0) g/dL RDW (11.5-15.5) % Plt Count (150-450) k/uL MPV Neutrophils % % Lymphocytes % % Monocytes % % Eosinophils % % Basophils % % Neutrophils # (1.3-7.7) k/uL Lymphocytes # (1.0-4.8) k/uL Monocytes # (0-1.0) k/uL Eosinophils # (0-0.7) k/uL Basophils # (0-0.2) k/uL Hypochromasia Anisocytosis Macrocytosis D-Dimer (<0.60) mg/L FEU Sample Site ABG pH (7.35-7.45) ABG pCO2 (35-45) mmHg ABG pO2 (83-108) mmHg ABG HCO3 (21-25) mmol/L ABG Total CO2 (19-24) mmol/L ABG O2 Saturation (94-97) % ABG Base Excess mmol/L Los Test FiO2 % Sodium (137-145) mmol/L Potassium (3.5-5.1) mmol/L Chloride (98-107) mmol/L Carbon Dioxide (22-30) mmol/L Anion Gap mmol/L BUN (7-17) mg/dL Creatinine (0.52-1.04) mg/dL Est GFR (CKD-EPI)AfAm (>60 ml/min/1.73 sqM) Est GFR (CKD-EPI)NonAf (>60 ml/min/1.73 sqM) Glucose (74-99) mg/dL POC Glucose (mg/dL) 115 H (75-99) mg/dL POC Glu Spinning Frame Fixer ID Princess Doe Lactic Ac Sepsis Rflx Y Plasma Lactic Acid Gregory 1.9 (0.7-2.0) mmol/L Calcium (8.4-10.2) mg/dL Magnesium (1.6-2.3) mg/dL Total Bilirubin (0.2-1.3) mg/dL AST (14-36) U/L ALT (4-34) U/L Alkaline Phosphatase (38-126) U/L Troponin I (0.000-0.034) ng/mL Total Protein (6.3-8.2) g/dL Albumin (3.5-5.0) g/dL Globulin g/dL Albumin/Globulin Ratio Amylase (30-110) U/L Lipase (23-300) U/L Coronavirus (PCR) (Not Detectd) 12/01/20 12/01/20 12/01/20 Range/Units 07:07 07:49 09:42 WBC 21.3 H (3.8-10.6) k/uL RBC 3.34 L (3.80-5.40) m/uL Hgb 11.5 (11.4-16.0) gm/dL Hct 38.2 (34.0-46.0) % MCV 114.2 H D (80.0-100.0) fL MCH 34.3 (25.0-35.0) pg MCHC 30.0 L (31.0-37.0) g/dL RDW 17.1 H (11.5-15.5) % Plt Count 140 L (150-450) k/uL MPV 9.2 Neutrophils % 90 % Lymphocytes % 2 % Monocytes % 7 % Eosinophils % 0 % Basophils % 1 % Neutrophils # 19.2 H (1.3-7.7) k/uL Lymphocytes # 0.4 L (1.0-4.8) k/uL Monocytes # 1.4 H (0-1.0) k/uL Eosinophils # 0.0 (0-0.7) k/uL Basophils # 0.1 (0-0.2) k/uL Hypochromasia Marked Anisocytosis Slight Macrocytosis Marked A D-Dimer (<0.60) mg/L FEU Sample Site rbrach ABG pH 7.23 L (7.35-7.45) ABG pCO2 63 H (35-45) mmHg ABG pO2 56 L* (83-108) mmHg ABG HCO3 26 H (21-25) mmol/L ABG Total CO2 28 H (19-24) mmol/L ABG O2 Saturation 87.0 L (94-97) % ABG Base Excess -1.5 mmol/L Los Test Yes FiO2 90 % Sodium (137-145) mmol/L Potassium (3.5-5.1) mmol/L Chloride (98-107) mmol/L Carbon Dioxide (22-30) mmol/L Anion Gap mmol/L BUN (7-17) mg/dL Creatinine (0.52-1.04) mg/dL Est GFR (CKD-EPI)AfAm (>60 ml/min/1.73 sqM) Est GFR (CKD-EPI)NonAf (>60 ml/min/1.73 sqM) Glucose (74-99) mg/dL POC Glucose (mg/dL) 101 H (75-99) mg/dL POC Glu Spinning Frame Fixer ID Day, Amparo Lactic Ac Sepsis Rflx Plasma Lactic Acid Gregory (0.7-2.0) mmol/L Calcium (8.4-10.2) mg/dL Magnesium (1.6-2.3) mg/dL Total Bilirubin (0.2-1.3) mg/dL AST (14-36) U/L ALT (4-34) U/L Alkaline Phosphatase (38-126) U/L Troponin I (0.000-0.034) ng/mL Total Protein (6.3-8.2) g/dL Albumin (3.5-5.0) g/dL Globulin g/dL Albumin/Globulin Ratio Amylase (30-110) U/L Lipase (23-300) U/L Coronavirus (PCR) (Not Detectd) 12/01/20 Range/Units 11:05 WBC (3.8-10.6) k/uL RBC (3.80-5.40) m/uL Hgb (11.4-16.0) gm/dL Hct (34.0-46.0) % MCV (80.0-100.0) fL MCH (25.0-35.0) pg MCHC (31.0-37.0) g/dL RDW (11.5-15.5) % Plt Count (150-450) k/uL MPV Neutrophils % % Lymphocytes % % Monocytes % % Eosinophils % % Basophils % % Neutrophils # (1.3-7.7) k/uL Lymphocytes # (1.0-4.8) k/uL Monocytes # (0-1.0) k/uL Eosinophils # (0-0.7) k/uL Basophils # (0-0.2) k/uL Hypochromasia Anisocytosis Macrocytosis D-Dimer (<0.60) mg/L FEU Sample Site ABG pH (7.35-7.45) ABG pCO2 (35-45) mmHg ABG pO2 (83-108) mmHg ABG HCO3 (21-25) mmol/L ABG Total CO2 (19-24) mmol/L ABG O2 Saturation (94-97) % ABG Base Excess mmol/L Los Test FiO2 % Sodium 144 (137-145) mmol/L Potassium 3.3 L (3.5-5.1) mmol/L Chloride 107 (98-107) mmol/L Carbon Dioxide 25 (22-30) mmol/L Anion Gap 12 mmol/L BUN 24 H (7-17) mg/dL Creatinine 3.18 H (0.52-1.04) mg/dL Est GFR (CKD-EPI)AfAm 15 (>60 ml/min/1.73 sqM) Est GFR (CKD-EPI)NonAf 13 (>60 ml/min/1.73 sqM) Glucose 99 (74-99) mg/dL POC Glucose (mg/dL) (75-99) mg/dL POC Glu Spinning Frame Fixer ID Lactic Ac Sepsis Rflx Plasma Lactic Acid Gregory (0.7-2.0) mmol/L Calcium 8.0 L (8.4-10.2) mg/dL Magnesium (1.6-2.3) mg/dL Total Bilirubin 0.7 (0.2-1.3) mg/dL AST 27 (14-36) U/L ALT 10 (4-34) U/L Alkaline Phosphatase 115 (38-126) U/L Troponin I (0.000-0.034) ng/mL Total Protein 5.8 L (6.3-8.2) g/dL Albumin 2.4 L (3.5-5.0) g/dL Globulin 3.4 g/dL Albumin/Globulin Ratio 0.7 Amylase <30 L (30-110) U/L Lipase 12 L (23-300) U/L Coronavirus (PCR) (Not Detectd) - EKG Data -: EKG Interpreted by Me EKG shows normal: sinus rhythm (With PACs), axis (Left axis deviation), QRS complexes (Low voltage QRS complex) Rate: normal (Rate 86 bpm) Interpretation: other (Similar to comparison ECG from October) Critical Care Time Critical Care Time: Yes (30 minutes) Disposition Clinical Impression: Ascites, Hypokalemia, Abdominal pain, CKD (chronic kidney disease) Disposition: ADMITTED IP TO THIS HOSP Condition: Serious
--- NOTE | 2020-11-29 23:25 | XR ---
EXAMINATION TYPE: XR KUB DATE OF EXAM: 11/29/2020 COMPARISON: NONE HISTORY: Abdominal pain TECHNIQUE: 2 views FINDINGS: There is no sign of intestinal obstruction or pneumoperitoneum. Fecal pattern is normal. Th ere is moderate bilateral pleural effusions. There are sutures over the mid abdomen. There are clips in the pelvis. There is no evidence of abdominal mass. IMPRESSION: Nonacute abdomen. Bilateral pleural effusions.
--- NOTE | 2020-11-29 23:36 | CT ---
EXAMINATION TYPE: CT abdomen pelvis wo con DATE OF EXAM: 11/29/2020 COMPARISON: None HISTORY: ABD PAIN CT DLP: 680.20 mGycm Automated exposure control for dose reduction was used. Images obtained from the diaphragm to the floor the pelvis without contrast. There are large bilateral pleural effusions. There is bilateral basilar atelectasis. Liver is intact. The bile ducts are not dilated. There is distended gallbladder measuring 4 cm. Spleen is intact. The stomach is intact. There is density in the stomach that could be some ingested medication there is n o evidence of pancreatic mass. There is bilateral renal atrophy worse on the left side. There is no hydronephrosis. The ureters are not dilated. There is no retroperitoneal adenopathy. Bladder distends smoothly there are some surgica l clips in the pelvis. There is no inguinal hernia. There is 3 cm cortical cyst lateral right kidney . There is moderate abdominal ascites fluid. I see no sign of a bowel obstruction. Abdominal gas pattern is fairly normal. There is no free air. T here are transverse sutures across the mid abdomen on the abdominal wall. Lumbar vertebra have normal alignment. Posterior elements are intact. There is anterior spurring in t he mid and lower lumbar spine. The bony pelvis is intact. The hip joints are intact. IMPRESSION: Large bilateral pleural effusions with basilar atelectasis. Cardiomegaly. Moderate abdominal ascites.
[2020-11-30 00:23] LABS: ALT 10 U/L (4-34); AST 22 U/L (14-36); African American GFR (CKD) 13 (>60 ml/min/1.73 sqM); Albumin 2.2 g/dL (3.5-5.0); Alkaline Phosphatase 126 U/L (38-126); Amylase <30 U/L (30-110); Anion Gap 11 mmol/L; Blood Urea Nitrogen 28 mg/dL (7-17); Calcium 7.6 mg/dL (8.4-10.2); Carbon Dioxide 27 mmol/L (22-30); Chloride 99 mmol/L (98-107); Glucose 109 mg/dL (74-99); Lipase 66 U/L (23-300); Non-African American GFR(CKD) 12 (>60 ml/min/1.73 sqM); Potassium 2.9 mmol/L (3.5-5.1); Sodium 137 mmol/L (137-145); Total Bilirubin 0.8 mg/dL (0.2-1.3); Total Protein 6.1 g/dL (6.3-8.2)
[2020-11-30] MEDS ORDERED: SODIUM CHLORIDE 0.9% 500 ML 500 ML IV STA ×2 (00:35→04:39)
[2020-11-30 01:03] LABS: HGB 12.1 gm/dL (11.4-16.0); RBC 3.78 m/uL (3.80-5.40); WBC 16.8 k/uL (3.8-10.6)
[2020-11-30 01:04] LABS: HCT 40.9 % (34.0-46.0); MCH 31.9 pg (25.0-35.0); MCHC 29.5 g/dL (31.0-37.0); MCV 108.2 fL (80.0-100.0); Mean Platelet Volume 9.2; Platelet Count 174 k/uL (150-450); RDW 16.3 % (11.5-15.5)
[2020-11-30 01:05] LABS: Anisocytosis Slight; Hypochromasia Marked; Lymphocytes % (A) 6 %; Macrocytosis Marked; Monocytes % (A) 10 %; Neutrophils % (A) 83 %
[2020-11-30 01:06] LABS: Basophils % (A) 0 %; Eosinophils % (A) 0 %; Monocytes # (A) 1.7 k/uL (0-1.0); Neutrophils # (A) 13.9 k/uL (1.3-7.7)
[2020-11-30] MEDS ORDERED: VANCOMYCIN IV PER PHARMACY 1 EACH MISC MISCELLANE PRN (04:36)
[2020-11-30] MEDS ORDERED: MAG HYDROX/AL HYDROX/SIMETH 30 ML, HYOSCYAMINE ELIXIR 10 ML, LIDOCAINE VISCOUS 2% 10 ML PO STA ×6 (04:36→04:58)
[2020-11-30] MEDS ORDERED: NALOXONE 0.4 MG/ML 1 ML VIAL IV PRN (04:47)
[2020-11-30] MEDS ORDERED: MORPHINE SULFATE 4 MG/ML SYRINGE IV PRN (04:47)
[2020-11-30] MEDS ORDERED: VANCOMYCIN 1,250 MG in SODIUM CHLORIDE 0.9% 250 ML IVPB ONE (05:00)
[2020-11-30] MEDS: SODIUM CHLORIDE 0.9% 1,000 ML IV SCH (05:32)
--- NOTE | 2020-11-30 09:31 | P.NPCON ---
History of Present Illness - Reason for Consult end stage renal disease - History of Present Illness Reason for consultation: End-stage renal disease History of present illness: Patient is a 80-year-old female seen in renal consultation for end-stage renal disease. Daughter is present at bedside. Patient does not a reliable historian and is quite lethargic. She is maintained on hemodialysis on Wednesday schedule. Patient presented to the hospital with abdominal discomfort. She's been having diarrhea which according to her daughter is chronic. Yesterday her abdominal pain became more severe and she also noticed blood in her stool as well as her cough. Last hemodialysis was on . Hemoglobin stable at 12.1 as of yesterday. Patient has history of cryptogenic cirrhosis. Her last paracentesis was in September 2020. CT of the abdomen and pelvis revealed large bilateral pleural effusions as well as moderate abdominal ascites. Surgery has been consulted. Vital signs are stable. General: Appears lethargic. HEENT: Head exam is unremarkable. LUNGS: Breath sounds decreased. HEART: Rate and Rhythm are regular. ABDOMEN: Soft, generalized tenderness. Distention noted. EXTREMITITES: 2+ edema. Past Medical History Past Medical History: Hypertension, Liver Disease, Renal Disease History of Any Multi-Drug Resistant Organisms: None Reported Past Surgical History: Hysterectomy Additional Past Surgical History / Comment(s): intestinal bypass-1979, ravindra racts, let arm fistula Past Psychological History: No Psychological Hx Reported Smoking Status: Never smoker Past Alcohol Use History: None Reported Past Drug Use History: None Reported Medications and Allergies Home Medications Medication Instructions Recorded Confirmed Type Cholecalciferol [Vitamin D3 (25 125 mcg PO DAILY 10/14/20 11/30/20 History Mcg = 1000 Iu)] Cyanocobalamin (Vitamin B-12) 2,500 mcg PO DAILY 10/14/20 11/30/20 History [Vitamin B-12] PARoxetine HCL [Paxil] 20 mg PO HS 10/14/20 11/30/20 History Vit C/E/Zn/Coppr/Lutein/Zeaxan 1 cap PO BID 10/14/20 11/30/20 History [Preservision Areds 2 Softgel] calcitrioL [Rocaltrol] 0.25 mcg PO MOWEFR 10/14/20 11/30/20 History Allopurinol [Zyloprim] 100 mg PO DAILY #30 tab 10/17/20 11/30/20 Rx Furosemide [Lasix] 40 mg PO DAILY 11/08/20 11/30/20 History Potassium Chloride [Klor-Con 20] 20 meq PO DAILY 11/08/20 11/30/20 History Apixaban [Eliquis] 2.5 mg PO BID #60 tab 11/10/20 11/30/20 Rx Nystatin 100,000 Unit/ml Susp 500,000 unit PO QID #250 ml 11/18/20 11/30/20 Rx [Mycostatin Oral Susp] Sodium Bicarbonate Tab 650 mg PO DAILY tab 11/18/20 11/30/20 Rx Verapamil Sr [Isoptin Sr] 120 mg PO HS #30 tablet.er 11/18/20 11/30/20 Rx Lidocaine-Prilocaine Cream [Emla 1 applic TOPICAL DAILY PRN 11/30/20 11/30/20 History Cream 2.5%/2.5%] Midodrine HCl [ProAmatine] 10 mg PO DIRECTED 11/30/20 11/30/20 History metroNIDAZOLE [Flagyl] 500 mg PO BID 11/30/20 11/30/20 History Allergies Allergy/AdvReac Type Severity Reaction Status Date / Time amoxicillin AdvReac thrush Verified 11/30/20 07:46 klor-con packet AdvReac "gerard Uncoded 11/30/20 07:46 mouth" Physical Exam Vitals: Vital Signs Temp Pulse Resp BP Pulse Ox 11/30/20 05:34 97.8 F 60 16 99/54 100 11/30/20 01:10 50 L 16 100/45 100 11/29/20 23:49 98.8 F 56 L 18 100/48 100 11/29/20 22:19 74 18 95/58 100 Intake and Output 11/29/20 11/30/20 11/30/20 22:59 06:59 14:59 Other: Weight 71.214 kg Results - Lab Results Most recent lab results Calcium 7.6 mg/dL (8.4-10.2) L 11/29/20 23:41 11/29/20 23:41 11/29/20 23:41 Assessment and Plan Plan: Assessment: 1. End-stage renal disease maintained on hemodialysis on Wednesday schedule. She has a left upper extremity AV fistula. 2. Cryptogenic cirrhosis with ascites. 3. Volume overload. 4. Hypokalemia from poor intake. Rule out magnesium deficiency. 5. GI bleed and hemoptysis. Surgery consulted. Hemoglobin stable. Plan: Hemodialysis today. 25 g IV albumin 2 doses today. Check labs today. Add midodrine. May need paracentesis as well as thoracentesis this admission. Thank you for the consultation. I will continue to follow the patient with you during her hospital stay.
[2020-11-30] MEDS ORDERED: LIDOCAINE-PRILOCAINE 2.5-2.5% CREAM 5 GM TUBE TOPICAL PRN (10:13)
[2020-11-30] MEDS ORDERED: NON FORMULARY DRUG (Midodrine Hcl [Proamatine] 10 MG Tablet) PO SCH (10:15)
--- NOTE | 2020-11-30 10:46 | P.GSCN ---
History of Present Illness Consult date: 11/30/20 History of present illness: 80-year-old female presents to the emergency department with her daughter with complaints of abdominal pain in the lower abdomen. She is noted to have a history of cryptogenic cirrhosis with ascites formation and has had a recent hospital admission secondary to this. She is also known to be on hemodialysis. Patient's daughter states the patient also has been more confused recently. On workup, she is found to have leukocytosis and CT of the abdomen and pelvis shows bilateral pleural effusions and a moderate amount of ascites. Based on emergency doctor evaluation, he is concerned for SBP and has started patient on IV antibiotics. Review of Systems All systems: negative Past Medical History Past Medical History: Hypertension, Liver Disease, Renal Disease History of Any Multi-Drug Resistant Organisms: None Reported Past Surgical History: Hysterectomy Additional Past Surgical History / Comment(s): intestinal bypass-1979, cataracts, let arm fistula Past Psychological History: No Psychological Hx Reported Smoking Status: Never smoker Past Alcohol Use History: None Reported Past Drug Use History: None Reported Medications and Allergies Home Medications Medication Instructions Recorded Confirmed Type Cholecalciferol [Vitamin D3 (25 125 mcg PO DAILY 10/14/20 11/30/20 History Mcg = 1000 Iu)] Cyanocobalamin (Vitamin B-12) 2,500 mcg PO DAILY 10/14/20 11/30/20 History [Vitamin B-12] PARoxetine HCL [Paxil] 20 mg PO HS 10/14/20 11/30/20 History Vit C/E/Zn/Coppr/Lutein/Zeaxan 1 cap PO BID 10/14/20 11/30/20 History [Preservision Areds 2 Softgel] calcitrioL [Rocaltrol] 0.25 mcg PO MOWEFR 10/14/20 11/30/20 History Allopurinol [Zyloprim] 100 mg PO DAILY #30 tab 10/17/20 11/30/20 Rx Furosemide [Lasix] 40 mg PO DAILY 11/08/20 11/30/20 History Potassium Chloride [Klor-Con 20] 20 meq PO DAILY 11/08/20 11/30/20 History Apixaban [Eliquis] 2.5 mg PO BID #60 tab 11/10/20 11/30/20 Rx Nystatin 100,000 Unit/ml Susp 500,000 unit PO QID #250 ml 11/18/20 11/30/20 Rx [Mycostatin Oral Susp] Sodium Bicarbonate Tab 650 mg PO DAILY tab 11/18/20 11/30/20 Rx Verapamil Sr [Isoptin Sr] 120 mg PO HS #30 tablet.er 11/18/20 11/30/20 Rx Lidocaine-Prilocaine Cream [Emla 1 applic TOPICAL DAILY PRN 11/30/20 11/30/20 History Cream 2.5%/2.5%] Midodrine HCl [ProAmatine] 10 mg PO DIRECTED 11/30/20 11/30/20 History metroNIDAZOLE [Flagyl] 500 mg PO BID 11/30/20 11/30/20 History Allergies Allergy/AdvReac Type Severity Reaction Status Date / Time amoxicillin AdvReac thrush Verified 11/30/20 07:46 klor-con packet AdvReac "gerard Uncoded 11/30/20 07:46 mouth" Surgical - Exam Osteopathic Statement: *. No significant issues noted on an osteopathic structural exam other than those noted in the History and Physical/Consult. Vital Signs Pulse Resp BP Pulse Ox 74 18 95/58 100 11/29/20 22:19 11/29/20 22:19 11/29/20 22:19 11/29/20 22:19 - General no distress - Eyes normal ocular movement - Neck trachea midline - Respiratory normal respiratory effort - Abdomen Soft, palpable masslike lesion in the suprapubic region that is tender to palpation, nondistended, no rebound, no guarding Results - Labs 11/29/20 23:41 11/29/20 23:41 Abnormal Lab Results - Last 24 Hours (Table) 11/29/20 11/29/20 11/29/20 Range/Units 23:41 23:41 23:41 WBC 16.8 H (3.8-10.6) k/uL RBC 3.78 L (3.80-5.40) m/uL MCV 108.2 H (80.0-100.0) fL MCHC 29.5 L (31.0-37.0) g/dL RDW 16.3 H (11.5-15.5) % Neutrophils # 13.9 H (1.3-7.7) k/uL Monocytes # 1.7 H (0-1.0) k/uL Macrocytosis Marked A D-Dimer 7.05 H (<0.60) mg/L FEU Potassium 2.9 L (3.5-5.1) mmol/L BUN 28 H (7-17) mg/dL Creatinine 3.47 H (0.52-1.04) mg/dL Glucose 109 H (74-99) mg/dL Plasma Lactic Acid Gregory (0.7-2.0) mmol/L Calcium 7.6 L (8.4-10.2) mg/dL Total Protein 6.1 L (6.3-8.2) g/dL Albumin 2.2 L (3.5-5.0) g/dL Amylase <30 L (30-110) U/L 11/29/20 11/30/20 11/30/20 Range/Units 23:41 03:23 06:20 WBC (3.8-10.6) k/uL RBC (3.80-5.40) m/uL MCV (80.0-100.0) fL MCHC (31.0-37.0) g/dL RDW (11.5-15.5) % Neutrophils # (1.3-7.7) k/uL Monocytes # (0-1.0) k/uL Macrocytosis D-Dimer (<0.60) mg/L FEU Potassium (3.5-5.1) mmol/L BUN (7-17) mg/dL Creatinine (0.52-1.04) mg/dL Glucose (74-99) mg/dL Plasma Lactic Acid Gregory 5.7 H* 3.9 H* 3.5 H* (0.7-2.0) mmol/L Calcium (8.4-10.2) mg/dL Total Protein (6.3-8.2) g/dL Albumin (3.5-5.0) g/dL Amylase (30-110) U/L Diabetes panel 11/29/20 Range/Units 23:41 Sodium 137 (137-145) mmol/L Potassium 2.9 L (3.5-5.1) mmol/L Chloride 99 (98-107) mmol/L Carbon Dioxide 27 (22-30) mmol/L BUN 28 H (7-17) mg/dL Creatinine 3.47 H (0.52-1.04) mg/dL Glucose 109 H (74-99) mg/dL Calcium 7.6 L (8.4-10.2) mg/dL AST 22 (14-36) U/L ALT 10 (4-34) U/L Alkaline Phosphatase 126 (38-126) U/L Total Protein 6.1 L (6.3-8.2) g/dL Albumin 2.2 L (3.5-5.0) g/dL Calcium panel 11/29/20 Range/Units 23:41 Calcium 7.6 L (8.4-10.2) mg/dL Albumin 2.2 L (3.5-5.0) g/dL Pituitary panel 11/29/20 Range/Units 23:41 Sodium 137 (137-145) mmol/L Potassium 2.9 L (3.5-5.1) mmol/L Chloride 99 (98-107) mmol/L Carbon Dioxide 27 (22-30) mmol/L BUN 28 H (7-17) mg/dL Creatinine 3.47 H (0.52-1.04) mg/dL Glucose 109 H (74-99) mg/dL Calcium 7.6 L (8.4-10.2) mg/dL Adrenal panel 11/29/20 Range/Units 23:41 Sodium 137 (137-145) mmol/L Potassium 2.9 L (3.5-5.1) mmol/L Chloride 99 (98-107) mmol/L Carbon Dioxide 27 (22-30) mmol/L BUN 28 H (7-17) mg/dL Creatinine 3.47 H (0.52-1.04) mg/dL Glucose 109 H (74-99) mg/dL Calcium 7.6 L (8.4-10.2) mg/dL Total Bilirubin 0.8 (0.2-1.3) mg/dL AST 22 (14-36) U/L ALT 10 (4-34) U/L Alkaline Phosphatase 126 (38-126) U/L Total Protein 6.1 L (6.3-8.2) g/dL Albumin 2.2 L (3.5-5.0) g/dL Assessment and Plan Plan: 80-year-old female with history of cryptogenic cirrhosis, ascites and renal failure. She is being followed by nephrology and has seen GI during her last admission secondary to these issues. ED doctor is concerned of possible SBP and IV antibiotics have been started. Based on the patient's physical exam of a hard mass like lesion to palpation in the suprapubic region along with evaluation of the CT that does show a significant amount of ascites in that same region, I would recommend paracentesis with evaluation of the fluid to confirm the working area of SBP along with relieving the patient's discomfort. Patient has undergone paracentesis previously. GI consult has been placed. There is no plan for acute surgical intervention at this time, we'll continue to follow and make recommendations based on the patient's clinical progress.
[2020-11-30] MEDS: ALBUMIN HUMAN 25% 50 ML in EMPTY BAG 1 BAG IVPB SCH ×4 (10:57→18:20)
[2020-11-30 11:14] LABS: African American GFR (CKD) 13 (>60 ml/min/1.73 sqM); Anion Gap 10 mmol/L; Blood Urea Nitrogen 31 mg/dL (7-17); Calcium 7.1 mg/dL (8.4-10.2); Carbon Dioxide 24 mmol/L (22-30); Chloride 103 mmol/L (98-107); Glucose 92 mg/dL (74-99); Magnesium 1.8 mg/dL (1.6-2.3); Non-African American GFR(CKD) 11 (>60 ml/min/1.73 sqM); Potassium 3.2 mmol/L (3.5-5.1); Sodium 137 mmol/L (137-145)
[2020-11-30] MEDS ORDERED: traMADol 50 MG TAB PO PRN (14:03)
--- NOTE | 2020-11-30 14:14 | P.HPIM ---
History of Present Illness 80-year-old gentleman reason female came in with complaints of for generalized weakness and mild hemoptysis and bright red blood per rectum. Patient is end- stage renal disease on hemodialysis patient is also on Eliquis 2.5 mg twice a day for atrial fibrillation. 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 Patient was comparing of abdominal pain was still complaining of abdominal pain sharp in nature significant improved compared to yesterday. P atient does have some ascites mostly has subcutaneous edema patient has significant pedal edema patient doesn't make much of urine. CT of the abdomen was done which did show ascites. Patient appears to be bit volume overloaded. Chest x-ray showing pulmonary edema without any pneumonia. Patient has mild cough without any significant sputum production but hemoptysis secondary to anticoagulation. Patient the was started on antibiotics with concerns of spotting back back to peritonitis patient is not behaving like typical in his back to peritonitis but anyway will continue with antibiotics ultrasound-guided paracentesis will be obtained mostly for diagnostic purposes. Patient increasing generalized weakness is secondary to her chronic medical problems that his liver failure and end-stage renal disease and her prognosis is poor same thing was discussed with the family members. Patient does have leukocytosis which is persistent since her last hospitalization. Review of Systems REVIEW OF SYSTEMS: CONSTITUTIONAL: As mentioned in HPI HEENT: No recent visual problems or hearing problems. Denied any sore throat. CARDIOVASCULAR: No chest pain, orthopnea, PND, no palpitations, no syncope. PULMONARY: No shortness of breath, no hemoptysis. GASTROINTESTINAL: As mentioned in HPI NEUROLOGICAL: No headaches, no weakness, no numbness. HEMATOLOGICAL: Denies any bleeding or petechiae. GENITOURINARY: Denies any burning micturition, frequency, or urgency. MUSCULOSKELETAL/RHEUMATOLOGICAL: Denies any joint pain, swelling, or any muscle pain. ENDOCRINE: Denies any polyuria or polydipsia. The rest of the 14-point review of systems is negative. Past Medical History Past Medical History: Hypertension, Liver Disease, Renal Disease History of Any Multi-Drug Resistant Organisms: None Reported Past Surgical History: Hysterectomy Additional Past Surgical History / Comment(s): intestinal bypass-1979, cataracts, let arm fistula Past Psychological History: No Psychological Hx Reported Smoking Status: Never smoker Past Alcohol Use History: None Reported Past Drug Use History: None Reported Medications and Allergies Home Medications Medication Instructions Recorded Confirmed Type Cholecalciferol [Vitamin D3 (25 125 mcg PO DAILY 10/14/20 11/30/20 History Mcg = 1000 Iu)] Cyanocobalamin (Vitamin B-12) 2,500 mcg PO DAILY 10/14/20 11/30/20 History [Vitamin B-12] PARoxetine HCL [Paxil] 20 mg PO HS 10/14/20 11/30/20 History Vit C/E/Zn/Coppr/Lutein/Zeaxan 1 cap PO BID 10/14/20 11/30/20 History [Preservision Areds 2 Softgel] calcitrioL [Rocaltrol] 0.25 mcg PO MOWEFR 10/14/20 11/30/20 History Allopurinol [Zyloprim] 100 mg PO DAILY #30 tab 10/17/20 11/30/20 Rx Furosemide [Lasix] 40 mg PO DAILY 11/08/20 11/30/20 History Potassium Chloride [Klor-Con 20] 20 meq PO DAILY 11/08/20 11/30/20 History Apixaban [Eliquis] 2.5 mg PO BID #60 tab 11/10/20 11/30/20 Rx Nystatin 100,000 Unit/ml Susp 500,000 unit PO QID #250 ml 11/18/20 11/30/20 Rx [Mycostatin Oral Susp] Sodium Bicarbonate Tab 650 mg PO DAILY tab 11/18/20 11/30/20 Rx Verapamil Sr [Isoptin Sr] 120 mg PO HS #30 tablet.er 11/18/20 11/30/20 Rx Lidocaine-Prilocaine Cream [Emla 1 applic TOPICAL DAILY PRN 11/30/20 11/30/20 History Cream 2.5%/2.5%] Midodrine HCl [ProAmatine] 10 mg PO DIRECTED 11/30/20 11/30/20 History metroNIDAZOLE [Flagyl] 500 mg PO BID 11/30/20 11/30/20 History Allergies Allergy/AdvReac Type Severity Reaction Status Date / Time amoxicillin AdvReac thrush Verified 11/30/20 07:46 klor-con packet AdvReac "gerard Uncoded 11/30/20 07:46 mouth" Physical Exam Vitals: Vital Signs Temp Pulse Resp BP Pulse Ox 11/30/20 12:42 100 18 106/63 98 11/30/20 05:34 97.8 F 60 16 99/54 100 11/30/20 01:10 50 L 16 100/45 100 11/29/20 23:49 98.8 F 56 L 18 100/48 100 11/29/20 22:19 74 18 95/58 100 Intake and Output 11/29/20 11/30/20 11/30/20 22:59 06:59 14:59 Other: Weight 71.214 kg PHYSICAL EXAMINATION: GENERAL: The patient is alert and oriented x3, elderly female sick looking appears to be tired and weak HEENT: Pupils are round and equally reacting to light. EOMI. No scleral icterus. No conjunctival pallor. Normocephalic, atraumatic. No pharyngeal erythema. No thyromegaly. CARDIOVASCULAR: S1 and S2 present. No murmurs, rubs, or gallops. PULMONARY: Chest is clear to auscultation, no wheezing or crackles. ABDOMEN: Significant subcutaneous edema mild ascites clinically some abdominal tenderness in the left lower quadrant area. Bowel sounds are present MUSCULOSKELETAL: No joint swelling or deformity. EXTREMITIES: No cyanosis, clubbing, does have pedal edema NEUROLOGICAL: Gross neurological examination did not reveal any focal deficits. SKIN: No rashes. Results CBC & Chem 7: 11/29/20 23:41 11/30/20 10:28 Labs: Abnormal Lab Results - Last 24 Hours (Table) 11/29/20 11/29/20 11/29/20 Range/Units 23:41 23:41 23:41 WBC 16.8 H (3.8-10.6) k/uL RBC 3.78 L (3.80-5.40) m/uL MCV 108.2 H (80.0-100.0) fL MCHC 29.5 L (31.0-37.0) g/dL RDW 16.3 H (11.5-15.5) % Neutrophils # 13.9 H (1.3-7.7) k/uL Monocytes # 1.7 H (0-1.0) k/uL Macrocytosis Marked A D-Dimer 7.05 H (<0.60) mg/L FEU Potassium 2.9 L (3.5-5.1) mmol/L BUN 28 H (7-17) mg/dL Creatinine 3.47 H (0.52-1.04) mg/dL Glucose 109 H (74-99) mg/dL Plasma Lactic Acid Gregory (0.7-2.0) mmol/L Calcium 7.6 L (8.4-10.2) mg/dL Total Protein 6.1 L (6.3-8.2) g/dL Albumin 2.2 L (3.5-5.0) g/dL Amylase <30 L (30-110) U/L 11/29/20 11/30/20 11/30/20 Range/Units 23:41 03:23 06:20 WBC (3.8-10.6) k/uL RBC (3.80-5.40) m/uL MCV (80.0-100.0) fL MCHC (31.0-37.0) g/dL RDW (11.5-15.5) % Neutrophils # (1.3-7.7) k/uL Monocytes # (0-1.0) k/uL Macrocytosis D-Dimer (<0.60) mg/L FEU Potassium (3.5-5.1) mmol/L BUN (7-17) mg/dL Creatinine (0.52-1.04) mg/dL Glucose (74-99) mg/dL Plasma Lactic Acid Gregory 5.7 H* 3.9 H* 3.5 H* (0.7-2.0) mmol/L Calcium (8.4-10.2) mg/dL Total Protein (6.3-8.2) g/dL Albumin (3.5-5.0) g/dL Amylase (30-110) U/L 11/30/20 11/30/20 Range/Units 10:28 10:28 WBC (3.8-10.6) k/uL RBC (3.80-5.40) m/uL MCV (80.0-100.0) fL MCHC (31.0-37.0) g/dL RDW (11.5-15.5) % Neutrophils # (1.3-7.7) k/uL Monocytes # (0-1.0) k/uL Macrocytosis D-Dimer (<0.60) mg/L FEU Potassium 3.2 L (3.5-5.1) mmol/L BUN 31 H (7-17) mg/dL Creatinine 3.62 H (0.52-1.04) mg/dL Glucose (74-99) mg/dL Plasma Lactic Acid Gregory 2.9 H* (0.7-2.0) mmol/L Calcium 7.1 L (8.4-10.2) mg/dL Total Protein (6.3-8.2) g/dL Albumin (3.5-5.0) g/dL Amylase (30-110) U/L Assessment and Plan Plan: -Generalized weakness and tiredness: mostly secondary to her chronic medical pr oblems that is cirrhosis and the renal failure patient prognosis overall is poor same thing was discussed with the family members. Physical therapy occupational therapy consultation will be obtained and patient most probably will need placement in subacute rehabilitation. -Hemoptysis and lower GI bleed: Secondary to anticoagulation which will be held gastro-oncology will be consulted -Abdominal pain possibility of spontaneous retroperitonitis cannot be ruled out will obtain ultrasound at guided paracentesis and patient will be continued on Rocephin for now -Idiopathic cirrhosis -Hyperkalemia potassium will be replaced -Paroxysmal atrial fibrillation
[2020-11-30] MEDS: MIDODRINE 5 MG TAB PO SCH ×2 (15:46→17:40)
[2020-11-30] MEDS: NYSTATIN 100,000 UNIT/ML SUSP 500,000 UNIT/5 ML CUP PO SCH ×4 (15:46→20:56)
[2020-11-30] MEDS: VIT A,C & E-LUTEIN-MINERALS 1 EACH TAB PO SCH (20:56)
[2020-11-30] MEDS ORDERED: PARoxetine 20 MG TAB PO SCH (21:00)
[2020-11-30] MEDS ORDERED: VERAPAMIL SR 120 MG TABLET.ER PO SCH (21:00)
[2020-11-30] MEDS ORDERED: ALBUTEROL NEBULIZED 2.5 MG/3 ML INHALATION STA (21:08)
--- NOTE | 2020-11-30 22:23 | XR ---
EXAMINATION TYPE: XR chest 1V DATE OF EXAM: 11/30/2020 COMPARISON: 11/16/2020. HISTORY: Shortness of breath. TECHNIQUE: Single frontal view of the chest is obtained. FINDINGS: There is bilateral diffuse moderate opacities predominantly in the perihilar region. There are moderate right and trace left pleural effusions. No pneumothorax. Stable cardiomegaly. No acute osseous abnormality. IMPRESSION: Moderate to marked CHF with superimposed infiltrate not excluded. Moderate right and small left pleural effusions.
[2020-12-01] MEDS ORDERED: FUROSEMIDE 10 MG/ML 4 ML VIAL IV STA (01:18)
--- NOTE | 2020-12-01 04:25 | P.EN ---
A team note Activated at 3:48 am. Arrived on the scene shortly after. Reviewed the chart and discussed the case with the RN. The patient was admitted to the medicine service for fatigue and generalized weakness believed to be due to her multiple chronic conditions including liver and kidney failure. The patient was noted to have worsening hypoxia by the RN with tachypnea noted. CXR was ordered by the primary team which showed CHF with congestion and pleural effusions. The patient was subsequently placed on non-rebreather mask with 100% FiO2. BiPAP was ordered earlier which was not tolerated well. The vitals at the bedside were bp 111/68, P 99, SpO2 91-96%, and T 97.6. On examination, the elderly F appeared to be in moderate respiratory distress. Cardiovascular examination reveals S1-S2 without murmur. Lung examination revealed diffuse bilateral rales. Anasarca was noted diffusely. Assessment/plan Acute hypoxic respiratory failure, likely secondary to fluid overload in setting of ESRD and liver failure -The patient is hemodialysis dependent and is anuric -Recommend emergent hemodialysis -Lasix 80 mg IV push were ordered by primary -RN discussing with dialysis center to set up emergent hemodialysis -Primary team notified by RN
[2020-12-01] MEDS ORDERED: VANCOMYCIN 1,250 MG in SODIUM CHLORIDE 0.9% 250 ML IVPB ONE (06:00)
[2020-12-01 07:04] LABS: Glucose,Whole Blood 115 mg/dL (75-99)
[2020-12-01 07:19] LABS: ABG Base Excess -1.5 mmol/L; ABG HCO3 26 mmol/L (21-25); ABG PCO2 63 mmHg (35-45); ABG PH 7.23 (7.35-7.45); ABG TCO2 28 mmol/L (19-24); Allen Test Performed? Yes
--- NOTE | 2020-12-01 07:32 | P.EN ---
I responded to a rapid response team called by nursing staff around 7 AM for patient with worsening hypoxia. Upon arrival to the patient's room patient was awake and alert. She appeared chronically ill. She was maintained on BiPAP with pressure of 10/5 and 100% FiO2 satting around 85%. Patient has a complex underlying medical problems including idiopathic liver cirrhosis with hep atorenal syndrome recently started on hemodialysis. Patient received dialysis last night with approximately 2 L of fluid removed. Her chest x-ray last night showed evidence of worsening pulmonary edema. Patient does not make any urine. She received 80 mg of IV Lasix yesterday. There was a confusion regarding her CODE STATUS as nursing staff believes that her family want her to get cardiac resuscitation but no intubation. I called her daughter and her DURABLE POWER OF EDUCATION MANAGER to clarify CODE STATUS and she and formation that she would like the patient to be full code and after intubation and resuscitation if there is no improvement within she and her family will make further decisions. As best to obtain a stat blood gas that showed a pH of 7.23, PaO2 of 55, PaCO2 of 62. I advised to transfer the patient to the ICU. Lift Slab Operator paged per hospital protocol for acceptance and I'm waiting for his call back. Patient may require intubation. I asked the respiratory therapist to get an actual BiPAP machine as patient was maintained on a small portable machine may not be as effective. I ordered a repeat stat chest x-ray. As nursing staff to page attending physician and nephrology to consider further dialysis.
--- NOTE | 2020-12-01 07:38 | XR ---
EXAMINATION TYPE: XR chest 1V portable DATE OF EXAM: 12/01/2020 COMPARISON: 11/30/2020 INDICATION: Short of breath TECHNIQUE: Single frontal view of the chest is obtained. FINDINGS: The heart size is enlarged. The pulmonary vasculature is prominent. There is diffuse increased lung markings the lung bases. Findings are stable. IMPRESSION: 1. Clinical correlation is recommended for congestive heart failure and atypical pneumonia
[2020-12-01 07:51] LABS: Glucose,Whole Blood 101 mg/dL (75-99)
[2020-12-01 08:24] LABS: ABG PO2 56 mmHg (83-108)
[2020-12-01] MEDS: MIDODRINE 5 MG TAB PO SCH ×3 (08:42→14:30)
[2020-12-01] MEDS ORDERED: CHOLECALCIFEROL 25 MCG (1000 IU) TABLET PO SCH (09:00)
--- NOTE | 2020-12-01 09:45 | P.PN ---
Subjective Patient is seen in follow for end-stage renal disease. She is maintained on hemodialysis on Wednesday schedule. Patient underwent hemodialysis yesterday evening with 2 L at of attrition. Last night patient became more short of breath and was transferred to the intensive care unit. She is currently on BiPAP. Family is present at bedside. Vital signs are stable. General: Frail-appearing. HEENT: Currently on BiPAP. LUNGS: Breath sounds decreased. HEART: Rate and Rhythm are regular. ABDOMEN: Distention noted. EXTREMITITES: 2+ edema. Objective - Vital Signs Vital signs: Vital Signs Temp 94.9 F L 12/01/20 08:00 Pulse 94 12/01/20 08:00 Resp 33 H 12/01/20 08:00 BP 100/45 12/01/20 08:00 Pulse Ox 94 L 12/01/20 08:00 Intake & Output 11/30/20 12/01/20 12/01/20 18:59 06:59 18:59 Intake Total 130 0 Output Total 0 Balance 130 0 0 Weight 71.214 kg Intake: Intake, IV Titration 130 Amount Albumin Human 25% 50 ml 50 In Empty Bag 1 bag @ 50 mls/hr IVPB Q1H [facility] Rx#: [id number] Sodium Chloride 0.9% 1, 80 000 ml @ 20 mls/hr IV . Q24H [facility] Rx#:[id number] Oral 0 Output: Urine 0 Other: Voiding Method Diaper # Voids 0 - Labs CBC & Chem 7: 11/29/20 23:41 11/30/20 10:28 Labs: Abnormal Lab Results - Last 24 Hours (Table) 11/30/20 11/30/20 11/30/20 Range/Units 10:28 10:28 13:51 ABG pH (7.35-7.45) ABG pCO2 (35-45) mmHg ABG pO2 (83-108) mmHg ABG HCO3 (21-25) mmol/L ABG Total CO2 (19-24) mmol/L ABG O2 Saturation (94-97) % Potassium 3.2 L (3.5-5.1) mmol/L BUN 31 H (7-17) mg/dL Creatinine 3.62 H (0.52-1.04) mg/dL POC Glucose (mg/dL) (75-99) mg/dL Plasma Lactic Acid Gregory 2.9 H* 3.1 H* (0.7-2.0) mmol/L Calcium 7.1 L (8.4-10.2) mg/dL 12/01/20 12/01/20 12/01/20 Range/Units 06:56 07:07 07:49 ABG pH 7.23 L (7.35-7.45) ABG pCO2 63 H (35-45) mmHg ABG pO2 56 L* (83-108) mmHg ABG HCO3 26 H (21-25) mmol/L ABG Total CO2 28 H (19-24) mmol/L ABG O2 Saturation 87.0 L (94-97) % Potassium (3.5-5.1) mmol/L BUN (7-17) mg/dL Creatinine (0.52-1.04) mg/dL POC Glucose (mg/dL) 115 H 101 H (75-99) mg/dL Plasma Lactic Acid Gregory (0.7-2.0) mmol/L Calcium (8.4-10.2) mg/dL Microbiology - Last 24 Hours (Table) 11/30/20 00:50 Blood Culture - Preliminary Blood No Growth after 24 hours 11/30/20 01:00 Blood Culture - Preliminary Blood No Growth after 24 hours Assessment and Plan Plan: Assessment: 1. End-stage renal disease maintained on hemodialysis on Wednesday schedule. She has a left upper extremity AV fistula. 2. Cryptogenic cirrhosis with ascites. 3. Volume overload. 4. Hypokalemia from poor intake. 5. GI bleed and hemoptysis. Surgery consulted. Hemoglobin stable at 12.1 as of 11/29/20. 6. Acute hypoxic respiratory failure. Currently on BiPAP. Plan: Hemodialysis today with goal 2 L ultrafiltration as able to tolerate. Check labs today. Maintain midodrine - however she is not able to take oral meds at this time. Paracentesis pending. Patient refusing intubation. Case discussed with the daughter who is present at bedside. Overall prognosis guarded. Case discussed with ICU team.
--- NOTE | 2020-12-01 10:03 | P.PN ---
Subjective Progress Note Date: 12/01/20 Patient seen and examined at bedside. Overnight, patient did have multiple respiratory events and is currently in the ICU on BiPAP. Currently denying abdominal pain to me, however admitting to abdominal pain to the patient's family. Family is at bedside. Objective - Vital Signs Vital signs: Vital Signs Temp 94.9 F L 12/01/20 08:00 Pulse 94 12/01/20 08:00 Resp 33 H 12/01/20 08:00 BP 100/45 12/01/20 08:00 Pulse Ox 94 L 12/01/20 08:00 Intake & Output 11/30/20 12/01/20 12/01/20 18:59 06:59 18:59 Intake Total 130 0 Output Total 0 Balance 130 0 0 Weight 71.214 kg Intake: Intake, IV Titration 130 Amount Albumin Human 25% 50 ml 50 In Empty Bag 1 bag @ 50 mls/hr IVPB Q1H [facility] Rx#: [id number] Sodium Chloride 0.9% 1, 80 000 ml @ 20 mls/hr IV . Q24H [facility] Rx#:[id number] Oral 0 Output: Urine 0 Other: Voiding Method Diaper # Voids 0 - Respiratory Details: On BiPAP - Gastrointestinal Gastrointestinal Comment(s): Unchanged abdominal exam from yesterday, palpable hard area in the suprapubic region, likely secondary to ascites, no rebound, no guarding - Musculoskeletal Musculoskeletal: Present: generalized weakness - Labs CBC & Chem 7: 11/29/20 23:41 11/30/20 10:28 Labs: Abnormal Lab Results - Last 24 Hours (Table) 11/30/20 11/30/20 11/30/20 Range/Units 10:28 10:28 13:51 ABG pH (7.35-7.45) ABG pCO2 (35-45) mmHg ABG pO2 (83-108) mmHg ABG HCO3 (21-25) mmol/L ABG Total CO2 (19-24) mmol/L ABG O2 Saturation (94-97) % Potassium 3.2 L (3.5-5.1) mmol/L BUN 31 H (7-17) mg/dL Creatinine 3.62 H (0.52-1.04) mg/dL POC Glucose (mg/dL) (75-99) mg/dL Plasma Lactic Acid Gregory 2.9 H* 3.1 H* (0.7-2.0) mmol/L Calcium 7.1 L (8.4-10.2) mg/dL 12/01/20 12/01/20 12/01/20 Range/Units 06:56 07:07 07:49 ABG pH 7.23 L (7.35-7.45) ABG pCO2 63 H (35-45) mmHg ABG pO2 56 L* (83-108) mmHg ABG HCO3 26 H (21-25) mmol/L ABG Total CO2 28 H (19-24) mmol/L ABG O2 Saturation 87.0 L (94-97) % Potassium (3.5-5.1) mmol/L BUN (7-17) mg/dL Creatinine (0.52-1.04) mg/dL POC Glucose (mg/dL) 115 H 101 H (75-99) mg/dL Plasma Lactic Acid Gregory (0.7-2.0) mmol/L Calcium (8.4-10.2) mg/dL Microbiology - Last 24 Hours (Table) 11/30/20 00:50 Blood Culture - Preliminary Blood No Growth after 24 hours 11/30/20 01:00 Blood Culture - Preliminary Blood No Growth after 24 hours Assessment and Plan Plan: 80-year-old female with history of liver failure and renal failure. Patient is currently on BiPAP secondary to respiratory distress. Overall, prognosis is poor due to the patient's clinical history and current clinical status. I would recommend discussion on goals of care. We will defer to gastroenterology and pulmonology for decision on paracentesis and thoracentesis after discussion with the patient's family. No plan for acute surgical intervention.
[2020-12-01 10:16] LABS: Anisocytosis Slight; Basophils # (A) 0.1 k/uL (0-0.2); Basophils % (A) 1 %; Eosinophils % (A) 0 %; HCT 38.2 % (34.0-46.0); HGB 11.5 gm/dL (11.4-16.0); Hypochromasia Marked; Lymphocytes # (A) 0.4 k/uL (1.0-4.8); Lymphocytes % (A) 2 %; MCH 34.3 pg (25.0-35.0); Macrocytosis Marked; Mean Platelet Volume 9.2; Monocytes # (A) 1.4 k/uL (0-1.0); Monocytes % (A) 7 %; Neutrophils # (A) 19.2 k/uL (1.3-7.7); Neutrophils % (A) 90 %; Platelet Count 140 k/uL (150-450); RBC 3.34 m/uL (3.80-5.40); RDW 17.1 % (11.5-15.5); WBC 21.3 k/uL (3.8-10.6)
[2020-12-01 10:21] LABS: MCV 114.2 fL (80.0-100.0)
--- NOTE | 2020-12-01 10:54 | XR ---
EXAMINATION TYPE: XR chest 1V portable DATE OF EXAM: 12/01/2020 COMPARISON: 12/01/2020 earlier exam INDICATION: Post central line insertion TECHNIQUE: Single frontal view of the chest is obtained. FINDINGS: The heart size is normal. The pulmonary vasculature is normal. Patchy bilateral lung infiltrates are present notably in the perihilar regions. There are some air br onchograms present. Aeration has improved over the interval. There is insertion of a left central venous catheter, tips in the right atrium. No pneumothorax is ev ident. IMPRESSION: 1. Patchy bilateral lung infiltrates with slight improvement. 2. Left central venous catheter tip is in the right atrium, no pneumothorax is evident.
[2020-12-01] MEDS: SODIUM CHLORIDE 0.9% 1,000 ML IV SCH (11:29)
[2020-12-01] MEDS: SODIUM BICARBONATE TAB 650 MG TAB PO SCH ×2 (11:32→11:43)
[2020-12-01] MEDS: CYANOCOBALAMIN 500 MCG TAB PO SCH ×2 (11:32→11:43)
[2020-12-01] MEDS: allopurinoL 100 MG TAB PO SCH ×2 (11:36→11:42)
[2020-12-01] MEDS: NYSTATIN 100,000 UNIT/ML SUSP 500,000 UNIT/5 ML CUP PO SCH ×3 (11:41→14:30)
[2020-12-01] MEDS: VIT A,C & E-LUTEIN-MINERALS 1 EACH TAB PO SCH (11:42)
[2020-12-01 11:43] LABS: ALT 10 U/L (4-34); AST 27 U/L (14-36); African American GFR (CKD) 15 (>60 ml/min/1.73 sqM); Albumin 2.4 g/dL (3.5-5.0); Albumin/Globulin Ratio 0.7; Alkaline Phosphatase 115 U/L (38-126); Amylase <30 U/L (30-110); Anion Gap 12 mmol/L; Blood Urea Nitrogen 24 mg/dL (7-17); Carbon Dioxide 25 mmol/L (22-30); Chloride 107 mmol/L (98-107); Globulin 3.4 g/dL; Glucose 99 mg/dL (74-99); Lipase 12 U/L (23-300); Non-African American GFR(CKD) 13 (>60 ml/min/1.73 sqM); Potassium 3.3 mmol/L (3.5-5.1); Sodium 144 mmol/L (137-145); Total Bilirubin 0.7 mg/dL (0.2-1.3); Total Protein 5.8 g/dL (6.3-8.2)
--- NOTE | 2020-12-01 12:01 | PCN ---
PROCEDURE NOTE PROCEDURE PERFORMED: Left internal jugular triple-lumen catheter. PREOP DIAGNOSIS: Administration of fluids and pressors. POSTOP DIAGNOSIS: Administration of fluids and pressors. There was no immediate complication. OPERATORS: Dr. Trujillo and Dr. Morrow. TRIPLE LUMEN CATHETER PLACEMENT: Indication: Hemodynamic monitoring/Intravenous access. A time-out was completed verifying correct patient, procedure, site, positioning, and implant(s) or special equipment if applicable. The patient was placed in a dependent position appropriate for triple lumen catheter placement based on the vein to be cannulated. The patient's left neck was prepped and draped in sterile fashion. 1% Lidocaine was used to anesthetize the surrounding skin area. A triple lumen 9F Cordis catheter was introduced into the left internal jugular vein using Seldinger technique. The catheter was threaded smoothly over the guide wire and appropriate blood return was obtained. Each lumen of the catheter was evacuated of air and flushed with sterile saline. The catheter was then sutured in place to the skin and a sterile dressing applied. Perfusion to the extremity distal to the point of catheter insertion was checked and found to be adequate. There was informed consent and universal timeout. We used the left internal jugular site. Again there was no immediate complications. There was good blood return from all 3 ports. The patient tolerated the procedure well. The catheter was sutured in place. A sterile dressing was applied by the nurse. The tip of the catheter was seen in the right atrium. MMODL / IJN: [id number] /
--- NOTE | 2020-12-01 12:05 | PCN ---
PROCEDURE NOTE PROCEDURE PERFORMED: Paracentesis abdominis. OPERATORS: Dr. Trujillo and Dr. Morrow. PROCEDURE: The abdomen was cleaned with chlorhexidine. It was draped. Skin and deeper tissues were anesthetized with lidocaine. The paracentesis needle catheter device was inserted into the abdominal cavity. Unfortunately, there was only minimal fluid to be able to be removed from the abdominal cavity. The patient tolerated the procedure well. Catheter was removed. There was no immediate complication. The patient tolerated the procedure well. A bandage was placed over the area of the attempted paracentesis. MMODL / IJN: [id number] /
--- NOTE | 2020-12-01 12:24 | P.CNPUL ---
History of Present Illness Consult date: 12/01/20 Requesting physician: Deven Morelos Reason for consult: hypoxemia, other Chief complaint: Respiratory failure. History of present illness: 80-year-old female, presented to the emergency department on 11/29/2020. She apparently came in with a diagnosis of abdominal pain. She apparently has a his tory of cirrhosis. She also has history of renal failure, and is on hemodialysis. In addition, she is thought to have ascites as well. I was called by one of the nurses because the rapid response team was called on this patient. The patient was lethargic, she was placed on BiPAP, her BiPAP settings were 12/6 and 100%. Arterial blood gases showed a PaO2 of 56, pCO2 of 63, pH is 7.23. The patient was transferred down to the ICU for further monitoring and management. The patient is not receiving any IV fluids. We spoke to the space systems operations craftsman, and the patient did have hemodialysis on November 30, and 2 L was removed. I attempted a paracentesis today, but no fluid was able to be removed. We did place a left internal jugular triple-lumen catheter in her. She has to receive hemodialysis today. I did have a long conversation with her and her daughter, Junaid, and they were clear that the patient would not want intubation and mechanical ventilation. Short of that, they would like us to do everything to try to get her back to her previous state of health. She has a history of hypertension, end-stage renal disease, and chronic liver disease with ascites. She does have a fistula in her left arm. Labs today include a white count 21.3, hemoglobin 11.5, hematocrit 38.2, and platelet count of 140,000. Sodium 144, potassium 3.3, chlorides 107, CO2 25, anion gap 12, BUN 24, cre atinine 3.18. Chest x-ray shows a properly placed central line, and diffuse bilateral infiltrates. Review of Systems REVIEW OF SYSTEMS: CONSTITUTIONAL: Lethargic and somnolent. NEUROLOGIC: Depressed level of consciousness. HEENT: [ Negative.] CARDIAC: [Negative.] PULMONARY: Shortness of breath, impending respiratory failure. GI: Abdominal pain. : [Negative.] RHEUMATOLOGIC: [ Negative.] IMMUNOLOGIC: [ Negative.] ENDOCRINE: [Negative. 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, cataracts, let arm fistula Past Anesthesia/Blood Transfusion Reactions: No Reported Reaction Past Psychological History: No Psychological Hx Reported Smoking Status: Never smoker Past Alcohol Use History: None Reported Past Drug Use History: None Reported Medications and Allergies Home Medications Medication Instructions Recorded Confirmed Type Cholecalciferol [Vitamin D3 (25 125 mcg PO DAILY 10/14/20 11/30/20 History Mcg = 1000 Iu)] Cyanocobalamin (Vitamin B-12) 2,500 mcg PO DAILY 10/14/20 11/30/20 History [Vitamin B-12] PARoxetine HCL [Paxil] 20 mg PO HS 10/14/20 11/30/20 History Vit C/E/Zn/Coppr/Lutein/Zeaxan 1 cap PO BID 10/14/20 11/30/20 History [Preservision Areds 2 Softgel] calcitrioL [Rocaltrol] 0.25 mcg PO MOWEFR 10/14/20 11/30/20 History Allopurinol [Zyloprim] 100 mg PO DAILY #30 tab 10/17/20 11/30/20 Rx Furosemide [Lasix] 40 mg PO DAILY 11/08/20 11/30/20 History Potassium Chloride [Klor-Con 20] 20 meq PO DAILY 11/08/20 11/30/20 History Apixaban [Eliquis] 2.5 mg PO BID #60 tab 11/10/20 11/30/20 Rx Nystatin 100,000 Unit/ml Susp 500,000 unit PO QID #250 ml 11/18/20 11/30/20 Rx [Mycostatin Oral Susp] Sodium Bicarbonate Tab 650 mg PO DAILY tab 11/18/20 11/30/20 Rx Verapamil Sr [Isoptin Sr] 120 mg PO HS #30 tablet.er 11/18/20 11/30/20 Rx Lidocaine-Prilocaine Cream [Emla 1 applic TOPICAL DAILY PRN 11/30/20 11/30/20 History Cream 2.5%/2.5%] Midodrine HCl [ProAmatine] 10 mg PO DIRECTED 11/30/20 11/30/20 History metroNIDAZOLE [Flagyl] 500 mg PO BID 11/30/20 11/30/20 History Allergies Allergy/AdvReac Type Severity Reaction Status Date / Time amoxicillin AdvReac thrush Verified 11/30/20 07:46 klor-con packet AdvReac "gerard Uncoded 11/30/20 07:46 mouth" Physical Exam Osteopathic Statement: *. No significant issues noted on an osteopathic structural exam other than those noted in the History and Physical/Consult. Vitals: Vital Signs Temp Pulse Pulse Resp BP BP Pulse Ox 12/01/20 08:00 94.9 F L 94 33 H 100/45 94 L 12/01/20 05:00 97.5 F L 90 24 97/52 94 L 12/01/20 04:06 97 11/30/20 22:30 97.6 F 55 L 28 H 117/71 86 L 11/30/20 19:35 97.4 F L 93 28 H 99/48 96 11/30/20 12:42 100 18 106/63 98 Intake and Output 11/30/20 12/01/20 12/01/20 22:59 06:59 14:59 Intake Total 130 0 Output Total 0 Balance 130 0 0 Intake: Intake, IV Titration 130 Amount Albumin Human 25% 50 ml 50 In Empty Bag 1 bag @ 50 mls/hr IVPB Q1H [facility] Rx#: [id number] Sodium Chloride 0.9% 1, 80 000 ml @ 20 mls/hr IV . Q24H [facility] Rx#:[id number] Oral 0 Output: Urine 0 Other: Voiding Method Diaper # Voids 0 Tachypneic, lethargic and somnolent, BiPAP mask in place HEENT examination is grossly unremarkable. Mucous membranes are dry. Neck supple. Full range of motion. No adenopathy thyromegaly or neck vein distention. Cardiovascular examination reveals regular rhythm rate. S1-S2 normal. No S3 or S4. No discernible murmur noted. Heart rate 94 bpm. Heart sounds are distant. Lungs reveal diffuse bilateral rhonchi and crackles. Breath sounds are coarse. No wheezes. Breath sounds equal bilaterally. Abdomen is soft, with bowel sounds. No masses. No tenderness. Difficult to know if there is a fluid wave. Extremities are intact. No cyanosis or clubbing. Mild edema noted. Skin is without rash or lesion. Neurologic examination reveals a very lethargic/somnolent patient who does arouse, attempts to answer questions. Results - Laboratory Findings CBC and BMP: 12/01/20 09:42 12/01/20 11:05 ABG ABG pH 7.23 (7.35-7.45) L 12/01/20 07:07 ABG pCO2 63 mmHg (35-45) H 12/01/20 07:07 ABG pO2 56 mmHg (83-108) L* 12/01/20 07:07 ABG O2 Saturation 87.0 % (94-97) L 12/01/20 07:07 PT/INR, D-dimer D-Dimer 7.05 mg/L FEU (<0.60) H 11/29/20 23:41 Abnormal lab findings: Abnormal Labs 11/29/20 11/29/20 11/29/20 23:41 23:41 23:41 WBC 16.8 H RBC 3.78 L MCV 108.2 H MCHC 29.5 L RDW 16.3 H Plt Count Neutrophils # 13.9 H Lymphocytes # Monocytes # 1.7 H Macrocytosis Marked A D-Dimer 7.05 H ABG pH ABG pCO2 ABG pO2 ABG HCO3 ABG Total CO2 ABG O2 Saturation Potassium 2.9 L BUN 28 H Creatinine 3.47 H Glucose 109 H POC Glucose (mg/dL) Plasma Lactic Acid Gregory Calcium 7.6 L Total Protein 6.1 L Albumin 2.2 L Amylase <30 L Lipase 11/29/20 11/30/20 11/30/20 23:41 03:23 06:20 WBC RBC MCV MCHC RDW Plt Count Neutrophils # Lymphocytes # Monocytes # Macrocytosis D-Dimer ABG pH ABG pCO2 ABG pO2 ABG HCO3 ABG Total CO2 ABG O2 Saturation Potassium BUN Creatinine Glucose POC Glucose (mg/dL) Plasma Lactic Acid Gregory 5.7 H* 3.9 H* 3.5 H* Calcium Total Protein Albumin Amylase Lipase 11/30/20 11/30/20 11/30/20 10:28 10:28 13:51 WBC RBC MCV MCHC RDW Plt Count Neutrophils # Lymphocytes # Monocytes # Macrocytosis D-Dimer ABG pH ABG pCO2 ABG pO2 ABG HCO3 ABG Total CO2 ABG O2 Saturation Potassium 3.2 L BUN 31 H Creatinine 3.62 H Glucose POC Glucose (mg/dL) Plasma Lactic Acid Gregory 2.9 H* 3.1 H* Calcium 7.1 L Total Protein Albumin Amylase Lipase 12/01/20 12/01/20 12/01/20 06:56 07:07 07:49 WBC RBC MCV MCHC RDW Plt Count Neutrophils # Lymphocytes # Monocytes # Macrocytosis D-Dimer ABG pH 7.23 L ABG pCO2 63 H ABG pO2 56 L* ABG HCO3 26 H ABG Total CO2 28 H ABG O2 Saturation 87.0 L Potassium BUN Creatinine Glucose POC Glucose (mg/dL) 115 H 101 H Plasma Lactic Acid Gregory Calcium Total Protein Albumin Amylase Lipase 12/01/20 12/01/20 09:42 11:05 WBC 21.3 H RBC 3.34 L MCV 114.2 H D MCHC 30.0 L RDW 17.1 H Plt Count 140 L Neutrophils # 19.2 H Lymphocytes # 0.4 L Monocytes # 1.4 H Macrocytosis Marked A D-Dimer ABG pH ABG pCO2 ABG pO2 ABG HCO3 ABG Total CO2 ABG O2 Saturation Potassium 3.3 L BUN 24 H Creatinine 3.18 H Glucose POC Glucose (mg/dL) Plasma Lactic Acid Gregory Calcium 8.0 L Total Protein 5.8 L Albumin 2.4 L Amylase <30 L Lipase 12 L - Diagnostic Findings Chest x-ray: image reviewed Assessment and Plan Assessment: Hypoxemic respiratory failure, likely related to fluid overload, in a patient with end-stage renal disease. History of end-stage renal disease, currently on 3 times a week hemodialysis. History of idiopathic chronic liver disease and cirrhosis, with ascites. History of chronic abdominal pain. History of hypertension. Generalized weakness and inundation. Paroxysmal atrial fibrillation. Plan: Plan dated 12/01/2020. A rapid response team was called to the patient on the fifth floor. The patient's respiratory status was poor, she was placed on BiPAP. She was transferred down to the intensive care unit. Arterial blood gases show pO2 of 56, pCO2 63, and a pH is 7.23. She did receive hemodialysis yesterday, and 2 L was removed. Initially, the patient was a full code, but after talking to the family, including her and daughter, it was decided the patient would not be intubated and mechanically ventilated. The patient will get hemodialysis today. I attempted a paracentesis abdominis, but no ascitic fluid was removed. In addition, a left internal jugular triple-lumen catheter was placed. Chest x-ray was reviewed. Medications are reviewed. Prognosis is guarded. Time with Patient: Greater than 30
--- NOTE | 2020-12-01 12:34 | P.CONS ---
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 Patient had been feeling increasingly weak over the past few days. She has recently been started on hemodialysis and is on a Wednesday, , Wednesday schedule. Patient had been also having increased abdominal distention and previously underwent paracentesis the last time was in October 13. On presentation to the hospital patient had a WBC 21.3, hemoglobin 11.5 stable from 12.1, platelet count 140,000, creatinine 3.62, potassium 2.9 with computed tomography scan performed in evaluation significant for moderate ascites with large bilateral pleural effusion. Concern was for possible spontaneous bacterial peritonitis and patient has been started on antibiotic therapy. Currently she is in the ICU receiving BiPAP or shortness of breath. No signs or symptoms of GI bleeding since presentation. Review of Systems REVIEW OF SYSTEMS: CONSTITUTIONAL: Denies any fevers, chills, she has been having increasing fatigue and weight gain in association with fluid overload. CARDIOVASCULAR: Denies any chest pain, palpitations high or low blood pressures. RESPIRATORY: Denies any hemoptysis or cough the patient has been having shortness of breath currently on BiPAP. GENITOURINARY: No dysuria or hematuria. MUSCULOSKELETAL: No weakness reported. SKIN: Denies any new rashes or lesions, jaundice or pallor. PSYCHIATRIC: Denies any depression or anxiety. NEUROLOGY: Denies headache, denies any new focal deficits. EARS/NOSE/THROAT: No recent hearing change, congestion, nasal discharge or sore throat. EYES: No pain in eyes, discharge or change in vision. GASTROINTESTINAL: As per HPI. 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 Medications and Allergies Home Medications Medication Instructions Recorded Confirmed Type Cholecalciferol [Vitamin D3 (25 125 mcg PO DAILY 10/14/20 11/30/20 History Mcg = 1000 Iu)] Cyanocobalamin (Vitamin B-12) 2,500 mcg PO DAILY 10/14/20 11/30/20 History [Vitamin B-12] PARoxetine HCL [Paxil] 20 mg PO HS 10/14/20 11/30/20 History Vit C/E/Zn/Coppr/Lutein/Zeaxan 1 cap PO BID 10/14/20 11/30/20 History [Preservision Areds 2 Softgel] calcitrioL [Rocaltrol] 0.25 mcg PO MOWEFR 10/14/20 11/30/20 History Allopurinol [Zyloprim] 100 mg PO DAILY #30 tab 10/17/20 11/30/20 Rx Furosemide [Lasix] 40 mg PO DAILY 11/08/20 11/30/20 History Potassium Chloride [Klor-Con 20] 20 meq PO DAILY 11/08/20 11/30/20 History Apixaban [Eliquis] 2.5 mg PO BID #60 tab 11/10/20 11/30/20 Rx Nystatin 100,000 Unit/ml Susp 500,000 unit PO QID #250 ml 11/18/20 11/30/20 Rx [Mycostatin Oral Susp] Sodium Bicarbonate Tab 650 mg PO DAILY tab 11/18/20 11/30/20 Rx Verapamil Sr [Isoptin Sr] 120 mg PO HS #30 tablet.er 11/18/20 11/30/20 Rx Lidocaine-Prilocaine Cream [Emla 1 applic TOPICAL DAILY PRN 11/30/20 11/30/20 History Cream 2.5%/2.5%] Midodrine HCl [ProAmatine] 10 mg PO DIRECTED 11/30/20 11/30/20 History metroNIDAZOLE [Flagyl] 500 mg PO BID 11/30/20 11/30/20 History Allergies Allergy/AdvReac Type Severity Reaction Status Date / Time amoxicillin AdvReac thrush Verified 11/30/20 07:46 klor-con packet AdvReac "gerard Uncoded 11/30/20 07:46 mouth" Physical Exam Vitals: Vital Signs Temp Pulse Pulse Resp BP BP Pulse Ox 12/01/20 08:00 94.9 F L 94 33 H 100/45 94 L 12/01/20 05:00 97.5 F L 90 24 97/52 94 L 12/01/20 04:06 97 11/30/20 22:30 97.6 F 55 L 28 H 117/71 86 L 11/30/20 19:35 97.4 F L 93 28 H 99/48 96 11/30/20 12:42 100 18 106/63 98 Intake and Output 11/30/20 12/01/20 12/01/20 22:59 06:59 14:59 Intake Total 130 0 Output Total 0 Balance 130 0 0 Intake: Intake, IV Titration 130 Amount Albumin Human 25% 50 ml 50 In Empty Bag 1 bag @ 50 mls/hr IVPB Q1H DURAN Rx#: [id number] Sodium Chloride 0.9% 1, 80 000 ml @ 20 mls/hr IV . Q24H DURAN Rx#:[id number] Oral 0 Output: Urine 0 Other: Voiding Method Diaper # Voids 0 On physical examination, patient appears comfortable in no apparent distress. HEAD: Normocephalic, atraumatic. EYES: No scleral icterus. No conjunctival injection. MOUTH: No lesions, tongue midline, patient currently has BiPAP. NECK: Trachea midline, no gross abnormalities. CHEST: Decreased air entry in all lung valdez. HEART: S1-S2 appreciated. ABDOMEN: Soft, moderately distended with positive fluid wave. Bowel sounds are positive. No organomegaly. No guarding or rigidity. EXTREMITIES: Bilateral pedal edema. SKIN: No rashes, no jaundice. NEUROLOGIC: Alert and oriented to person. Results CBC & Chem 7: 12/01/20 09:42 12/01/20 11:05 Labs: Abnormal Lab Results - Last 24 Hours (Table) 11/30/20 11/30/20 11/30/20 Range/Units 10:28 10:28 13:51 WBC (3.8-10.6) k/uL RBC (3.80-5.40) m/uL MCV (80.0-100.0) fL MCHC (31.0-37.0) g/dL RDW (11.5-15.5) % Plt Count (150-450) k/uL Neutrophils # (1.3-7.7) k/uL Lymphocytes # (1.0-4.8) k/uL Monocytes # (0-1.0) k/uL Macrocytosis ABG pH (7.35-7.45) ABG pCO2 (35-45) mmHg ABG pO2 (83-108) mmHg ABG HCO3 (21-25) mmol/L ABG Total CO2 (19-24) mmol/L ABG O2 Saturation (94-97) % Potassium 3.2 L (3.5-5.1) mmol/L BUN 31 H (7-17) mg/dL Creatinine 3.62 H (0.52-1.04) mg/dL POC Glucose (mg/dL) (75-99) mg/dL Plasma Lactic Acid Gregory 2.9 H* 3.1 H* (0.7-2.0) mmol/L Calcium 7.1 L (8.4-10.2) mg/dL 12/01/20 12/01/20 12/01/20 Range/Units 06:56 07:07 07:49 WBC (3.8-10.6) k/uL RBC (3.80-5.40) m/uL MCV (80.0-100.0) fL MCHC (31.0-37.0) g/dL RDW (11.5-15.5) % Plt Count (150-450) k/uL Neutrophils # (1.3-7.7) k/uL Lymphocytes # (1.0-4.8) k/uL Monocytes # (0-1.0) k/uL Macrocytosis ABG pH 7.23 L (7.35-7.45) ABG pCO2 63 H (35-45) mmHg ABG pO2 56 L* (83-108) mmHg ABG HCO3 26 H (21-25) mmol/L ABG Total CO2 28 H (19-24) mmol/L ABG O2 Saturation 87.0 L (94-97) % Potassium (3.5-5.1) mmol/L BUN (7-17) mg/dL Creatinine (0.52-1.04) mg/dL POC Glucose (mg/dL) 115 H 101 H (75-99) mg/dL Plasma Lactic Acid Gregory (0.7-2.0) mmol/L Calcium (8.4-10.2) mg/dL 12/01/20 Range/Units 09:42 WBC 21.3 H (3.8-10.6) k/uL RBC 3.34 L (3.80-5.40) m/uL MCV 114.2 H D (80.0-100.0) fL MCHC 30.0 L (31.0-37.0) g/dL RDW 17.1 H (11.5-15.5) % Plt Count 140 L (150-450) k/uL Neutrophils # 19.2 H (1.3-7.7) k/uL Lymphocytes # 0.4 L (1.0-4.8) k/uL Monocytes # 1.4 H (0-1.0) k/uL Macrocytosis Marked A ABG pH (7.35-7.45) ABG pCO2 (35-45) mmHg ABG pO2 (83-108) mmHg ABG HCO3 (21-25) mmol/L ABG Total CO2 (19-24) mmol/L ABG O2 Saturation (94-97) % Potassium (3.5-5.1) mmol/L BUN (7-17) mg/dL Creatinine (0.52-1.04) mg/dL POC Glucose (mg/dL) (75-99) mg/dL Plasma Lactic Acid Gregory (0.7-2.0) mmol/L Calcium (8.4-10.2) mg/dL Microbiology - Last 24 Hours (Table) 11/30/20 00:50 Blood Culture - Preliminary Blood No Growth after 24 hours 11/30/20 01:00 Blood Culture - Preliminary Blood No Growth after [address] scan - abdomen: report reviewed (Computed tomography scan of the abdomen with findings of moderate ascites with bilateral pleural effusion.) Assessment and Plan Assessment: 1. Decompensated cirrhosis of the liver: Patient with a history of decompensated cirrhosis with ascites who presented due to weakness, abdominal distention and some blood per rectum. No further episodes of blood per rectum and hemoglobin stable at 11.5 from 12.1. Computed tomography scan significant for large bilateral pleural effusions and moderate ascites. Currently she is receiving BiPAP. She has recently been started on hemodialysis on a Wednesday, , Wednesday schedule. Fluid overload likely multifactorial and secondary to end-stage renal disease and cirrhosis of the liver. 2. Ascites. 3. Shortness of breath secondary to abdominal distention from ascites as well as bilateral pleural effusions currently on BiPAP. 4. End-stage renal disease on hemodialysis. 5. Other medical comorbidities per primary team Plan: Supportive care Okay for diet as tolerated Continue ICU management, currently on BiPAP Nephrology service consulted for hemodialysis and management of diuretic therapy Ultrasound paracentesis with fluid studies ordered Continue empiric ceftriaxone for possible SBP Continue other medical management for consulting services No plan for endoscopy at this time Thank you for allowing us to participate in the care of the patient
[2020-12-01] MEDS: POTASSIUM CHLORIDE 20 MEQ in WATER FOR INJECTION 1 100ML.BAG IVPB SCH ×2 (14:31→16:21)
[2020-12-01] MEDS ORDERED: NOREPINEPHRINE 8 MG in SODIUM CHLORIDE 0.9% 250 ML IV SCH (15:15)
--- NOTE | 2020-12-01 16:13 | P.PN ---
Subjective 80-year-old female came in with complaints of for generalized weakness and mild hemoptysis and bright red blood per rectum. Patient is end-stage renal disease on hemodialysis patient is also on Eliquis 2.5 mg twice a day for atrial fibrillation. 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 Patient was comparing of abdominal pain was still complaining of abdominal pain sharp in nature significant improved compared to yesterday. Patient does have some ascites mostly has subcutaneous edema patient has significant pedal edema patient doesn't make much of urine. CT of the abdomen was done which did show ascites. Patient appears to be bit volume overloaded. Chest x-ray showing pulmonary edema without any pneumonia. Patient has mild cough without any significant sputum production but hemoptysis secondary to anticoagulation. Patient the was started on antibiotics with concerns of spotting back back to peritonitis patient is not behaving like typical in his back to peritonitis but anyway will continue with antibiotics ultrasound-guided paracentesis will be obtained mostly for diagnostic purposes. Patient increasing generalized weakness is secondary to her chronic medical problems that his liver failure and end-stage renal disease and her prognosis is poor same thing was discussed with the family members. Patient does have leukocytosis which is persistent since her last hospitalization. 12/01/2020 Patient became hydromorphone more hypoxic secondary to volume overload ended up on BiPAP subsequently transferred to intensive care unit. Patient is on 100% FiO2 on BiPAP. Paracentesis was attempted and unable to remove the fluid. Patient mostly has subcutaneous edema rather than ascites. Review of systems: Unable to obtain due to her clinical condition All inpatient medications were reviewed and appropriate changes in these medications as dictated in the interval history and assessment and plan. Objective - Vital Signs Vital signs: Vital Signs Temp 96.5 F L 12/01/20 12:00 Pulse 89 12/01/20 15:00 Resp 29 H 12/01/20 15:00 BP 86/50 12/01/20 15:00 Pulse Ox 94 L 12/01/20 15:00 Intake & Output 11/30/20 12/01/20 12/01/20 18:59 06:59 18:59 Intake Total 130 0 110 Output Total 0 Balance 130 0 110 Weight 71.214 kg Intake: Intake, IV Titration 130 110 Amount Albumin Human 25% 50 ml 50 In Empty Bag 1 bag @ 50 mls/hr IVPB Q1H [facility] Rx#: [id number] Sodium Chloride 0.9% 1, 80 60 000 ml @ 20 mls/hr IV . Q24H [facility] Rx#:[id number] cefTRIAXone 1 gm In 50 Sodium Chloride 0.9% 50 ml @ 100 mls/hr IVPB DAILY [facility] Rx#:[id number] Oral 0 Output: Urine 0 Other: Voiding Method Diaper # Voids 0 - Exam PHYSICAL EXAMINATION: GENERAL: Patient is on the BiPAP HEENT: Pupils are round and equally reacting to light. EOMI. No scleral icterus. No conjunctival pallor. Normocephalic, atraumatic. No pharyngeal erythema. No thyromegaly. CARDIOVASCULAR: S1 and S2 present. No murmurs, rubs, or gallops. PULMONARY: Chest is clear to auscultation, no wheezing or crackles. ABDOMEN: Significant subcutaneous edema mild ascites clinically some abdominal tenderness in the left lower quadrant area. Bowel sounds are present MUSCULOSKELETAL: No joint swelling or deformity. EXTREMITIES: No cyanosis, clubbing, does have pedal edema NEUROLOGICAL: Gross neurological examination did not reveal any focal deficits. SKIN: No rashes. - Labs CBC & Chem 7: 12/01/20 09:42 12/01/20 11:05 Labs: Abnormal Lab Results - Last 24 Hours (Table) 12/01/20 12/01/20 12/01/20 Range/Units 06:56 07:07 07:49 WBC (3.8-10.6) k/uL RBC (3.80-5.40) m/uL MCV (80.0-100.0) fL MCHC (31.0-37.0) g/dL RDW (11.5-15.5) % Plt Count (150-450) k/uL Neutrophils # (1.3-7.7) k/uL Lymphocytes # (1.0-4.8) k/uL Monocytes # (0-1.0) k/uL Macrocytosis ABG pH 7.23 L (7.35-7.45) ABG pCO2 63 H (35-45) mmHg ABG pO2 56 L* (83-108) mmHg ABG HCO3 26 H (21-25) mmol/L ABG Total CO2 28 H (19-24) mmol/L ABG O2 Saturation 87.0 L (94-97) % Potassium (3.5-5.1) mmol/L BUN (7-17) mg/dL Creatinine (0.52-1.04) mg/dL POC Glucose (mg/dL) 115 H 101 H (75-99) mg/dL Calcium (8.4-10.2) mg/dL Total Protein (6.3-8.2) g/dL Albumin (3.5-5.0) g/dL Amylase (30-110) U/L Lipase (23-300) U/L 12/01/20 12/01/20 Range/Units 09:42 11:05 WBC 21.3 H (3.8-10.6) k/uL RBC 3.34 L (3.80-5.40) m/uL MCV 114.2 H D (80.0-100.0) fL MCHC 30.0 L (31.0-37.0) g/dL RDW 17.1 H (11.5-15.5) % Plt Count 140 L (150-450) k/uL Neutrophils # 19.2 H (1.3-7.7) k/uL Lymphocytes # 0.4 L (1.0-4.8) k/uL Monocytes # 1.4 H (0-1.0) k/uL Macrocytosis Marked A ABG pH (7.35-7.45) ABG pCO2 (35-45) mmHg ABG pO2 (83-108) mmHg ABG HCO3 (21-25) mmol/L ABG Total CO2 (19-24) mmol/L ABG O2 Saturation (94-97) % Potassium 3.3 L (3.5-5.1) mmol/L BUN 24 H (7-17) mg/dL Creatinine 3.18 H (0.52-1.04) mg/dL POC Glucose (mg/dL) (75-99) mg/dL Calcium 8.0 L (8.4-10.2) mg/dL Total Protein 5.8 L (6.3-8.2) g/dL Albumin 2.4 L (3.5-5.0) g/dL Amylase <30 L (30-110) U/L Lipase 12 L (23-300) U/L Microbiology - Last 24 Hours (Table) 11/30/20 00:50 Blood Culture - Preliminary Blood No Growth after 24 hours 11/30/20 01:00 Blood Culture - Preliminary Blood No Growth after 24 hours Assessment and Plan Plan: -Acute hypoxic respiratory failure secondary to fluid overload patient has end- stage renal disease patient probably has hepatorenal syndrome patient is on hemodialysis will probably undergo hemodialysis today -Generalized weakness and tiredness: mostly secondary to her chronic medical problems that is cirrhosis and the renal failure patient prognosis overall is poor same thing was discussed with the family members. Physical therapy occupational therapy consultation will be obtained and patient most probably will need placement in subacute rehabilitation. -Hemoptysis and lower GI bleed: Secondary to anticoagulation which will be held gastroenterology evaluated the patient -Abdominal pain possibility of spontaneous bacterial peritonitis cannot be ruled out , patient is being continued on Rocephin. Unable to obtain any fluid via thoracentesis -Idiopathic cirrhosis -Hyperkalemia potassium was replaced -Paroxysmal atrial fibrillation Her overall prognosis is extremely poor. Family wants to continue medical care short of intubation and mechanical ventilation
[2020-12-01 16:19] VITALS: TEMP 96.4
[2020-12-01] MEDS ORDERED: MORPHINE SULFATE 2 MG/ML SYRINGE IVP ONE (19:54)
[2020-12-01] MEDS ORDERED: SCOPOLAMINE 1.5MG/72HR PATCH TRANSDERM SCH (20:30)
[2020-12-01] MEDS ORDERED: MORPHINE SULFATE (100 MG/2 ML) 100 MG in SODIUM CHLORIDE 0.9% 100 ML IV SCH (20:30)
[2020-12-01 21:13] VITALS: BP 89/57; PULSE 103; RESP 18
--- NOTE | 2020-12-02 17:18 | P.DS ---
Providers Date of admission: 12/01/20 22:44 Expected date of discharge: 12/01/20 Attending physician: Deven Morelos Consults: 11/30/20 04:50 Consult Physician Urgent Consulting Provider: Moraima Bhardwaj Consult Reason/Comments: abdominal pain Do you want consulting provider notified?: Already Contacted 11/30/20 04:51 Consult Physician Routine Consulting Provider: Maynor Marcus Consult Reason/Comments: dialysis patient Do you want consulting provider notified?: Yes 11/30/20 10:40 Consult Physician Routine Consulting Provider: Atul Garcia Consult Reason/Comments: Ascites, cirrhosis, known to you Do you want consulting provider notified?: Yes 11/30/20 22:39 Consult Physician Urgent Consulting Provider: Michael Trujillo Consult Reason/Comments: hypoxia Do you want consulting provider notified?: Yes Primary care physician: Stated None Hospital Course: Patient was admitted the for generalized weakness does have cirrhosis and the cardiorenal syndrome her prognosis was extremely poor patient was transferred to ICU because of hypoxic respiratory failure which is secondary to pulmonary edema from end-stage renal disease. Patient was on pressor support. Discussed with the daughter yesterday. Unsure what were the events that the lead to family's decision of comfort care, from the documentation it appears like patient was started on morphine drip subsequently . Her prognosis is extremely poor, during the day family wanted her to be resuscitated that these do CPR but no intubation. Although patient is more appropriate for hospice and comfort care. Patient Condition at Discharge: Serious Plan - Discharge Summary Discharge Rx Participant: No New Discharge Prescriptions: No Action Vit C/E/Zn/Coppr/Lutein/Zeaxan [Preservision Areds 2 Softgel] 1 cap PO BID Cyanocobalamin (Vitamin B-12) [Vitamin B-12] 2,500 mcg PO DAILY PARoxetine HCL [Paxil] 20 mg PO HS Cholecalciferol [Vitamin D3 (25 Mcg = 1000 Iu)] 125 mcg PO DAILY calcitrioL [Rocaltrol] 0.25 mcg PO MOWEFR Allopurinol [Zyloprim] 100 mg PO DAILY #30 tab Potassium Chloride [Klor-Con 20] 20 meq PO DAILY Furosemide [Lasix] 40 mg PO DAILY Apixaban [Eliquis] 2.5 mg PO BID #60 tab Nystatin 100,000 Unit/ml Susp [Mycostatin Oral Susp] 500,000 unit PO QID #250 ml Sodium Bicarbonate Tab 650 mg PO DAILY tab Lidocaine-Prilocaine Cream [Emla Cream 2.5%/2.5%] 1 applic TOPICAL DAILY PRN PRN Reason: port access metroNIDAZOLE [Flagyl] 500 mg PO BID Verapamil Sr [Isoptin Sr] 120 mg PO HS #30 tablet.er Midodrine HCl [ProAmatine] 10 mg PO DIRECTED Discharge Medication List Cholecalciferol [Vitamin D3 (25 Mcg = 1000 Iu)] 125 mcg PO DAILY 10/14/20 [History] Cyanocobalamin (Vitamin B-12) [Vitamin B-12] 2,500 mcg PO DAILY 10/14/20 [History] PARoxetine HCL [Paxil] 20 mg PO HS 10/14/20 [History] Vit C/E/Zn/Coppr/Lutein/Zeaxan [Preservision Areds 2 Softgel] 1 cap PO BID 10/14/20 [History] calcitrioL [Rocaltrol] 0.25 mcg PO MOWEFR 10/14/20 [History] Allopurinol [Zyloprim] 100 mg PO DAILY #30 tab 10/17/20 [Rx] Furosemide [Lasix] 40 mg PO DAILY 11/08/20 [History] Potassium Chloride [Klor-Con 20] 20 meq PO DAILY 11/08/20 [History] Apixaban [Eliquis] 2.5 mg PO BID #60 tab 11/10/20 [Rx] Nystatin 100,000 Unit/ml Susp [Mycostatin Oral Susp] 500,000 unit PO QID #250 ml 11/18/20 [Rx] Sodium Bicarbonate Tab 650 mg PO DAILY tab 11/18/20 [Rx] Verapamil Sr [Isoptin Sr] 120 mg PO HS #30 tablet.er 11/18/20 [Rx] Lidocaine-Prilocaine Cream [Emla Cream 2.5%/2.5%] 1 applic TOPICAL DAILY PRN 11/30/20 [History] Midodrine HCl [ProAmatine] 10 mg PO DIRECTED 11/30/20 [History] metroNIDAZOLE [Flagyl] 500 mg PO BID 11/30/20 [History] Follow up Appointment(s)/Referral(s): None,Stated [Primary Care Provider] - 1-2 days Discharge Disposition: - Preliminary Cause of Preliminary Cause of : Liver cirrhosis, cardiorenal syndrome
--- NOTE | 2020-12-10 21:36 | PCN ---
PROCEDURE NOTE ADDENDUM: PROCEDURE NOTE: Paracentesis abdominis. PREOP DIAGNOSIS: Abdominal ascites. POSTOP DIAGNOSIS: Abdominal ascites. PROCEDURE PERFORMED: Paracentesis abdominis. DESCRIPTION OF PROCEDURE: The abdomen was cleansed with chlorhexidine. It was draped. Skin and deeper tissues were anesthetized with 1% lidocaine. The paracentesis needle catheter device was inserted into the abdominal cavity. Unfortunately, there was only minimal fluid to be able to be removed from the abdominal cavity. The patient tolerated the procedure well. The catheter was removed. There was no immediate complication. The patient tolerated the procedure well. A bandage was placed over the area of the attempted paracentesis. Not enough fluid was obtained to be sent to the laboratory for analysis. MMODL / IJN: [id number] /
--- NOTE | 2020-12-24 14:10 | CDI ---
Documentation Clarification Form Date: 12/24/2020 02:06:59 PM From: Radha Frost RN, CCDS Admit Date: 12/01/2020 10:44:00 PM Patient Name: Radha Conn Visit Number: [id number] Discharge Date: 12/01/2020 11:30:00 PM ATTENTION: The Clinical Documentation Specialists (CDI) and [facility] Coding Staff appreciate your assistance in clarifying documentation. Please respond to the clarification below the line at the bottom and electronically sign. The CDI & [facility] Coding staff will review the response and follow-up if needed. Please note: Queries are made part of the Legal Health Record. If you have any questions, please contact the author of this message via ITS. Dr. Sherine Skaggs The patient presented with concern for spontaneous bacterial peritonitis. Additional clarification regarding the etiology/cause of the clinical indicators is requested. History/Risk Factors: Heptorenal syndrome, ERD on HD, Lower GIB, GEORGES, PA, HTN Clinical Indicators: 11/30 H&P: "Patient the was started on antibiotics with concerns of spontaneous bacterial peritonitis patient is not behaving like typical in his back to peritonitis but anyway will continue with antibiotics ultrasound-guided paracentesis will be obtained mostly for diagnostic purposes." 12/01 Attending Progress note: "Patient the was started on antibiotics with concerns of spontaneous bacterial peritonitis patient is not behaving like typical in his back to peritonitis but anyway will continue with antibiotics ultrasound-guided paracentesis will be obtained mostly for diagnostic purposes. Plan: -Hemoptysis and lower GI bleed: Secondary to anticoagulation which will be held gastroenterology evaluated the patient -Abdominal pain possibility of spontaneous bacterial peritonitis cannot be ruled out , patient is being continued on Rocephin." 11/29 & 12/01 WBC: 16.8/21.3 11/29-12/01 Lactic acid: 5.7/3.9/3.5/2.9/3.1/1.9 Blood cultures: negative x 2 11/29 2218 Vital signs: Temp 98.8, HR 74, RR 18, B/P 95/58, Spo2 100% 2L NC 11/30 2229 Vital signs: Temp 97.6, HR 55, RR 28, B/P 117/71, Spo2 86% on 100% NRB Treatment: Ceftriaxone 2gm IVPB x 1 followed by 1 Gm IVPB QD IV Vanco PTD / 1L 0.9% NS IVF Bolus In your professional opinion, please clarify if these findings signify one of the following conditions: [ ] Sepsis POA [ ] Sepsis, Not POA [ ] Sepsis ruled out [ ] Severe Sepsis with organ failure [ ] Septic Shock [ ] Other, please specify [ ] Unable to determine SIRS Criteria: 2 or more of the following may indicate SIRS -Temperature < 96.8F (36C) or > 101.0F (38.3C) -Heart Rate > 90 bpm -Respiratory Rate > 20 breaths/min or PaCO2 < 32 mmHg -White Blood Cell Count > 12,000 or < 4,000 cells/mm3 or > 10% bands (Template Last Reviewed: September 2020) No sepsis never documented that. I cannot speak for other physicians documentation MTDD
--- NOTE | 2020-12-24 14:27 | CDI ---
Documentation Clarification Form Mortality Review Date: 12/24/2020 02:11:35 PM From: Radha Frost RN, CCDS Admit Date: 12/01/2020 10:44:00 PM Patient Name: Radha Conn Visit Number: [id number] Discharge Date: 12/01/2020 11:30:00 PM ATTENTION: The Clinical Documentation Specialists (CDI) and [facility] Coding Staff appreciate your assistance in clarifying documentation. Please respond to the clarification below the line at the bottom and electronically sign. The CDI & [facility] Coding staff will review the response and follow-up if needed. Please note: Queries are made part of the Legal Health Record. If you have any questions, please contact the author of this message via ITS. Dr. Sherine Skaggs Your patient has the documented diagnosis of cardiorenal syndrome in the d/c summary. Heart failure is included in this diagnosis and additional information regarding the type & acuity of CHF is requested. History/Risk Factors: HTN, ESRD, HASH, Hepatorenal syndrome, Possible SBP, PAF, cryptogenic Cirrhosis Clinical Indicators: CXR: 12/01 "Clinical correlation is recommended for congestive heart failure and atypical pneumonia." 12/01 A-Team Note: "CXR was ordered by the primary team which showed CHF with congestion and pleural effusions." 12/01 GI Consult: "Fluid overload likely multifactorial and secondary to end- stage renal disease and cirrhosis of the liver." 12/01 Pulmonary consult: "Hypoxemic respiratory failure, likely related to fluid overload, in a patient with end-stage renal disease." 12/01 Attending Progress Note: "Acute hypoxic respiratory failure secondary to fluid overload patient has end- stage renal disease patient probably has hepatorenal syndrome patient is on h hemodialysis will probably undergo hemodialysis today -Generalized weakness and tiredness: mostly secondary to her chronic medical problems that is cirrhosis and the renal failure patient prognosis overall is poor same thing was discussed with the family members." 12/02 D/C Summary: "Patient was admitted for generalized weakness does have cirrhosis and the cardiorenal syndrome her prognosis was extremely poor patient was transferred to ICU because of hypoxic respiratory failure which is secondary to pulmonary edema from end-stage renal disease." 11/29 2218 VS/Pulse OX: Temp 98.8, HR 74, RR 18, B/P 95/58, Spo2 100% 2L NC BNP: not checked 11/09 2020 Echocardiogram Results: EF 55-60% 11/30 Chest X Ray: Moderate to marked CHF with superimposed infiltrate not excluded. Moderate right and small left pleural effusions." Treatment: 12/01 Lasix 80 mg IVP OT 11/30 1L 0.9% NS IVF Bolus Home Meds: Lasix 40 mg PO QD In your professional opinion, can you please clarify the [acuity and type] of CHF if known? [ ] Acute Systolic Heart Failure (reduced EF) [ ] Chronic Systolic Heart Failure (reduced EF) [ ] Acute on Chronic Systolic Heart Failure (reduced EF) [ ] Acute Diastolic Heart Failure (preserved EF) [ ] Chronic Diastolic Heart Failure (preserved EF) [ ] Acute on Chronic Diastolic Heart Failure (preserved EF) [ ] Acute Systolic & Diastolic Heart Failure [ ] Chronic Systolic & Diastolic Heart Failure [ ] Acute on Chronic Heart Failure Systolic & Diastolic Heart Failure [ ] Other, please specify [ ] Unable to determine (Template Last Revised: September 2020) No CHF and my impression is only as per my note. MTDD
== END 2020-12-01 23:30 | disposition expired | DRG 441 ==
LOC: EC 22:15 → 6NMEDSUR 11-30 04:47 → 5NMEDONC 11-30 13:01 → 2SICU 12-01 08:01 → OBSVTOIN 12-01 22:44 → UNDODISOB 12-01 23:30
PROVIDERS: ADMIT Hospitalist; ATTEND Hospitalist
PROC: 5A1D70Z Performance of Urinary Filtration, Intermittent, Less than 6 Hours Per Day (ICD-10-PCS; 2020-11-30)
PROC: 5A09357 Assistance with Respiratory Ventilation, Less than 24 Consecutive Hours, Continuous Positive Airway Pressure (ICD-10-PCS; 2020-11-30)
PROC: 3E033XZ Introduction of Vasopressor into Peripheral Vein, Percutaneous Approach (ICD-10-PCS; principal; 2020-12-01)
PROC: 02H633Z Insertion of Infusion Device into Right Atrium, Percutaneous Approach (ICD-10-PCS; 2020-12-01)
PROC: 0W9G3ZZ Drainage of Peritoneal Cavity, Percutaneous Approach (ICD-10-PCS; 2020-12-01)
DX: K76.7 Hepatorenal syndrome (principal); K65.2 Spontaneous bacterial peritonitis; J96.01 Acute respiratory failure with hypoxia; N18.6 End stage renal disease; D68.32 Hemorrhagic disorder due to extrinsic circulating anticoagulants; R04.2 Hemoptysis; R18.8 Other ascites; J90 Pleural effusion, not elsewhere classified; I12.0 Hypertensive chronic kidney disease with stage 5 chronic kidney disease or end stage renal disease; K92.1 Melena; K72.90 Hepatic failure, unspecified without coma; K74.69 Other cirrhosis of liver; I48.0 Paroxysmal atrial fibrillation; Z99.2 Dependence on renal dialysis; Z66 Do not resuscitate; Z51.5 Encounter for palliative care; Z20.822 Contact with and (suspected) exposure to COVID-19; K75.81 Nonalcoholic steatohepatitis (NASH); R54 Age-related physical debility; T45.515A Adverse effect of anticoagulants, initial encounter; E87.70 Fluid overload, unspecified; G89.29 Other chronic pain; E87.6 Hypokalemia; K52.9 Noninfective gastroenteritis and colitis, unspecified; Z79.01 Long term (current) use of anticoagulants; Z79.899 Other long term (current) drug therapy; Z90.710 Acquired absence of both cervix and uterus; Z98.42 Cataract extraction status, left eye; Z98.41 Cataract extraction status, right eye; Z87.19 Personal history of other diseases of the digestive system; Z98.890 Other specified postprocedural states; Z88.0 Allergy status to penicillin; Z88.8 Allergy status to other drugs, medicaments and biological substances
CPT/HCPCS: 36415; 36600; 71045; 74018; 74176; 80048; 80053; 82150; 82805; 83605; 83690; 83735; 84484; 85025; 85379; 87040; 87635; 90935; 93005; 94760; 96365; 96366; 99285